=== PATIENT | male | born 1970 ===

== ENCOUNTER 2017-10-20 20:38 | Inpatient (IN) | payer OTHER ==
[2017-10-21] MEDS: ASPIRIN 81 MG PO SCH (06:37)
[2017-10-21] MEDS: METOPROLOL TARTRATE 12.5 MG TAB PO SCH (06:37)
[2017-10-21] MEDS: NITROGLYCERIN OINT 1 INCH/GM PACKET TOPICAL SCH ×2 (06:42→16:04)
[2017-10-21] MEDS ORDERED: IV FLUID CONTINUATION 900 ML IV ONE (08:13)
[2017-10-21] MEDS ORDERED: fentaNYL (PF) 50 MCG/ML 2 ML AMP ONE (08:23)
[2017-10-21] MEDS ORDERED: MIDAZOLAM 2 MG/2 ML VIAL ONE (08:23)
[2017-10-21] MEDS ORDERED: LIDOCAINE 2% INJ 20 MG/ML (20 ML MDV) ONE (08:23)
[2017-10-21] MEDS ORDERED: VERAPAMIL 2.5 MG/ML 2 ML AMP ONE (08:23)
[2017-10-21] MEDS ORDERED: fentaNYL (PF) 50 MCG/ML 2 ML AMP IV ONE (08:30)
[2017-10-21] MEDS: MIDAZOLAM 2 MG/2 ML VIAL IV ONE ×2 (08:30→08:42)
[2017-10-21] MEDS ORDERED: LIDOCAINE 2% INJ 20 MG/ML SQ ONE (08:37)
[2017-10-21] MEDS ORDERED: HEPARIN SODIUM 1,000 UN/ML (10ML VL) ONE (08:39)
[2017-10-21] MEDS ORDERED: VERAPAMIL SYRINGE (5 MG/10 ML) INTRAARTER ONE (08:39)
[2017-10-21] MEDS ORDERED: HEPARIN SODIUM 1,000 UN/ML (10ML VL) IV ONE (08:41)
[2017-10-21] MEDS ORDERED: ATORVASTATIN 20 MG TAB PO SCH (09:00)
[2017-10-21] MEDS ORDERED: RX INFO: IV CONTRAST WAS GIVEN 1 EACH MISC MISCELLANE PRN (09:10)
[2017-10-21] MEDS ORDERED: IOPAMIDOL-370 125ML BTL INJ ONE (09:10)
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
[2017-10-21] MEDS ORDERED: MD COMMUNICATION TO PHARMACY 1 EACH MISC PO ONE (09:27)
[2017-10-21 10:03] LABS: HCT 50.5 % (39.0-53.0); HGB 16.7 gm/dL (13.0-17.5); MCH 30.1 pg (25.0-35.0); MCHC 33.2 g/dL (31.0-37.0); MCV 90.6 fL (80.0-100.0); Mean Platelet Volume 7.6; Platelet Count 239 k/uL (150-450); RBC 5.57 m/uL (4.30-5.90); RDW 13.9 % (11.5-15.5); WBC 8.5 k/uL (3.8-10.6)
[2017-10-21 10:11] LABS: INR 1.2 (<1.2); Partial Thromboplastin Time 60.3 sec (22.0-30.0); Prothrombin Time 11.4 sec (9.0-12.0)
[2017-10-21 10:13] LABS: ALT 64 U/L (21-72); AST 28 U/L (17-59); Albumin 4.2 g/dL (3.5-5.0); Alkaline Phosphatase 59 U/L (38-126); Anion Gap 13 mmol/L; Blood Urea Nitrogen 13 mg/dL (9-20); Calcium 9.4 mg/dL (8.4-10.2); Carbon Dioxide 23 mmol/L (22-30); Chloride 106 mmol/L (98-107); Glucose 115 mg/dL (74-99); Potassium 4.7 mmol/L (3.5-5.1); Sodium 142 mmol/L (137-145); Total Bilirubin 0.6 mg/dL (0.2-1.3); Total Protein 7.3 g/dL (6.3-8.2)
[2017-10-21 10:39] LABS: Eosinophils # (M) 0.17 k/uL (0-0.7); Lymphocytes # (M) 3.23 k/uL (1.0-4.8); Monocytes # (M) 0.51 k/uL (0-1.0); Neutrophils # (M) 4.59 k/uL (1.3-7.7); Neutrophils % (M) 54 %; Nucleated Red Blood Cells 0 /100 WBC (0-0); Total Cells Counted 100
[2017-10-21] MEDS: SODIUM CHLORIDE 0.9% 1,000 ML IV SCH (11:17)
[2017-10-21] MEDS: HEPARIN SOD,PORK IN 0.45% NACL 25,000 UNIT in 0.45% NACL 1 500ML.BAG IV SCH (11:17)
[2017-10-21 11:28] LABS: Cholesterol 224 mg/dL (<200); HDL Cholesterol 40 mg/dL (40-60); LDL Cholesterol,Calculated 169 mg/dL (0-99); Triglycerides 73 mg/dL (<150)
[2017-10-21 11:43] LABS: Magnesium 2.1 mg/dL (1.6-2.3)
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
[2017-10-21] MEDS ORDERED: NITROGLYCERIN SL TABS 0.4 MG TAB SUBLINGUAL PRN (13:15)
[2017-10-21] MEDS ORDERED: MORPHINE SULF 5MG/10ML VL IV STA (13:25)
[2017-10-21] MEDS: MORPHINE SULFATE 4MG/4ML SYRG IVP PRN ×2 (13:28→15:58)
[2017-10-21 13:55] LABS: Appearance,Urine Clear (Clear); Bilirubin,Urine Negative (Negative); Blood,Urine Negative (Negative); Color,Urine Light Yellow; Glucose,Urine (UA) Negative (Negative); Ketones,Urine Negative (Negative); Leukocyte Esterase,Urine Negative (Negative); Nitrite,Urine Negative (Negative); PH, Urine 6.5 (5.0-8.0); Protein,Urine Negative (Negative); Specific Gravity,Urine 1.033 (1.001-1.035); Urobilinogen,Urine <2.0 mg/dL (<2.0)
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
--- NOTE | 2017-10-21 14:39 | P.CNPUL ---
History of Present Illness Consult date: 10/21/17 Reason for consult: chest pain Chief complaint: CAD, chest pain History of present illness: Consult dated 10/21/2017 47-year-old male from seen in consultation. He appeared apparently scheduled for bypass grafting tomorrow. He apparently underwent recent cardiac catheterization and was found have significant three-vessel disease. The catheterization revealed significant disease in the left main coronary artery, the mid LAD, and also the distal right coronary artery. The patient is a heavy smoker. Has been smoking for at least 30 years a pack or more a day. Sees Dr. Stone as his primary doctor. Only medication he takes at home with Suboxone. A chest x-ray will be ordered. Also, an EKG showed some mild elevation of the ST segments in the inferior leads. He did have elevated troponins as well. The patient will need a spirometry before the surgery tomorrow. We'll also instruct him on the proper use of the incentive spirometer in anticipation of bypass grafting and postoperative care. Review of Systems A 12 point review of system is positive for chest pain. The patient also had complaints of shortness of breath as well as diaphoresis and dizziness. Past Medical History Additional Past Medical History / Comment(s): Remote history of hyperlipidemia Last Myocardial Infarction Date:: October 2017 History of Any Multi-Drug Resistant Organisms: None Reported Past Surgical History: Orthopedic Surgery Additional Past Surgical History / Comment(s): cervical fusion, hand surgery- reattachment of his right thumb Past Anesthesia/Blood Transfusion Reactions: No Reported Reaction Past Psychological History: No Psychological Hx Reported Smoking Status: Current every day smoker (Smokes 1 pack per day.) Past Alcohol Use History: None Reported (History of EtOH abuse) Past Drug Use History: Marijuana Additional Drug Use History / Comment(s): History of prescription drug abuse, currently on Suboxone. - Past Family History Family Additional Family Medical History / Comment(s): Father diagnosed with CAD in his late 70s otherwise his family normally lived to older age and healthy overall. Denies any history of premature CAD Medications and Allergies Home Medications Medication Instructions Recorded Confirmed Type Buprenorphine HCl/Naloxone HCl 0.5 film SUBLINGUAL DAILY 10/20/17 10/21/17 History [Suboxone 8 mg-2 mg Sl Film] Allergies Allergy/AdvReac Type Severity Reaction Status Date / Time No Known Allergies Allergy Verified 04/15/18 11:41 Physical Exam Osteopathic Statement: *. No significant issues noted on an osteopathic structural exam other than those noted in the History and Physical/Consult. Vitals: Vital Signs Temp Pulse Pulse Pulse Resp BP Pulse Ox 10/21/17 12:00 55 L 48 L 10/21/17 11:55 55 L 149/92 10/21/17 10:55 48 L 14 142/80 10/21/17 10:25 55 L 12 147/88 10/21/17 09:55 48 L 12 142/80 10/21/17 09:40 55 L 12 132/84 10/21/17 09:25 55 L 14 135/92 10/21/17 09:10 55 L 14 127/74 99 10/21/17 08:10 78 14 10/21/17 08:09 96.9 F L 78 16 110/74 99 10/21/17 06:28 97.7 F 63 18 109/69 96 10/21/17 04:00 97.7 F 63 18 109/69 96 10/21/17 00:00 97.6 F 60 19 100/59 100 10/20/17 22:41 97.6 F 60 19 100/59 100 Intake and Output 10/20/17 10/21/17 10/21/17 22:59 06:59 14:59 Intake Total 300 778 Output Total 800 Balance 300 -22 Intake: IV 200 Intake, IV Titration 338 Amount Sodium Chloride 0.9% 1, 338 000 ml @ 75 mls/hr IV . [id number] [facility] Rx#:[id number] Oral 300 240 Output: Urine 800 Other: Voiding Method Toilet Toilet Urinal Urinal # Voids 0 Weight 93.8 kg 94 kg No acute distress, oriented 3. Nasal O2 in place. HEENT examination is grossly unremarkable. Mucous membranes are moist. No oral lesions. Neck supple. Full range of motion. No adenopathy thyromegaly or neck vein distention. Cardiovascular examination reveals regular rhythm rate. S1-S2 normal. No S3 or S4. No discernible murmur noted. Lungs reveal clear breath sounds. Her sounds are equal bilaterally. No adventitious lung sounds including wheezes rhonchi or crackles. Abdomen soft bowel sounds are heard. No masses or tenderness. Extremities are intact. No cyanosis clubbing or edema. Skin is without rash or lesion. Neurologic examination is brief but nonfocal. Results - Laboratory Findings CBC and BMP: 10/21/17 09:51 10/21/17 09:51 PT/INR, D-dimer PT 11.4 sec (9.0-12.0) 10/21/17 09:51 INR 1.2 (<1.2) H 10/21/17 09:51 Abnormal lab findings: Abnormal Labs 10/21/17 10/21/17 10/21/17 09:51 09:51 09:51 INR 1.2 H APTT 60.3 H Glucose 115 H Troponin I Cholesterol 224 H LDL Cholesterol, Calc 169 H 10/21/17 09:51 INR APTT Glucose Troponin I 1.060 H* Cholesterol LDL Cholesterol, Calc - Diagnostic Findings Chest x-ray: image reviewed (Meds and labs are reviewed.) Assessment and Plan Assessment: Assessment Severe three-vessel coronary artery disease, status post bypass grafting in the morning Previous history of heavy tobacco use History of prescription drug abuse, currently on Suboxone Vague history of hyperlipidemia Plan: Plan dated 10/21/2017 The patient will get a chest x-ray. We'll also make sure that we get bedside spirometry. We'll instruct him on the use of the incentive spirometer. Additional recommendations and suggestions are forthcoming. Surgery will take place tomorrow. My partner will see the patient postoperatively. Time with Patient: Greater than 30
--- NOTE | 2017-10-21 15:22 | XR ---
EXAMINATION TYPE: XR chest 1V portable DATE OF EXAM: 10/21/2017 Comparison: None Clinical History: 47-year-old male PreOp Cardiac Surgery Findings: The heart is normal size. Aorta and pulmonary vasculature within normal limits. Strandy atelectasis l ower lungs. No consolidation or pleural effusion. ACDF hardware. Impression: No acute cardiopulmonary process.
--- NOTE | 2017-10-21 15:32 | US ---
EXAMINATION TYPE: US carotid duplex BILAT DATE OF EXAM: 10/21/2017 COMPARISON: NONE CLINICAL HISTORY: 47-year-old male preoperative cardiac surgery. Pre op cardiac surgery, exam done po rtable in ICU TECHNIQUE: Carotid duplex ultrasound examination. Indirect Doppler criteria was utilized. FINDINGS: EXAM MEASUREMENTS: RIGHT: Peak Systolic Velocity (PSV) cm/sec ----- Right CCA: 75.6 ----- Right ICA: 66.0 ----- Right ECA: 101.3 ICA/CCA ratio: 0.9 RIGHT: End Diastole cm/sec ----- Right CCA: 22.3 ----- Right ICA: 26.2 ----- Right ECA: 22.1 LEFT: Peak Systolic Velocity (PSV) cm/sec ----- Left CCA: 72.2 ----- Left ICA: 77.8 ----- Left ECA: 97.3 ICA/CCA ratio: 1.1 LEFT: End Diastole cm/sec ----- Left CCA: 20.6 ----- Left ICA: 26.3 ----- Left ECA: 20.2 VERTEBRALS (direction of flow): Right Vertebral: Antegrade Left Vertebral: Antegrade Rhythm: Normal Railroad Operator notes: Bilateral intimal thickening, minimal plaque bilateral bulb, no elevated velocitie s, no significant stenosis. IMPRESSION: No hemodynamically significant stenosis appreciated in either internal carotid artery. Criteria for Assigning % of Stenosis / Diameter reduction (Estimation based on the indirect measurements of the internal carotid artery velocities (ICA PSV). 1. Normal (no stenosis)=ICA PSV < 125 cm/s: ratio < 2.0: ICA EDV<40 cm/s. 2. Less than 50% stenosis=ICA PSV < 125 cm/s: ratio < 2.0: ICA EDV<40 cm/s. 3. 50 to 69% stenosis=ICA PSV of 125 to 230 cm/s: ration 2.0 ? 4.0: ICA EDV 40-100 cm/s. 4. Greater than 70% stenosis to near occlusion= ICA PSV > 230 cm/s: ratio > 4.0: ICA EDV > 100 cm/s. 5. Near occlusion= ICA PSV velocities may be low or undetectable: variable ratio and ICA EDV. 6. Total occlusion=unable to detect flow.
[2017-10-21] MEDS: HEPARIN SODIUM,PORCINE 5,000 UNIT/ML 1 ML VIAL IV PRN (18:08)
[2017-10-21 18:24] LABS: Glucose,Whole Blood 99 mg/dL (75-99)
[2017-10-21] MEDS: MUPIROCIN 2% OINT 22 GM TUBE NASAL SCH (21:58)
--- NOTE | 2017-10-21 23:01 | P.CONS ---
History of Present Illness - Reason for Consult Consult date: 10/21/17 Medical management - Chief Complaint Chest pain - History of Present Illness Patient is a 47-year-old male with a known history of substance abuse currently on Suboxone, active cigarette smoking was initially presented to [facility] with complaints of chest pain and shortness of breath while driving and is about to pass out. Patient withdrew to the side and EMS was called. Chest pain is mainly left retrosternal, 10 x 10 severity squeezing- like pain radiating to the neck and associated with shortness of breath and sweating. Patient also has nausea. No episodes of vomiting. Patient was found have ST-T wave changes and was initially taken to [facility]. Initial troponin was negative at 0.017. Troponin was trending up to 0.1 and 0.5 and 1.060. Patient was given a dose of Lovenox at [facility]. After evaluation by cardiology and increasing troponin level and EKG changes with ST elevation patient was eventually transferred to [facility] for immediate cardiac catheterization. Patient was started on heparin drip. Patient has been having hot and cold flashes and sweating for the past 2 weeks and also exertional shortness of breath for the past 2 weeks. Patient is not any medications for hyperlipidemia at home. Patient's father had coronary artery disease/PA at age 70. Patient denied any recent illnesses or sick contacts. Cardiac catheterization showed Diffuse coronary artery disease with a 60-70% ostial stenosis of the left main, total occlusion of the mid LAD and critical lesion involving the distal RCA. There are collaterals from the right to the left anterior descending Due to severe coronary artery disease, and left main CAD, CT surgery was consulted to evaluate for bypass graft. Review of Systems Constitutional: Patient denies any fever or chills . No generalized weakness or weight loss. Abdomen: Patient denied nausea vomiting and diarrhea and abdominal pain. Cardiovascular: Patient denies any chest pain or short of breath no palpitations. Respiratory: patient denied any cough is from production. No shortness of breath Neurologic: Patient denied any numbness or tingling headache. Musculoskeletal: Patient denies any complaints of joint swelling or deformity. Skin: Negative Psychiatric: Negative Endocrine: No heat or cold intolerance. No recent weight gain. Genitourinary: No dysuria or hematuria. All other 14 point ROS negative except the above Past Medical History Additional Past Medical History / Comment(s): Remote history of hyperlipidemia Last Myocardial Infarction Date:: October 2017 History of Any Multi-Drug Resistant Organisms: None Reported Past Surgical History: Orthopedic Surgery Additional Past Surgical History / Comment(s): cervical fusion, hand surgery- reattachment of his right thumb Past Anesthesia/Blood Transfusion Reactions: No Reported Reaction Past Psychological History: No Psychological Hx Reported Smoking Status: Current every day smoker (Smokes 1 pack per day.) Past Alcohol Use History: None Reported (History of EtOH abuse) Past Drug Use History: Marijuana Additional Drug Use History / Comment(s): History of prescription drug abuse, currently on Suboxone. - Past Family History Family Additional Family Medical History / Comment(s): Father diagnosed with CAD in his late 70s otherwise his family normally lived to older age and healthy overall. Denies any history of premature CAD Medications and Allergies Home Medications Medication Instructions Recorded Confirmed Type Buprenorphine HCl/Naloxone HCl 0.5 film SUBLINGUAL DAILY 10/20/17 10/21/17 History [Suboxone 8 mg-2 mg Sl Film] Allergies Allergy/AdvReac Type Severity Reaction Status Date / Time No Known Allergies Allergy Verified 10/21/17 11:41 Physical Exam Vitals: Vital Signs Temp Pulse Pulse Pulse Pulse Pulse Pulse 10/21/17 21:00 54 L 10/21/17 20:00 98.0 F 61 10/21/17 19:00 55 L 10/21/17 18:00 53 L 10/21/17 17:00 51 L 10/21/17 16:00 98.1 F 53 L 49 L 49 L 49 L 49 L 10/21/17 15:00 55 L 10/21/17 14:00 60 52 L 52 L 52 L 10/21/17 13:57 97.6 F 10/21/17 12:55 55 L 10/21/17 12:00 55 L 48 L 10/21/17 11:55 55 L 10/21/17 10:55 48 L 10/21/17 10:25 55 L 10/21/17 09:55 48 L 10/21/17 09:40 55 L 10/21/17 09:25 55 L 10/21/17 09:10 55 L 10/21/17 08:10 78 10/21/17 08:09 96.9 F L 78 10/21/17 06:28 97.7 F 63 10/21/17 04:00 97.7 F 63 10/21/17 00:00 97.6 F 60 10/20/17 22:41 97.6 F 60 Resp BP BP Pulse Ox 10/21/17 21:00 21 125/81 97 10/21/17 20:00 16 125/87 98 10/21/17 19:00 12 120/78 96 10/21/17 18:00 13 123/90 96 10/21/17 17:00 14 122/86 97 10/21/17 16:00 16 117/79 97 10/21/17 15:00 11 L 122/81 96 10/21/17 14:00 16 129/83 96 10/21/17 13:57 18 96 10/21/17 12:55 12 149/95 10/21/17 12:00 10/21/17 11:55 149/92 10/21/17 10:55 14 142/80 10/21/17 10:25 12 147/88 10/21/17 09:55 12 142/80 10/21/17 09:40 12 132/84 10/21/17 09:25 14 135/92 10/21/17 09:10 14 127/74 99 10/21/17 08:10 14 10/21/17 08:09 16 110/74 99 10/21/17 06:28 18 109/69 96 10/21/17 04:00 18 109/69 96 10/21/17 00:00 19 100/59 100 10/20/17 22:41 19 100/59 100 Intake and Output 10/21/17 10/21/17 10/21/17 06:59 14:59 22:59 Intake Total 853 1359.667 Output Total 800 1100 Balance 53 259.667 Intake: IV 200 150 Sodium Chloride 0.9% 1, 150 000 ml @ 75 mls/hr IV . [id number] [facility] Rx#:[id number] Intake, IV Titration 413 509.667 Amount Heparin Sod,Pork in 0.45% 134.667 NaCl 25,000 unit In 0.45 % NaCl 1 500ml.bag @ 10. 64 UNITS/KG/HR 20 mls/hr IV .Q24H [facility] Rx#: [id number] Sodium Chloride 0.9% 1, 413 375 000 ml @ 75 mls/hr IV . [id number] [facility] Rx#:[id number] Oral 240 700 Output: Urine 800 1100 Other: Voiding Method Toilet Toilet Toilet Urinal Urinal Urinal # Voids 0 0 Weight 94 kg 96.3 kg PHYSICAL EXAMINATION: Patient is lying in the bed comfortably, no acute distress, awake alert and oriented.. HEENT: Normocephalic. Neck is supple. Pupils reactive. Nostrils clear. Oral cavity is moist. Ears reveal no drainage. Neck reveals no JVD, carotid bruits, or thyromegaly. CHEST EXAMINATION: Trachea is central. Symmetrical expansion. Lung ruiz clear to auscultation and percussion. CARDIAC: Normal S1, S2 with no gallops. No murmurs ABDOMEN: Soft. Bowel sounds normal. No organomegaly. No abdominal bruits. Extremities: reveal no edema. No clubbing or cyanosis Neurologically awake, alert, oriented x3 with well-coordinated movements. No focal deficits noted Skin: No rash or skin lesions. Psychiatric: Coperative. Nonsuicidal Musculoskeletal: No joint swelling or deformity. Normal range of motion. Results CBC & Chem 7: 10/21/17 09:51 10/21/17 09:51 Labs: Abnormal Lab Results - Last 24 Hours (Table) 10/21/17 10/21/17 10/21/17 Range/Units 09:51 09:51 09:51 INR 1.2 H (<1.2) APTT 60.3 H (22.0-30.0) sec Glucose 115 H (74-99) mg/dL Troponin I (0.000-0.034) ng/mL Cholesterol 224 H (<200) mg/dL LDL Cholesterol, Calc 169 H (0-99) mg/dL 10/21/17 10/21/17 Range/Units 09:51 16:25 INR (<1.2) APTT 32.2 H (22.0-30.0) sec Glucose (74-99) mg/dL Troponin I 1.060 H* (0.000-0.034) ng/mL Cholesterol (<200) mg/dL LDL Cholesterol, Calc (0-99) mg/dL Assessment and Plan Assessment: Acute ST elevated PA status post cardiac catheterization showing multivessel disease including left main. Being evaluated by CT surgery for CABG Asymptomatic bradycardia with heart rate in 50s. Likely due to metoprolol Hyperlipidemia with LDL 169 Exertional shortness of breath for the past 2 weeks Nicotine addiction Substance abuse currently on Suboxone DVT prophylaxis. Patient is already on heparin drip for acute PA Plan: Patient will be continued on aspirin, statins, metoprolol at low-dose and lisinopril. Continued on heparin drip. Pain management with morphine. Will hold Suboxone for now. Continue with IV fluids. TSH within normal limits. Cardiology, pulmonary and CT surgery is following. Continue with the current management and further recommendations based on the clinical course. Time with Patient: Greater than 30
[2017-10-21 23:17] LABS: Hemoglobin A1C 5.5 % (4.0-6.0)
[2017-10-21 23:44] LABS: Hepatitis B Core IgM Non-Reactive (Non-Reactive)
[2017-10-22 00:14] LABS: Hepatitis A Antibody IgM Non-Reactive (Non-Reactive)
[2017-10-22] MEDS: NITROGLYCERIN OINT 1 INCH/GM PACKET TOPICAL SCH ×3 (00:45→16:06)
[2017-10-22] MEDS: SODIUM CHLORIDE 0.9% 1,000 ML IV SCH ×2 (00:48→14:53)
[2017-10-22 06:27] LABS: HCT 46.6 % (39.0-53.0); HGB 15.4 gm/dL (13.0-17.5); MCH 29.9 pg (25.0-35.0); MCHC 33.1 g/dL (31.0-37.0); MCV 90.5 fL (80.0-100.0); Mean Platelet Volume 7.5; Platelet Count 218 k/uL (150-450); RBC 5.15 m/uL (4.30-5.90); RDW 13.7 % (11.5-15.5); WBC 8.4 k/uL (3.8-10.6)
[2017-10-22] MEDS: HEPARIN SOD,PORK IN 0.45% NACL 25,000 UNIT in 0.45% NACL 1 500ML.BAG IV SCH (06:34)
[2017-10-22] MEDS: MORPHINE SULFATE 4MG/4ML SYRG IVP PRN (06:38)
[2017-10-22 06:56] LABS: Anion Gap 10 mmol/L; Blood Urea Nitrogen 11 mg/dL (9-20); Carbon Dioxide 22 mmol/L (22-30); Chloride 109 mmol/L (98-107); Glucose 107 mg/dL (74-99); Potassium 4.4 mmol/L (3.5-5.1); Sodium 141 mmol/L (137-145)
[2017-10-22] MEDS: HEPARIN SODIUM,PORCINE 5,000 UNIT/ML 1 ML VIAL IV PRN (07:14)
[2017-10-22 07:41] LABS: Eosinophils # (M) 0.08 k/uL (0-0.7); Lymphocytes # (M) 1.68 k/uL (1.0-4.8); Monocytes # (M) 0.17 k/uL (0-1.0); Neutrophils # (M) 6.47 k/uL (1.3-7.7); Neutrophils % (M) 77 %; Nucleated Red Blood Cells 0 /100 WBC (0-0); Total Cells Counted 100
[2017-10-22 07:46] LABS: Anisocytosis (M) Present
--- NOTE | 2017-10-22 08:16 | PN ---
PROGRESS NOTE Mr. Page is a 47-year-old male who presented with evidence of myocardial infarction, underwent cardiac catheterization, was found to have a totally occluded LAD with severe stenosis in the right coronary with collaterals from right to left as well as moderate significant disease in the left main. He has been evaluated to undergo coronary artery bypass grafting. He is complaining of some chest discomfort and dyspnea on and off during the night and early this morning. Hemodynamically stable. He has no evidence of tachycardia or bradycardia. He was seen by the surgical team and awaiting decision regarding timing of surgery. The patient continues on IV heparin; in addition to aspirin, Lipitor 80 mg daily, Zestril 5 mg daily, metoprolol 12 .5 mg daily, and nitro paste 1 inch q.8 hours. PHYSICAL EXAMINATION: Blood pressure 119/72 with the heart rate in the 50s. LUNG: Clear. HEART: Regular rate and rhythm. S1, S2. No S3. No rub. ABDOMEN: Soft, nontender. EXTREMITIES: No edema. Right radial pulse intact. LAB DATA: Lab data revealed a potassium 4.4. BUN and creatinine 11 and 0.72. Hemoglobin of 15.4. His cholesterol on admission was 224 with an LDL of 169. IMPRESSION: 1. Severe triple-vessel coronary artery disease. 2. Status post myocardial infarction. 3. Chronic tobacco use. 4. Hyperlipidemia. RECOMMENDATION: Patient will be continued on IV heparin. An echocardiogram with Doppler will be obtained. We will await the surgical input regarding the time of surgery. Patient would require surgical intervention soon because of the ongoing discomfort. Those findings and recommendations were discussed with the patient. FREDDIE / ERICH: [id number] /
[2017-10-22] MEDS: METOPROLOL TARTRATE 12.5 MG TAB PO SCH ×2 (08:45→08:51)
[2017-10-22] MEDS: MUPIROCIN 2% OINT 22 GM TUBE NASAL SCH ×2 (08:45→21:48)
[2017-10-22] MEDS: ATORVASTATIN 80 MG TAB PO SCH (08:45)
[2017-10-22] MEDS: ASPIRIN 81 MG PO SCH (08:56)
[2017-10-22] MEDS ORDERED: LISINOPRIL 5 MG TAB PO SCH (09:00)
[2017-10-22] MEDS: MORPHINE ORAL SOLN 10 MG/5 ML CUP PO PRN ×3 (10:07→23:02)
--- NOTE | 2017-10-22 10:12 | ECHOF ---
Referral Reason:preoperative CABG MEASUREMENTS -------- HEIGHT: 170.2 cm WEIGHT: 95.3 kg BP: 111/74 RVIDd: 3.1 cm (< 3.3) IVSd: 1.2 cm (0.6 - 1.1) LVIDd: 4.3 cm (3.9 - 5.3) LVPWd: 1.0 cm (0.6 - 1.1) IVSs: 1.6 cm LVIDs: 3.2 cm LVPWs: 1.6 cm LA Diam: 3.6 cm (2.7 - 3.8) LAESV Index (A-L): 19.96 ml/m Ao Diam: 3.0 cm (2.0 - 3.7) AV Cusp: 1.9 cm (1.5 - 2.6) MV EXCURSION: 14.230 mm (> 18.000) MV EF SLOPE: 106 mm/s (70 - 150) EPSS: 0.3 cm MV E Apollo: 0.71 m/s MV DecT: 208 ms MV A Apollo: 0.60 m/s MV E/A Ratio: 1.18 RAP: 5.00 mmHg RVSP: 19.65 mmHg FINDINGS -------- Sinus rhythm. This was a technically good study. The left ventricular size is normal. There is borderline concentric left ventricular hypertrophy. Overall left ventricular systolic function is normal with, an EF between 55 - 60 %. The right ventricle is normal in size. Normal LA size by volume 22+/-6 ml/m2. The right atrium is normal in size. The aortic valve is trileaflet and appears structurally normal. The mitral valve is normal. Mild tricuspid regurgitation present. Right ventricular systolic pressure is normal at < 35 mmHg. There is no pulmonic regurgitation present. The aortic root size is normal. Normal inferior vena cava with normal inspiratory collapse consistent with estimated right atrial pre ssure of 5 mmHg. There is no pericardial effusion. CONCLUSIONS -------- 1. Sinus rhythm. 2. This was a technically good study. 3. The left ventricular size is normal. 4. There is borderline concentric left ventricular hypertrophy. 5. Overall left ventricular systolic function is normal with, an EF between 55 - 60 %. 6. The right ventricle is normal in size. 7. Normal LA size by volume 22+/-6 ml/m2. 8. The right atrium is normal in size. 9. The aortic valve is trileaflet and appears structurally normal. 10. The mitral valve is normal. 11. Mild tricuspid regurgitation present. 12. Right ventricular systolic pressure is normal at < 35 mmHg. 13. There is no pulmonic regurgitation present. 14. The aortic root size is normal. 15. Normal inferior vena cava with normal inspiratory collapse consistent with estimated right atrial pressure of 5 mmHg. 16. There is no pericardial effusion. LOGISTICS TEAM LEAD: Trinity Beasley RDCS
--- NOTE | 2017-10-22 11:36 | P.PN ---
Subjective Progress Note Date: 10/22/17 Principal diagnosis: Severe multivessel coronary artery disease, non-ST elevated [place] 47-year-old male from seen in consultation. He appeared apparently scheduled for bypass grafting tomorrow. He apparently underwent recent cardiac catheterization and was found have significant three-vessel disease. The catheterization revealed significant disease in the left main coronary artery, the mid LAD, and also the distal right coronary artery. The patient is a heavy smoker. Has been smoking for at least 30 years a pack or more a day. Sees Dr. Stone as his primary doctor. Only medication he takes at home with Suboxone. A chest x-ray will be ordered. Also, an EKG showed some mild elevation of the ST segments in the inferior leads. He did have elevated troponins as well. The patient will need a spirometry before the surgery tomorrow. We'll also instruct him on the proper use of the incentive spirometer in anticipation of bypass grafting and postoperative care. On 10/12/2017 patient seen in follow-up in intensive care unit. He is resting in bed, complaining of burning sternal chest discomfort, that does not change with deep inspiration or position change. [place] acute respiratory complaints, currently on 2 L per nasal cannula with O2 sat at 96%. Hemodynamically stable, afebrile, sinus bradycardia on the monitor with a rate of 49-53 bpm with T-wave inversion in inferior leads. Maintenance IV fluids 0.9 normal seen in the 75 ML per hour, heparin drip is infusing at a rate of 15 u/kg/hr. Patient has Nitropaste on his right upper chest. He was given IV morphine for his persistent sternal chest discomfort. Patient had undergone heart catheterization yesterday and was found to have 60-70% left main disease, a totally occluded LAD with severe stenosis in the right coronary artery with collaterals. Patient remains nothing by mouth. No nausea, no vomiting no diaphoresis. We'll repeat a twelve-lead EKG. Currently awaiting evaluation for coronary artery bypass grafting possibly in next 24 hours. It is lab work shows W BC of 8.4, hemoglobin of 18.4, sodium is 141, potassium is 4.4, chloride is 109, BUN is 11 and creatinine 0.72, troponins was elevated at 1.060. 2-D echocardiogram was completed which revealed left ventricular systolic function within normal limits with EF between 55-60%. There was mild tricuspid regurgitation present, no pulmonary hypertension noted right ventricular systolic pressure was normal at less than 35 mmHg. Pericardial effusion was noted. Objective - Vital Signs Vital signs: Vital Signs Temp 98.3 F 10/22/17 04:00 Pulse 53 L 10/22/17 11:00 Resp 14 10/22/17 11:00 BP 105/73 10/22/17 11:00 Pulse Ox 96 10/22/17 11:00 Intake & Output 10/21/17 10/22/17 10/22/17 18:59 06:59 18:59 Intake Total 7377.442 8485.782 632.521 Output Total 9006 685 2555 Balance 637.667 671.782 -567.479 Weight 96.3 kg 95.7 kg Intake: IV 200 825 375 Sodium Chloride 0.9% 1, 825 375 000 ml @ 75 mls/hr IV . [id number] [facility] Rx#:[id number] Intake, IV Titration 847.667 396.782 17.521 Amount Heparin Sod,Pork in 0.45% 134.667 321.782 17.521 NaCl 25,000 unit In 0.45 % NaCl 1 500ml.bag @ 10. 64 UNITS/KG/HR 20 mls/hr IV .Q24H [facility] Rx#: [id number] Sodium Chloride 0.9% 1, 713 75 000 ml @ 75 mls/hr IV . [id number] [facility] Rx#:[id number] Oral 940 240 Output: Urine 9277 487 6207 Other: Voiding Method Toilet Toilet Urinal Urinal Urinal # Voids 0 0 - Exam GENERAL EXAM: Alert, pleasant 47-year-old white male, complaining of a moderate headache and some burning midsternal chest discomfort, but denies any shortness of breath, appears to be fairly comfortable at rest, no nausea, no vomiting no diaphoresis. HEAD: Normocephalic/atraumatic. EYES: Normal reaction of pupils, equal size. Conjunctiva pink, sclera white. NOSE: Clear with pink turbinates. THROAT: No erythema or exudates. NECK: No masses, no JVD, no thyroid enlargement, no adenopathy. CHEST: No chest wall deformity. Symmetrical expansion. LUNGS: Equal air entry with no crackles, wheeze, rhonchi or dullness. CVS: Regular rate and rhythm, normal S1 and S2, no gallops, no murmurs, no rubs ABDOMEN: Soft, nontender. No hepatosplenomegaly, normal bowel sounds, no guarding or rigidity. EXTREMITIES: No clubbing, no edema, no cyanosis, 2+ pulses and upper and lower extremities. MUSCULOSKELETAL: Muscle strength and tone normal. SPINE: No scoliosis or deformity SKIN: No rashes CENTRAL NERVOUS SYSTEM: Alert and oriented -3. No focal deficits, tone is normal in all 4 extremities. PSYCHIATRIC: Alert and oriented -3. Appropriate affect. Intact judgment and insight. - Labs CBC & Chem 7: 10/22/17 06:18 10/22/17 06:18 Labs: Abnormal Lab Results - Last 24 Hours (Table) 10/21/17 10/21/17 10/21/17 Range/Units 09:51 09:51 16:25 APTT 32.2 H (22.0-30.0) sec Chloride (98-107) mmol/L Glucose (74-99) mg/dL Troponin I 1.060 H* (0.000-0.034) ng/mL Cholesterol 224 H (<200) mg/dL LDL Cholesterol, Calc 169 H (0-99) mg/dL 10/21/17 10/22/17 10/22/17 Range/Units 23:14 06:18 06:18 APTT 55.6 H 43.2 H (22.0-30.0) sec Chloride 109 H (98-107) mmol/L Glucose 107 H (74-99) mg/dL Troponin I (0.000-0.034) ng/mL Cholesterol (<200) mg/dL LDL Cholesterol, Calc (0-99) mg/dL Microbiology - Last 24 Hours (Table) 10/21/17 11:02 Nasal Screen MRSA/MSSA ([facility]) - Preliminary Nasal Swab 10/21/17 13:40 Urine Culture - Preliminary Urine,Clean Catch Assessment and Plan Plan: Assessment: #1. Severe three-vessel coronary artery disease, currently being evaluated for coronary artery bypass grafting #2. Non-ST elevated [place] #3. Previous history of heavy tobacco use #4. History of prescription drug abuse, currently on Suboxone #5. History of hyperlipidemia Plan: We'll obtain a repeat 12-lead EKG this morning, patient is having ongoing burning midsternal chest discomfort, but denies any dyspnea, denies any nausea vomiting or diaphoresis. He has an inch of Nitropaste on his chest, is receiving morphine IV push, is complaining of moderate headache. Hemodynamically stable, sinus rhythm sinus bradycardia on the monitor with T- wave inversion in the inferior leads. Echocardiogram results were reviewed. Patient will be kept nothing by mouth. Continue with heparin drip. Patient is currently being evaluated for coronary artery bypass grafting possibly in the next 24 hours. I performed a history & physical examination of the patient and discussed their management with my nurse practitioner, Lakshmi Flowers. I reviewed the nurse practitioner's note and agree with the documented findings and plan of care. Lung sounds are clear, diminished at the bases. The findings and the impression was discussed with the patient. I attest to the documentation by the nurse practitioner. Time with Patient: Greater than 30
--- NOTE | 2017-10-22 11:51 | P.PN ---
Subjective Progress Note Date: 10/22/17 Principal diagnosis: Diffuse coronary artery disease with 60-70% ostial stenosis of the left main, total occlusion of the mid LAD and critical lesion involving the distal RCA. STEMI. Current tobacco dependence with preoperative FEV1 96% of predicted. History of prescription drug abuse currently on Suboxone. History of remote alcohol abuse. History of hyperlipidemia. History of marijuana use. Family history of coronary artery disease. Patient's currently laying in bed in the intensive care unit in no acute distress watching TV. Upon assessment this morning patient was sleeping, however once woken up states that overnight he was having 3 out of 10 chest pain which radiates to his jaw and both arms, associated with some nausea and shortness of breath. States he did not notify his nurse and did fall back asleep. Objective - Vital Signs Vital signs: Vital Signs Temp 98.3 F 10/22/17 04:00 Pulse 49 L 10/22/17 10:00 Resp 16 10/22/17 10:00 BP 132/87 10/22/17 10:00 Pulse Ox 96 10/22/17 10:00 Intake & Output 10/21/17 10/22/17 10/22/17 18:59 06:59 18:59 Intake Total 7042.858 9438.782 557.521 Output Total 5027 778 7465 Balance 637.667 671.782 -642.479 Weight 96.3 kg 95.7 kg Intake: IV 200 825 300 Sodium Chloride 0.9% 1, 825 300 000 ml @ 75 mls/hr IV . [id number] [facility] Rx#:[id number] Intake, IV Titration 847.667 396.782 17.521 Amount Heparin Sod,Pork in 0.45% 134.667 321.782 17.521 NaCl 25,000 unit In 0.45 % NaCl 1 500ml.bag @ 10. 64 UNITS/KG/HR 20 mls/hr IV .Q24H [facility] Rx#: [id number] Sodium Chloride 0.9% 1, 713 75 000 ml @ 75 mls/hr IV . [id number] [facility] Rx#:[id number] Oral 940 240 Output: Urine 0595 052 5473 Other: Voiding Method Toilet Toilet Urinal Urinal Urinal # Voids 0 0 - Constitutional General appearance: Present: cooperative, no acute distress - Respiratory Details: Lungs sounds diminished bilaterally. Respirations even, nonlabored. Currently on room air with oxygen saturation 94%. - Cardiovascular Details: S1, S2 present. Regular rate and rhythm, sinus rhythm on telemetry. Palpable peripheral pulses bilaterally. No edema present. No calf pain or tenderness noted. Currently on IV heparin and nitro paste. - Gastrointestinal Gastrointestinal Comment(s): Abdomen soft, nontender, nondistended. Active bowel sounds 4 quadrants. Tolerated breakfast this morning, currently nothing by mouth. - Genitourinary Genitourinary Comment(s): Continues to void clear, yellow urine. - Integumentary Integumentary Comment(s): Skin is warm and dry with evidence of good perfusion. - Neurologic Neurologic: Present: CNII-XII intact - Musculoskeletal Musculoskeletal: Present: strength equal bilaterally - Psychiatric Psychiatric: Present: A&O x's 3, appropriate affect, intact judgment & insight - Allied health notes Allied health notes reviewed: nursing - Labs CBC & Chem 7: 10/22/17 06:18 10/22/17 06:18 Labs: Abnormal Lab Results - Last 24 Hours (Table) 10/21/17 10/21/17 10/21/17 Range/Units 09:51 09:51 16:25 APTT 32.2 H (22.0-30.0) sec Chloride (98-107) mmol/L Glucose (74-99) mg/dL Troponin I 1.060 H* (0.000-0.034) ng/mL Cholesterol 224 H (<200) mg/dL LDL Cholesterol, Calc 169 H (0-99) mg/dL 10/21/17 10/22/17 10/22/17 Range/Units 23:14 06:18 06:18 APTT 55.6 H 43.2 H (22.0-30.0) sec Chloride 109 H (98-107) mmol/L Glucose 107 H (74-99) mg/dL Troponin I (0.000-0.034) ng/mL Cholesterol (<200) mg/dL LDL Cholesterol, Calc (0-99) mg/dL Microbiology - Last 24 Hours (Table) 10/21/17 11:02 Nasal Screen MRSA/MSSA ([facility]) - Preliminary Nasal Swab 10/21/17 13:40 Urine Culture - Preliminary Urine,Clean Catch - Imaging and Cardiology Chest x-ray: report reviewed, image reviewed Results of carotid Dopplers, vein mapping, echocardiogram reviewed Assessment and Plan (1) Hyperlipidemia Current Visit: Yes Status: Chronic Code(s): E78.5 - HYPERLIPIDEMIA, UNSPECIFIED SNOMED Code(s): 59746732 (2) History of ETOH abuse Current Visit: No Status: Resolved Code(s): Z87.898 - PERSONAL HISTORY OF OTHER SPECIFIED CONDITIONS SNOMED Code(s): 855928500 (3) Marijuana use, episodic Current Visit: Yes Status: Chronic Code(s): F12.90 - CANNABIS USE, UNSPECIFIED, UNCOMPLICATED SNOMED Code(s): 007579422 (4) History of prescription drug abuse Current Visit: No Status: Resolved Code(s): F19.21 - OTHER PSYCHOACTIVE SUBSTANCE DEPENDENCE, IN REMISSION SNOMED Code(s): 567273954 (5) Nicotine dependence Current Visit: Yes Status: Chronic Code(s): F17.200 - NICOTINE DEPENDENCE, UNSPECIFIED, UNCOMPLICATED SNOMED Code(s): 36007107 (6) ST elevation myocardial infarction (STEMI) Current Visit: Yes Status: Acute Code(s): I21.3 - ST ELEVATION (STEMI) MYOCARDIAL INFARCTION OF [facility] SITE SNOMED Code(s): 907182383 (7) Sinus bradycardia Current Visit: Yes Status: Chronic Code(s): R00.1 - BRADYCARDIA, UNSPECIFIED SNOMED Code(s): 18005979 Plan: 1. Continue aspirin, statin, beta yaakov, IV heparin, nitro. Maximize medical management. 2. Will plan for surgical revascularization soon. If patient continues to complain of chest pain, may need intra-aortic balloon pump preoperatively. 3. Will repeat troponin as only one was drawn to determine if decreasing. 4. Preoperative teaching reinforced. Supportive care given. 5. ICU management per spiral binder. 6. Smoking cessation strongly encouraged. 7. More recommendations to follow. Time with Patient: Greater than 30
[2017-10-22] MEDS: ACETAMINOPHEN IV (For NPO) 1,000 MG in EMPTY BAG 1 BAG IVPB SCH ×2 (16:46→21:48)
[2017-10-23] MEDS: NITROGLYCERIN OINT 1 INCH/GM PACKET TOPICAL SCH ×2 (00:09→09:14)
[2017-10-23] MEDS: HEPARIN SOD,PORK IN 0.45% NACL 25,000 UNIT in 0.45% NACL 1 500ML.BAG IV SCH ×2 (01:30→18:27)
[2017-10-23] MEDS: ACETAMINOPHEN IV (For NPO) 1,000 MG in EMPTY BAG 1 BAG IVPB SCH ×3 (04:38→18:30)
[2017-10-23] MEDS: SODIUM CHLORIDE 0.9% 1,000 ML IV SCH ×2 (04:38→18:29)
[2017-10-23 04:44] LABS: HCT 44.9 % (39.0-53.0); HGB 15.5 gm/dL (13.0-17.5); MCH 30.8 pg (25.0-35.0); MCHC 34.6 g/dL (31.0-37.0); Mean Platelet Volume 7.4; Platelet Count 210 k/uL (150-450); RBC 5.05 m/uL (4.30-5.90); RDW 13.7 % (11.5-15.5); WBC 7.5 k/uL (3.8-10.6)
[2017-10-23 05:12] LABS: Monocytes # (M) 0.38 k/uL (0-1.0); Neutrophils # (M) 2.93 k/uL (1.3-7.7); Neutrophils % (M) 39 %; Nucleated Red Blood Cells 0 /100 WBC (0-0); Total Cells Counted 100
[2017-10-23 05:26] LABS: ALT 35 U/L (21-72); AST 20 U/L (17-59); Albumin 3.7 g/dL (3.5-5.0); Alkaline Phosphatase 51 U/L (38-126); Anion Gap 10 mmol/L; Blood Urea Nitrogen 11 mg/dL (9-20); Calcium 9.4 mg/dL (8.4-10.2); Carbon Dioxide 22 mmol/L (22-30); Chloride 108 mmol/L (98-107); Glucose 101 mg/dL (74-99); Potassium 4.2 mmol/L (3.5-5.1); Sodium 140 mmol/L (137-145); Total Bilirubin 0.6 mg/dL (0.2-1.3); Total Protein 6.3 g/dL (6.3-8.2)
--- NOTE | 2017-10-23 09:14 | PN ---
PROGRESS NOTE DATE OF SERVICE: 10/13/2017. HISTORY: Mr. Page is a 47-year-old male with no prior documented coronary artery disease, who presented with non ST-segment elevation myocardial infarction. Underwent cardiac catheterization and was found to have a totally occluded LAD, left main disease, as well as significant disease in the distal right coronary artery. He had evidence of myocardial infarction. He has been evaluated by the surgical team and scheduled to undergo coronary artery bypass grafting tomorrow. During the night he had some discomfort on and off, but he is pain-free at this time. His breathing is stable. He continues to be, at this time, on aspirin once a day, IV heparin, Lipitor 80 mg daily, metoprolol tartrate 12.5 mg daily, nitroglycerin paste 1 inch every 8 hours. PHYSICAL EXAMINATION: Blood pressure 130/90 with a heart in the 50s. LUNGS: Clear. HEART: Regular rate and rhythm. S1, S2. No S3. No rub. ABDOMEN: Soft, nontender. EXTREMITIES: No edema. LAB DATA: Lab data revealed hemoglobin 15.5, BUN and creatinine 11 and 0.8. His troponin peak is down to 0.146. His echocardiogram that was performed yesterday revealed a preserved left ventricular systolic function. IMPRESSION: 1. Severe triple-vessel coronary disease with evidence of myocardial infarction. 2. History of chronic tobacco use. 3. Prior history of chronic pain. RECOMMENDATIONS: Patient will proceed with coronary artery bypass grafting tomorrow. In the meantime, we will continue on the present medical regimen. MMCLIVE / AGUSTÍNN: [id number] /
[2017-10-23] MEDS: ASPIRIN 81 MG PO SCH (09:15)
[2017-10-23] MEDS: ATORVASTATIN 80 MG TAB PO SCH (09:15)
[2017-10-23] MEDS: METOPROLOL TARTRATE 12.5 MG TAB PO SCH (09:16)
[2017-10-23] MEDS: MUPIROCIN 2% OINT 22 GM TUBE NASAL SCH ×2 (09:25→22:24)
--- NOTE | 2017-10-23 11:47 | P.PN ---
Subjective Progress Note Date: 10/23/17 Principal diagnosis: Diffuse coronary artery disease with 60-70% ostial stenosis of the left main, total occlusion of the mid LAD and critical lesion involving the distal RCA. Non-STEMI. Current tobacco dependence with preoperative FEV1 96% of predicted. History of prescription drug abuse currently on Suboxone. History of syncope History of remote alcohol abuse. History of hyperlipidemia. History of marijuana use. Family history of coronary artery disease. Patient's currently laying in bed in the intensive care unit in no acute distress watching TV. States his chest pain is continuous and mild, unrelieved with morphine. States his headache is much worse than his chest pain. Objective - Vital Signs Vital signs: Vital Signs Temp 98.7 F 10/23/17 08:00 Pulse 52 L 10/23/17 10:00 Resp 15 10/23/17 10:00 BP 121/79 10/23/17 10:00 Pulse Ox 94 L 10/23/17 10:00 Intake & Output 10/22/17 10/23/17 10/23/17 18:59 06:59 18:59 Intake Total 8983.221 7599.479 325 Output Total 3300 1050 Balance -1562.479 407.479 325 Weight 95.8 kg Intake: IV 900 975 325 ACETAMINOPHEN IV (For NPO 100 ) 1,000 mg In Empty Bag 1 bag @ 400 mls/hr IVPB Q6H [facility] Rx#:[id number] Sodium Chloride 0.9% 1, 900 975 225 000 ml @ 75 mls/hr IV . [id number] [facility] Rx#:[id number] Intake, IV Titration 117.521 482.479 Amount ACETAMINOPHEN IV (For NPO 100 ) 1,000 mg In Empty Bag 1 bag @ 400 mls/hr IVPB Q6H [facility] Rx#:[id number] Heparin Sod,Pork in 0.45% 17.521 482.479 NaCl 25,000 unit In 0.45 % NaCl 1 500ml.bag @ 10. 64 UNITS/KG/HR 20 mls/hr IV .Q24H [facility] Rx#: [id number] Oral 720 Output: Urine 3300 1050 Other: Voiding Method Urinal Urinal Toilet Urinal # Voids 0 1 # Bowel Movements 1 - Constitutional General appearance: Present: cooperative, no acute distress - Respiratory Details: Lungs sounds diminished bilaterally. Respirations even, nonlabored. Currently on room air with oxygen saturation 96%. Able to achieve 4000 mL on his incentive spirometry. - Cardiovascular Details: S1, S2 present. Regular rate and rhythm, sinus rhythm on telemetry. Palpable peripheral pulses bilaterally. No edema present. No calf pain or tenderness noted. Currently on IV heparin and nitro paste. - Gastrointestinal Gastrointestinal Comment(s): Abdomen soft, nontender, nondistended. Active bowel sounds 4 quadrants. Tolerating diet. - Genitourinary Genitourinary Comment(s): Continues to void clear, yellow urine. - Integumentary Integumentary Comment(s): Skin is warm and dry with evidence of good perfusion. - Neurologic Neurologic: Present: CNII-XII intact - Musculoskeletal Musculoskeletal: Present: strength equal bilaterally - Psychiatric Psychiatric: Present: A&O x's 3, appropriate affect, intact judgment & insight - Allied health notes Allied health notes reviewed: nursing - Labs CBC & Chem 7: 10/23/17 04:30 10/23/17 04:30 Labs: Abnormal Lab Results - Last 24 Hours (Table) 10/22/17 10/22/17 10/23/17 Range/Units 12:29 12:29 04:30 APTT 49.2 H (22.0-30.0) sec Chloride (98-107) mmol/L Glucose (74-99) mg/dL Troponin I 0.146 H* (0.000-0.034) ng/mL Crossmatch See Detail 10/23/17 10/23/17 Range/Units 04:30 04:30 APTT 55.8 H (22.0-30.0) sec Chloride 108 H (98-107) mmol/L Glucose 101 H (74-99) mg/dL Troponin I (0.000-0.034) ng/mL Crossmatch Microbiology - Last 24 Hours (Table) 10/21/17 11:02 Nasal Screen MRSA/MSSA ([facility]) - Final Nasal Swab 10/21/17 13:40 Urine Culture - Final Urine,Clean Catch Assessment and Plan (1) Hyperlipidemia Current Visit: Yes Status: Chronic Code(s): E78.5 - HYPERLIPIDEMIA, UNSPECIFIED SNOMED Code(s): 10958926 (2) History of ETOH abuse Current Visit: No Status: Resolved Code(s): Z87.898 - PERSONAL HISTORY OF OTHER SPECIFIED CONDITIONS SNOMED Code(s): 081098497 (3) Marijuana use, episodic Current Visit: Yes Status: Chronic Code(s): F12.90 - CANNABIS USE, UNSPECIFIED, UNCOMPLICATED SNOMED Code(s): 080071245 (4) History of prescription drug abuse Current Visit: No Status: Resolved Code(s): F19.21 - OTHER PSYCHOACTIVE SUBSTANCE DEPENDENCE, IN REMISSION SNOMED Code(s): 543746563 (5) Nicotine dependence Current Visit: Yes Status: Chronic Code(s): F17.200 - NICOTINE DEPENDENCE, UNSPECIFIED, UNCOMPLICATED SNOMED Code(s): 74368928 (6) ST elevation myocardial infarction (STEMI) Current Visit: Yes Status: Acute Code(s): I21.3 - ST ELEVATION (STEMI) MYOCARDIAL INFARCTION OF [facility] SITE SNOMED Code(s): 577013716 (7) Sinus bradycardia Current Visit: Yes Status: Chronic Code(s): R00.1 - BRADYCARDIA, UNSPECIFIED SNOMED Code(s): 31084209 Plan: 1. Continue aspirin, statin, beta yaakov, IV heparin. Will discontinue nitro paste, add IV nitro. Maximize medical management. 2. Will plan for surgical revascularization tomorrow. Nothing to eat or drink after midnight. 3. Repeat troponin drawn yesterday is decreasing. 4. Preoperative teaching reinforced. Supportive care given. 5. ICU management per cupola patcher. 6. Smoking cessation strongly encouraged. Encourage incentive spirometry use 10 times every hour. 7. More recommendations to follow. Time with Patient: Greater than 30
[2017-10-23] MEDS: MORPHINE ORAL SOLN 10 MG/5 ML CUP PO PRN (12:42)
--- NOTE | 2017-10-23 12:51 | P.PN ---
Subjective Progress Note Date: 10/23/17 47-year-old male patient is being seen in follow-up in the intensive care unit. The patient is having on and off chest pain and the patient is still currently on IV heparin. The patient met the cardiac surgeon and the patient is scheduled to undergo is quite bypass surgery tomorrow. Hemodynamically stable. No nausea or vomiting. No diaphoresis. No other complaints. No hemodynamic instability. Echocardiac Lionel showed a preserved LV function without any significant valvular abnormalities. He is a smoker and he has an FEV1 of 96% of predicted. He has remote history of alcohol abuse currently not showing any signs of delirium tremens. He has a positive family history of coronary artery disease. His father of, it is of coronary artery disease. Objective - Vital Signs Vital signs: Vital Signs Temp 98.7 F 10/23/17 08:00 Pulse 60 10/23/17 12:34 Resp 12 10/23/17 12:00 BP 131/87 10/23/17 12:00 Pulse Ox 94 L 10/23/17 12:00 Intake & Output 10/22/17 10/23/17 10/23/17 18:59 06:59 18:59 Intake Total 3028.266 3662.479 475 Output Total 3300 1050 600 Balance -1562.479 407.479 -125 Weight 95.8 kg Intake: IV 900 975 475 ACETAMINOPHEN IV (For NPO 100 ) 1,000 mg In Empty Bag 1 bag @ 400 mls/hr IVPB Q6H [facility] Rx#:[id number] Sodium Chloride 0.9% 1, 900 975 375 000 ml @ 75 mls/hr IV . [id number] [facility] Rx#:[id number] Intake, IV Titration 117.521 482.479 Amount ACETAMINOPHEN IV (For NPO 100 ) 1,000 mg In Empty Bag 1 bag @ 400 mls/hr IVPB Q6H [facility] Rx#:[id number] Heparin Sod,Pork in 0.45% 17.521 482.479 NaCl 25,000 unit In 0.45 % NaCl 1 500ml.bag @ 10. 64 UNITS/KG/HR 20 mls/hr IV .Q24H [facility] Rx#: [id number] Oral 720 Output: Urine 3300 1050 600 Other: Voiding Method Urinal Urinal Toilet Urinal # Voids 0 1 # Bowel Movements 1 - Exam - Constitutional General appearance: Present: cooperative, no acute distress - Respiratory Details: Lungs sounds diminished bilaterally. Respirations even, nonlabored. Currently on room air with oxygen saturation 96%. Able to achieve 4000 mL on his incentive spirometry. - Cardiovascular Details: S1, S2 present. Regular rate and rhythm, sinus rhythm on telemetry. Palpable peripheral pulses bilaterally. No edema present. No calf pain or tenderness noted. Currently on IV heparin and nitro paste. - Gastrointestinal Gastrointestinal Comment(s): Abdomen soft, nontender, nondistended. Active bowel sounds 4 quadrants. Tolerating diet. - Genitourinary Genitourinary Comment(s): Continues to void clear, yellow urine. - Integumentary Integumentary Comment(s): Skin is warm and dry with evidence of good perfusion. - Neurologic Neurologic: Present: CNII-XII intact - Musculoskeletal Musculoskeletal: Present: strength equal bilaterally - Psychiatric Psychiatric: Present: A&O x's 3, appropriate affect, intact judgment & insight - Labs CBC & Chem 7: 10/23/17 04:30 10/23/17 04:30 Labs: Abnormal Lab Results - Last 24 Hours (Table) 10/22/17 10/22/17 10/23/17 Range/Units 12:29 12:29 04:30 APTT 49.2 H (22.0-30.0) sec Chloride (98-107) mmol/L Glucose (74-99) mg/dL Troponin I 0.146 H* (0.000-0.034) ng/mL Crossmatch See Detail 10/23/17 10/23/17 Range/Units 04:30 04:30 APTT 55.8 H (22.0-30.0) sec Chloride 108 H (98-107) mmol/L Glucose 101 H (74-99) mg/dL Troponin I (0.000-0.034) ng/mL Crossmatch Microbiology - Last 24 Hours (Table) 10/21/17 11:02 Nasal Screen MRSA/MSSA ([facility]) - Final Nasal Swab 10/21/17 13:40 Urine Culture - Final Urine,Clean Catch Assessment and Plan Plan: Assessment: #1. Severe three-vessel coronary artery disease, and this patient is scheduled to undergo coronary bypass surgery in a.m. The patient currently on IV heparin. Hemodynamically stable. #2. Non-ST elevated [place] #3. Previous history of heavy tobacco use, based on FEV1 is noted of 96% of predicted. The patient is doing well on his incentive spirometer #4. History of prescription drug abuse, currently on Suboxone #5. History of hyperlipidemia Plan Continue aspirin and beta blockers and statins. Keep the patient IV heparin until tomorrow. Monitor for any chest pain. The tentative plan is to proceed with coronary bypass surgery with three-vessel bypass in a.m. unless his condition changes. Keep nothing by mouth after midnight. Necessary adjustments and arranges will be done for bypass surgery. The patient has been offered incentive spirometer. We'll continue to follow
--- NOTE | 2017-10-23 17:37 | P.PN ---
Subjective Progress Note Date: 10/22/17 Progress note being dictated for Dr. Wilson Interval history:Patient is a 47-year-old male with a known history of substance abuse currently on Suboxone, active cigarette smoking was initially presented to [facility] with complaints of chest pain and shortness of breath while driving and is about to pass out. Patient withdrew to the side and EMS was called. Chest pain is mainly left retrosternal, 10 x 10 severity squeezing-like pain radiating to the neck and associated with shortness of breath and sweating. Patient also has nausea. No episodes of vomiting. Patient was found have ST-T wave changes and was initially taken to [facility]. Initial troponin was negative at 0.017. Troponin was trending up to 0.1 and 0.5 and 1.060. Patient was given a dose of Lovenox at [facility]. After evaluation by cardiology and increasing troponin level and EKG changes with ST elevation patient was eventually transferred to [facility] for immediate cardiac catheterization. Patient was started on heparin drip. Patient has been having hot and cold flashes and sweating for the past 2 weeks and also exertional shortness of breath for the past 2 weeks. Patient is not any medications for hyperlipidemia at home. Patient's father had coronary artery disease/[place] at age 70. Patient denied any recent illnesses or sick contacts. Cardiac catheterization showed Diffuse coronary artery disease with a 60-70% ostial stenosis of the left main, total occlusion of the mid LAD and critical lesion involving the distal RCA. There are collaterals from the right to the left anterior descending Due to severe coronary artery disease, and left main CAD, CT surgery was consulted to evaluate for bypass graft. 10/22/2017 having intermittent episodes of midsternal nonradiating chest pain, currently chest pain-free. Telemetry sinus bradycardia. Anticoagulated on heparin drip. Evaluated by cardiothoracic surgery with CABG recommended, pending schedule. Echo reporting normal LV function, EF 55-60%.. Objective - Vital Signs Vital signs: Vital Signs Temp 97.8 F 10/22/17 16:00 Pulse 56 L 10/22/17 18:00 Resp 16 10/22/17 18:00 BP 115/77 10/22/17 18:00 Pulse Ox 94 L 10/22/17 18:00 Intake & Output 10/21/17 10/22/17 10/22/17 18:59 06:59 18:59 Intake Total 2148.609 9230.782 1737.521 Output Total 1292 683 7323 Balance 637.667 671.782 -1012.479 Weight 96.3 kg 95.7 kg Intake: IV 200 825 900 Sodium Chloride 0.9% 1, 825 900 000 ml @ 75 mls/hr IV . [id number] [facility] Rx#:[id number] Intake, IV Titration 847.667 396.782 117.521 Amount ACETAMINOPHEN IV (For NPO 100 ) 1,000 mg In Empty Bag 1 bag @ 400 mls/hr IVPB Q6H MARICRUZ Rx#:[id number] Heparin Sod,Pork in 0.45% 134.667 321.782 17.521 NaCl 25,000 unit In 0.45 % NaCl 1 500ml.bag @ 10. 64 UNITS/KG/HR 20 mls/hr IV .Q24H MARICRUZ Rx#: [id number] Sodium Chloride 0.9% 1, 713 75 000 ml @ 75 mls/hr IV . [id number] [facility] Rx#:[id number] Oral 940 720 Output: Urine 3759 457 9481 Other: Voiding Method Toilet Toilet Urinal Urinal Urinal # Voids 0 0 - Exam Patient is lying in the bed comfortably, no acute distress, awake alert and oriented.. HEENT: Normocephalic. Neck is supple. Pupils reactive. Nostrils clear. Oral mucosa moist Neck reveals no JVD, carotid bruits, or thyromegaly. CHEST EXAMINATION: Trachea is central. Symmetrical expansion. Lungs clear to auscultation CARDIAC: Normal S1, S2 with no gallops. No murmurs ABDOMEN: Soft. Bowel sounds normal. No organomegaly. Extremities: reveal no edema. No clubbing or cyanosis Neurologically awake, alert, oriented x3 with well-coordinated movements. No focal deficits noted Skin: No rash or skin lesions. Psychiatric: Cooperative. Home, mildly anxious. Musculoskeletal: No joint swelling or deformity. Normal range of motion. - Labs CBC & Chem 7: 10/23/17 04:30 10/23/17 04:30 Labs: Abnormal Lab Results - Last 24 Hours (Table) 10/21/17 10/22/17 10/22/17 Range/Units 23:14 06:18 06:18 APTT 55.6 H 43.2 H (22.0-30.0) sec Chloride 109 H (98-107) mmol/L Glucose 107 H (74-99) mg/dL Troponin I (0.000-0.034) ng/mL 10/22/17 10/22/17 Range/Units 12:29 12:29 APTT 49.2 H (22.0-30.0) sec Chloride (98-107) mmol/L Glucose (74-99) mg/dL Troponin I 0.146 H* (0.000-0.034) ng/mL Microbiology - Last 24 Hours (Table) 10/21/17 11:02 Nasal Screen MRSA/MSSA (ALYX) - Preliminary Nasal Swab 10/21/17 13:40 Urine Culture - Preliminary Urine,Clean Catch Assessment and Plan Assessment: Acute ST elevated VA status post cardiac catheterization showing multivessel disease including left main. Being evaluated by CT surgery for CABG Asymptomatic bradycardia with heart rate in 50s. Likely due to metoprolol Hyperlipidemia with LDL 169 Exertional shortness of breath for the past 2 weeks Nicotine addiction Substance abuse currently on Suboxone DVT prophylaxis. Patient is already on heparin drip for acute VA Plan: Continue on current medication regime ,monitoring and symptomatic treatment. Maintain heparin drip, aspirin, beta yaakov, statin, LINDA inhibitor , nitrates. Evaluated by cardiothoracic surgery with CABG recommended. CABG date pending. Smoking cessation readdressed. Aggressive pulmonary toileting with incentive spirometer reinforced. The impression and plan of care has been dictated as directed. : I performed a history and examination of this patient, discussed the same with the dictator. I agree with the dictator's note ,documented as a scribe. Any additional findings or plans will be noted.
--- NOTE | 2017-10-23 17:43 | P.PN ---
Subjective Progress Note Date: 10/23/17 Progress note being dictated for Dr. Wilson Interval history:Patient is a 47-year-old male with a known history of substance abuse currently on Suboxone, active cigarette smoking was initially presented to [facility] with complaints of chest pain and shortness of breath while driving and is about to pass out. Patient withdrew to the side and EMS was called. Chest pain is mainly left retrosternal, 10 x 10 severity squeezing-like pain radiating to the neck and associated with shortness of breath and sweating. Patient also has nausea. No episodes of vomiting. Patient was found have ST-T wave changes and was initially taken to [facility]. Initial troponin was negative at 0.017. Troponin was trending up to 0.1 and 0.5 and 1.060. Patient was given a dose of Lovenox at [facility]. After evaluation by cardiology and increasing troponin level and EKG changes with ST elevation patient was eventually transferred to [facility] for immediate cardiac catheterization. Patient was started on heparin drip. Patient has been having hot and cold flashes and sweating for the past 2 weeks and also exertional shortness of breath for the past 2 weeks. Patient is not any medications for hyperlipidemia at home. Patient's father had coronary artery disease/[place] at age 70. Patient denied any recent illnesses or sick contacts. Cardiac catheterization showed Diffuse coronary artery disease with a 60-70% ostial stenosis of the left main, total occlusion of the mid LAD and critical lesion involving the distal RCA. There are collaterals from the right to the left anterior descending Due to severe coronary artery disease, and left main CAD, CT surgery was consulted to evaluate for bypass graft. 10/22/2017 having intermittent episodes of midsternal nonradiating chest pain, currently chest pain-free. Telemetry sinus bradycardia. Anticoagulated on heparin drip. Evaluated by cardiothoracic surgery with CABG recommended, pending schedule. Echo reporting normal LV function, EF 55-60%.. 10/23/2017 continues to have recurrent chest pain states throughout the night and this morning. Reports nonradiating, midsternal. Denies nausea, vomiting. Scheduled for CABG tomorrow. Objective - Vital Signs Vital signs: Vital Signs Temp 98.7 F 10/23/17 12:00 Pulse 57 L 10/23/17 16:00 Resp 13 10/23/17 16:00 BP 105/76 10/23/17 16:00 Pulse Ox 95 10/23/17 16:00 Intake & Output 10/22/17 10/23/17 10/23/17 18:59 06:59 18:59 Intake Total 8045.063 6637.479 975 Output Total 3300 1050 1600 Balance -1562.479 407.479 -625 Weight 95.8 kg Intake: IV 900 975 775 ACETAMINOPHEN IV (For NPO 175 ) 1,000 mg In Empty Bag 1 bag @ 400 mls/hr IVPB Q6H [facility] Rx#:[id number] Sodium Chloride 0.9% 1, 900 975 600 000 ml @ 75 mls/hr IV . [id number] [facility] Rx#:[id number] Intake, IV Titration 117.521 482.479 Amount ACETAMINOPHEN IV (For NPO 100 ) 1,000 mg In Empty Bag 1 bag @ 400 mls/hr IVPB Q6H [facility] Rx#:[id number] Heparin Sod,Pork in 0.45% 17.521 482.479 NaCl 25,000 unit In 0.45 % NaCl 1 500ml.bag @ 10. 64 UNITS/KG/HR 20 mls/hr IV .Q24H [facility]ICRUZ Rx#: [id number] Oral 720 200 Output: Urine 3300 1050 1600 Other: Voiding Method Urinal Urinal Toilet Urinal # Voids 0 1 # Bowel Movements 1 - Exam Patient is lying in the bed comfortably, no acute distress, awake alert and oriented.. HEENT: Normocephalic. Neck is supple. Pupils reactive. Nostrils clear. Oral mucosa moist Neck reveals no JVD, carotid bruits, or thyromegaly. CHEST EXAMINATION: Trachea is central. Symmetrical expansion. Lungs clear to auscultation CARDIAC: Normal S1, S2 with no gallops. No murmurs ABDOMEN: Soft. Bowel sounds normal. No organomegaly. Extremities: reveal no edema. No clubbing or cyanosis Neurologically awake, alert, oriented x3 with well-coordinated movements. No focal deficits noted Skin: No rash or skin lesions. Musculoskeletal: No joint swelling or deformity. Normal range of motion. - Labs CBC & Chem 7: 10/23/17 04:30 10/23/17 04:30 Labs: Abnormal Lab Results - Last 24 Hours (Table) 10/23/17 10/23/17 10/23/17 Range/Units 04:30 04:30 04:30 APTT 55.8 H (22.0-30.0) sec Chloride 108 H (98-107) mmol/L Glucose 101 H (74-99) mg/dL Crossmatch See Detail Microbiology - Last 24 Hours (Table) 10/21/17 11:02 Nasal Screen MRSA/MSSA (ALYX) - Final Nasal Swab 10/21/17 13:40 Urine Culture - Final Urine,Clean Catch Assessment and Plan Assessment: Acute Non-ST elevated NE status post cardiac catheterization showing multivessel disease including left main. CABG pending Asymptomatic bradycardia with heart rate in 50s. Hyperlipidemia with LDL 169 Exertional shortness of breath for the past 2 weeks Nicotine addiction Substance abuse currently on Suboxone Plan: Continue on current medication regime ,monitoring and symptomatic treatment. CABG scheduled for tomorrow. Aggressive pulmonary toileting with incentive spirometer reinforced. The impression and plan of care has been dictated as directed. : I performed a history and examination of this patient, discussed the same with the dictator. I agree with the dictator's note ,documented as a scribe. Any additional findings or plans will be noted.
[2017-10-24 03:44] LABS: INR 1.1 (<1.2); Partial Thromboplastin Time 44.5 sec (22.0-30.0); Prothrombin Time 10.8 sec (9.0-12.0)
[2017-10-24 03:47] LABS: ALT 43 U/L (21-72); AST 28 U/L (17-59); Albumin 3.8 g/dL (3.5-5.0); Alkaline Phosphatase 51 U/L (38-126); Anion Gap 11 mmol/L; Blood Urea Nitrogen 12 mg/dL (9-20); Calcium 9.7 mg/dL (8.4-10.2); Carbon Dioxide 24 mmol/L (22-30); Chloride 108 mmol/L (98-107); Glucose 101 mg/dL (74-99); Potassium 3.9 mmol/L (3.5-5.1); Sodium 143 mmol/L (137-145); Total Bilirubin 0.4 mg/dL (0.2-1.3); Total Protein 6.6 g/dL (6.3-8.2)
[2017-10-24 03:54] LABS: HCT 46.3 % (39.0-53.0); HGB 16.1 gm/dL (13.0-17.5); MCH 30.9 pg (25.0-35.0); MCHC 34.7 g/dL (31.0-37.0); MCV 88.9 fL (80.0-100.0); Mean Platelet Volume 7.6; Platelet Count 215 k/uL (150-450); RBC 5.21 m/uL (4.30-5.90); RDW 13.5 % (11.5-15.5); WBC 8.5 k/uL (3.8-10.6)
[2017-10-24] MEDS ORDERED: ALBUMIN HUMAN 5% 500 ML in EMPTY BAG 1 BAG IVPB PRN ×6 (05:00)
[2017-10-24] MEDS ORDERED: NITROGLYCERIN-D5W PMX 50 MG in DEXTROSE/WATER 1 250ML.BAG IV PRN (05:00)
[2017-10-24] MEDS ORDERED: DEXTROSE 5% IN WATER 1,000 ML with POTASSIUM CHLORIDE 110 MEQ, MAGNESIUM SULFATE 16 MEQ... IV PRN ×5 (05:00)
[2017-10-24] MEDS ORDERED: PHENYLEPHRINE-0.9% NACL SYG 1 MG/10 ML SYRINGE IV PRN ×4 (05:00)
[2017-10-24] MEDS ORDERED: DEXTROSE 5% IN WATER 1,000 ML with POTASSIUM CHLORIDE 25 MEQ, SODIUM CHLORIDE 2.5MEQ/ML... IV PRN ×6 (05:00)
[2017-10-24] MEDS ORDERED: ASPIRIN 81 MG ONE (05:00)
[2017-10-24] MEDS ORDERED: CLEVIDIPINE BUTYRATE 25 MG in EMPTY BAG 1 BAG IV PRN (05:00)
[2017-10-24] MEDS ORDERED: PHENYLEPHRINE 40 MG in SODIUM CHLORIDE 0.9% 250 ML IV PRN (05:00)
[2017-10-24] MEDS ORDERED: AMINOCAPROIC ACID 5,000 MG in DEXTROSE 5% IN WATER 50 ML IV PRN ×4 (05:00)
[2017-10-24] MEDS ORDERED: ceFAZolin 1,000 MG in SODIUM CHLORIDE 0.9% IRRIGATIO 1,000 ML IRRIGATION PRN (05:00)
[2017-10-24] MEDS ORDERED: PROTAMINE SULFATE 10 MG/ML 25 ML VIAL IV PRN (05:00)
[2017-10-24] MEDS ORDERED: NOREPINEPHRIN 4 MG-0.9% NS PMX 4 MG/250 ML ML IV PRN (05:00)
[2017-10-24] MEDS ORDERED: HEPARIN SODIUM 1,000 UN/ML (10ML VL) IV PRN (05:00)
[2017-10-24] MEDS ORDERED: ceFAZolin 2 GM in SODIUM CHLORIDE 0.9% 30 ML IVPB PRN ×4 (05:00)
[2017-10-24] MEDS ORDERED: NITROGLYCERIN-D5W PMX 25 MG/250 ML BTL IV PRN (05:00)
[2017-10-24] MEDS ORDERED: PAPAVERINE 360 MG in SODIUM CHLORIDE 0.9% 90 ML IV PRN (05:00)
[2017-10-24] MEDS ORDERED: HEPARIN SODIUM,PORCINE 5,000 UNIT in SODIUM CHLORIDE 0.9% 500 ML IV PRN (05:00)
[2017-10-24] MEDS ORDERED: ATORVASTATIN 10 MG TAB ONE (05:00)
[2017-10-24] MEDS ORDERED: METOPROLOL TARTRATE 12.5 MG TAB PO ONE (05:00)
[2017-10-24] MEDS ORDERED: MANNITOL 25% 12.5 GM/50 ML VIAL IV PRN ×2 (05:00)
[2017-10-24] MEDS ORDERED: PROTAMINE SULFATE 250 MG in EMPTY BAG 1 BAG IV PRN (05:00)
[2017-10-24] MEDS ORDERED: POTASSIUM CHLORIDE ER 20 MEQ TAB.ER PO ONE (05:00)
[2017-10-24] MEDS ORDERED: TRANEXAMIC ACID 2,000 MG in SODIUM CHLORIDE 0.9% 180 ML IV PRN (05:00)
[2017-10-24] MEDS ORDERED: MAGNESIUM SULFATE SYG 4.06 MEQ/ML SYRINGE IV PRN (05:00)
[2017-10-24] MEDS ORDERED: SODIUM BICARB 8.4% 50 ML SYR (1 MEQ/ML) IV PRN (05:00)
[2017-10-24] MEDS ORDERED: ALBUMIN HUMAN 25% 50 ML in EMPTY BAG 1 BAG IVPB PRN (05:00)
[2017-10-24] MEDS ORDERED: CALCIUM CHLORIDE 100 MG/ML 10 ML SYRINGE IVP PRN (05:00)
[2017-10-24] MEDS ORDERED: AMINOCAPROIC ACID 250 MG/ML 20 ML VIAL IV PRN (05:00)
[2017-10-24] MEDS ORDERED: INSULIN REGULAR 100 UNIT in SODIUM CHLORIDE 0.9% 100 ML IV PRN (05:00)
[2017-10-24] MEDS ORDERED: ATORVASTATIN 10 MG TAB PO ONE (05:00)
[2017-10-24] MEDS ORDERED: CHLORHEXIDINE GLUCONATE 15 ML CUP MUCOUS MEM PRN (05:00)
[2017-10-24] MEDS ORDERED: ASPIRIN 81 MG PO ONE (05:00)
[2017-10-24] MEDS: ACETAMINOPHEN IV (For NPO) 1,000 MG in EMPTY BAG 1 BAG IVPB SCH ×4 (05:16→22:50)
[2017-10-24 05:36] LABS: Eosinophils # (M) 0.09 k/uL (0-0.7); Lymphocytes # (M) 3.23 k/uL (1.0-4.8); Monocytes # (M) 0.68 k/uL (0-1.0); Neutrophils # (M) 4.51 k/uL (1.3-7.7); Neutrophils % (M) 53 %; Nucleated Red Blood Cells 0 /100 WBC (0-0); Total Cells Counted 100
[2017-10-24 05:59] LABS: Magnesium 1.9 mg/dL (1.6-2.3)
--- NOTE | 2017-10-24 08:45 | PN ---
PROGRESS NOTE Mr. Page is a 47-year-old male who presented with a myocardial infarction and was found to have severe triple-vessel coronary artery disease. He is scheduled to undergo coronary artery bypass grafting today. He is doing well. He has vague discomfort that is mild. No dizziness. No palpitation. He denies any change in his breathing. Hemodynamically, he has been stable. He continues to be in sinus mechanism without difficulty. He is off his heparin this morning. Otherwise, he continued be on aspirin, Lipitor 80 mg daily, metoprolol tartrate 25 mg twice a day, and nitrate. PHYSICAL EXAMINATION: Blood pressure 107/60 with the heart rate in the 60s. LUNGS: Clear HEART: Regular rate and rhythm. S1, S2. No S3. No rub. ABDOMEN: Soft, nontender. EXTREMITIES: No edema. IMPRESSION: 1. Severe triple-vessel coronary artery disease. 2. Status post myocardial infarction. 3. Hypertension. 4. History of smoking. RECOMMENDATION: Patient will proceed with coronary artery bypass graft today and depending on his progress further recommendations with be made. MMODL / IJN: [id number] /
[2017-10-24] MEDS ORDERED: MIDAZOLAM 2 MG/2 ML VIAL ONE (09:05)
[2017-10-24] MEDS ORDERED: fentaNYL (PF) 50 MCG/ML 50 ML VIAL ONE (09:05)
[2017-10-24] MEDS ORDERED: SODIUM CHLORIDE 0.9% 250 ML BAG ONE (09:05)
[2017-10-24] MEDS ORDERED: fentaNYL (PF) 50 MCG/ML 2 ML AMP ONE (09:05)
[2017-10-24] MEDS ORDERED: LABETALOL 5 MG/ML VIAL MDV ONE (09:05)
[2017-10-24] MEDS ORDERED: CALCIUM CHLORIDE 100 MG/ML 10 ML SYRINGE ONE (09:05)
[2017-10-24] MEDS ORDERED: TRANEXAMIC ACID 1,000 MG/10 ML VIAL ONE (09:05)
[2017-10-24] MEDS ORDERED: LIDOCAINE 2% SYG (PF) 100 MG/5 ML ONE (09:05)
[2017-10-24] MEDS ORDERED: SODIUM CHLORIDE 0.9% IRRIG 1,000 ML BTL IRRIGATION ONE (09:05)
[2017-10-24] MEDS ORDERED: ELECTROLYTE-R (PH 7.4) 1,000 ML IV.SOLN IV ONE (09:05)
[2017-10-24] MEDS ORDERED: METOPROLOL TARTRATE 5 MG/5 ML VIAL IVP ONE (09:05)
[2017-10-24] MEDS ORDERED: PROTAMINE SULFATE 10 MG/ML 25 ML VIAL IV ONE (09:05)
[2017-10-24] MEDS ORDERED: SUFentanil 50 MCG/ML 2ML AMP ONE (09:05)
[2017-10-24] MEDS ORDERED: ALBUMIN HUMAN 5% 500 ML VIAL IVPB ONE (09:05)
[2017-10-24] MEDS ORDERED: SODIUM CHLORIDE 0.9% 100 ML BAG ONE (09:05)
[2017-10-24] MEDS ORDERED: MAGNESIUM SULFATE 4 MEQ/ML 2 ML VIAL ONE (09:05)
[2017-10-24] MEDS ORDERED: PROPOFOL 10 MG/ML 20 ML VIAL IV ONE (09:05)
[2017-10-24] MEDS ORDERED: ceFAZolin 1,000 MG VIAL ONE (09:05)
[2017-10-24] MEDS ORDERED: SODIUM CHLORIDE 0.9% (PF) 10 ML VIAL ONE (09:05)
[2017-10-24] MEDS ORDERED: KETOROLAC 30 MG/ML 1 ML VIAL ONE (09:05)
[2017-10-24] MEDS ORDERED: VECURONIUM 10 MG VIAL IV ONE (09:05)
--- NOTE | 2017-10-24 09:15 | P.ARTDOP ---
Arterial Doppler LOWER EXTREMITY ARTERIAL DOPPLER: DATE OF SERVICE: 10/21/2017 Reason for study: Pre-CABG Doppler waveforms: Multiphasic bilaterally throughout. Pulse volume recording: []. Pressure gradients: None. Ankle-brachial indices: Greater than 1 bilaterally. Toe pressures: [] on the right, [] on the left Impression: Normal study.
--- NOTE | 2017-10-24 09:16 | P.VSCSTY ---
Greater Saphenous Vein Mapping This is bilateral lower extremity greater saphenous vein mapping. Date of service 10/21/2017 Vein quality and ultrasound appearance no wall changes or intraluminal thrombus. Vein size groin right 7.6 x 5.9 groin left 6.1 x 7.2 High thigh right 7.9 x 6.6 high thigh left 5.4 x 5.3 Mid thigh right 5.3 x 4.9 mid thigh left 5.0 x 4.2 Above-knee right 4.6 x 4.6 above- knee left 4.1 x 3.7 Below knee right 4.7 x 4.1 below-knee left 3.7 x 3.4 Mid calf right 4.4 x 3.9 mid calf left 3.9 x 3.4 Ankle right 3.7 x 3.5 ankle left [] Impression usable bilateral greater saphenous vein..
[2017-10-24 09:39] LABS: ABG Base Excess -1.5 mmol/L; ABG HCO3 22 mmol/L (21-25); ABG Oxygen Saturation 99.7 % (94-97); ABG PCO2 35 mmHg (35-45); ABG PH 7.42 (7.35-7.45); ABG PO2 216 mmHg (83-108); ABG Potassium Whole Blood 3.9 mmol/L (3.4-4.5); ABG Sodium Whole Blood 141 mmol/L (135-146); ABG TCO2 24 mmol/L (19-24)
[2017-10-24] MEDS ORDERED: SODIUM CHLORIDE 0.9% 500 ML with HEPARIN SODIUM,PORCINE 5,000 UNIT IV ONE ×2 (09:56)
[2017-10-24] MEDS ORDERED: PAPAVERINE 360 MG in SODIUM CHLORIDE 0.9% 90 ML IV ONE (09:57)
[2017-10-24 10:44] LABS: ABG Base Excess -2.8 mmol/L; ABG HCO3 23 mmol/L (21-25); ABG Oxygen Saturation 99.5 % (94-97); ABG PCO2 42 mmHg (35-45); ABG PH 7.34 (7.35-7.45); ABG PO2 182 mmHg (83-108); ABG Potassium Whole Blood 4.1 mmol/L (3.4-4.5); ABG Sodium Whole Blood 141 mmol/L (135-146); ABG TCO2 24 mmol/L (19-24)
[2017-10-24 11:16] LABS: ABG Base Excess -2.6 mmol/L; ABG HCO3 22 mmol/L (21-25); ABG PCO2 35 mmHg (35-45); ABG PO2 349 mmHg (83-108); ABG Potassium Whole Blood 5.6 mmol/L (3.4-4.5); ABG Sodium Whole Blood 134 mmol/L (135-146); ABG TCO2 23 mmol/L (19-24)
[2017-10-24 11:48] LABS: ABG Base Excess -2.7 mmol/L; ABG HCO3 23 mmol/L (21-25); ABG Oxygen Saturation 99.2 % (94-97); ABG PCO2 44 mmHg (35-45); ABG PH 7.33 (7.35-7.45); ABG PO2 146 mmHg (83-108); ABG Potassium Whole Blood 5.3 mmol/L (3.4-4.5); ABG Sodium Whole Blood 135 mmol/L (135-146); ABG TCO2 25 mmol/L (19-24)
[2017-10-24 12:16] LABS: ABG Base Excess -3.5 mmol/L; ABG HCO3 23 mmol/L (21-25); ABG Oxygen Saturation 99.9 % (94-97); ABG PCO2 45 mmHg (35-45); ABG PH 7.31 (7.35-7.45); ABG PO2 292 mmHg (83-108); ABG Potassium Whole Blood 5.1 mmol/L (3.4-4.5); ABG Sodium Whole Blood 137 mmol/L (135-146); ABG TCO2 24 mmol/L (19-24)
[2017-10-24 12:59] LABS: ABG Base Excess -1.6 mmol/L; ABG HCO3 25 mmol/L (21-25); ABG Oxygen Saturation 97.1 % (94-97); ABG PCO2 50 mmHg (35-45); ABG PH 7.31 (7.35-7.45); ABG PO2 93 mmHg (83-108); ABG Potassium Whole Blood 4.1 mmol/L (3.4-4.5); ABG Sodium Whole Blood 141 mmol/L (135-146); ABG TCO2 27 mmol/L (19-24)
[2017-10-24] MEDS: LACTATED RINGERS 1,000 ML IV SCH (14:00)
[2017-10-24] MEDS: CLEVIDIPINE BUTYRATE 25 MG in EMPTY BAG 1 BAG IV SCH (14:00)
[2017-10-24 14:02] LABS: Glucose,Whole Blood 116 mg/dL (75-99)
[2017-10-24] MEDS ORDERED: PROPOFOL 1,000 MG in EMPTY BAG 1 BAG IV SCH (14:09)
[2017-10-24] MEDS ORDERED: METOCLOPRAMIDE 5 MG/ML 2 ML VIAL IVP PRN (14:09)
[2017-10-24] MEDS ORDERED: Magnesium Replacement Protocol 1 EACH MISC MISCELLANE PRN (14:09)
[2017-10-24] MEDS ORDERED: CALCIUM GLUCONATE 2,000 MG in SODIUM CHLORIDE 0.9% 100 ML IVPB PRN (14:09)
[2017-10-24] MEDS ORDERED: Phosphorus Replacement Protoco 1 EACH MISC MISCELLANE PRN (14:09)
[2017-10-24] MEDS ORDERED: ALBUMIN HUMAN 5% 250 ML in EMPTY BAG 1 BAG IVPB PRN (14:09)
[2017-10-24] MEDS ORDERED: Potassium Replacement Protocol 1 EACH MISC MISCELLANE PRN (14:09)
[2017-10-24] MEDS ORDERED: ONDANSETRON 4 MG/2 ML VIAL IVP PRN (14:09)
[2017-10-24] MEDS ORDERED: BENZOCAINE/MENTHOL LOZENG 1 EACH LOZENGE MUCOUS MEM PRN (14:09)
[2017-10-24] MEDS ORDERED: NITROGLYCERIN-D5W PMX 50 MG in DEXTROSE/WATER 1 250ML.BAG IV SCH (14:09)
--- NOTE | 2017-10-24 14:12 | OP ---
OPERATIVE REPORT DATE OF THE OPERATION: 10/24/2017 ATTENDING SURGEON: Dr. Mart Bedoya ASSIST: 1. ANGE Tran. 2. ANGE Harris. 3. ANGE Shirley. PROCEDURES: Coronary artery bypass grafting x3 with left internal mammary to left anterior descending artery, reverse saphenous vein graft off the aorta to the posterior descending artery and to the circumflex artery and left internal mammary artery to left anterior descending artery with endoscopic vein harvesting and intraoperative LUKE. ANESTHESIA: General. BLOOD LOSS: 500 mL. SUMMARY: Patient was taken the operating suite and placed in supine position. Administration of a general endotracheal anesthetic. Placement of a A[place]on-Santos catheter, arterial line, adequate IV access and a Gooden catheter, patient was carefully prepped and draped in normal sterile fashion using Betadine paint and sterile towels. Saphenous vein was harvested from the lower extremity with endovascular vein harvesting technique. All branches were doubly tied and divided and the incisions closed in 2 layers. A midline incision in chest made, sternum divided. Pericardium was opened. Heart size was normal caliber, ureter was soft. Left pleural space and upper left internal mammary artery harvested as a pedicle from the xiphoid to the left subclavian vein. It was of 2 mm, quality was excellent flow. Patient heparinized . The inferior vena cava were cannulated. Antegrade cardioplegic catheters was positioned in the ascending aorta and the coronary sinus. The patient was placed on bypass, cross-clamp placed. The heart arrested with 1 L of antegrade followed by 500 mL of retrograde cardioplegia. Retrograde cardioplegia was delivered 3 to 500 mL at the end of each 20 minute interval. Distal anastomoses were constructed. Reverse saphenous vein graft and anastomosis to the posterior descending artery constructed using a 7-0 Prolene running suture, caliber of this vessel was 1.75 to 2.0 mm. Next, saphenous vein anastomosis to the circumflex artery was constructed in a similar fashion. This was a 1.75 mm vessel. Next, in opening the proximal mid left anterior descending artery was diffusely diseased and there was no lumen. Therefore, it was then over sewed. It was then re- attempted to open the LAD in the proximal portion of the distal third and opening the LAD here, a 1.5 probe was passed at best. Left internal mammary artery was then beveled, distal anastomosis to the left anterior to the mid portion of the distal part of the LAD using 8-0 Prolene running suture. Caliber of this vessel is 1.5 mm at best and diffusely diseased. Under single cross-clamp, two proximal anastomoses were constructed on the ascending aorta using 6-0 Prolene running suture. Patient was placed head down. The aortic root was vented, warm blood retrograde cardioplegia was run. Cross-clamp was removed. Once beating normal sinus rhythm, patient was brought off bypass. The bypass passed uneventfully with good hemodynamics. Protamine delivered, patient decannulated. Atrial ventricular pacing wires were placed. Mediastinal left pleural chest tubes were placed. At this point, the sternum was closed with seven #6 sternal wires. Skin, subcutaneous tissue, fascia closed in 3 layers. No complications. Patient tolerated the procedure well, was taken to the cardiovascular intensive care unit in stable condition. MMODL / IJN: [id number] /
[2017-10-24] MEDS ORDERED: INSULIN REGULAR 100 UNIT in SODIUM CHLORIDE 0.9% 100 ML IV SCH (14:15)
[2017-10-24 14:16] LABS: ABG Base Excess 0.5 mmol/L; ABG HCO3 26 mmol/L (21-25); ABG Oxygen Saturation 96.7 % (94-97); ABG PCO2 50 mmHg (35-45); ABG PH 7.33 (7.35-7.45); ABG PO2 87 mmHg (83-108); ABG TCO2 28 mmol/L (19-24)
[2017-10-24 14:19] LABS: HCT 38.5 % (39.0-53.0); HGB 13.3 gm/dL (13.0-17.5); MCH 30.6 pg (25.0-35.0); MCHC 34.5 g/dL (31.0-37.0); MCV 88.5 fL (80.0-100.0); Mean Platelet Volume 7.5; Platelet Count 177 k/uL (150-450); RBC 4.34 m/uL (4.30-5.90); RDW 13.7 % (11.5-15.5); WBC 12.3 k/uL (3.8-10.6)
[2017-10-24 14:28] LABS: Ionized Calcium 4.8 mg/dL (4.5-5.3)
[2017-10-24 14:32] LABS: INR 1.3 (<1.2); Partial Thromboplastin Time 26.9 sec (22.0-30.0); Prothrombin Time 12.3 sec (9.0-12.0)
--- NOTE | 2017-10-24 14:32 | XR ---
"EXAMINATION TYPE: XR chest 1V portable DATE OF EXAM: 10/24/2017 COMPARISON: Prior chest x-ray 10/21/2017 HISTORY: Postop cardiac surgery TECHNIQUE: Single frontal view of the chest is obtained. FINDINGS: Patient is post median sternotomy. Endotracheal tube and NG tube are present, distal tip o f the NG tube is at the level of the gastroesophageal junction. Median sternal drain overlying the mi dline. Right jugular central venous and coaxial [place]-Santos catheter, left chest tube are present. Ther e is no sizable pneumothorax or pleural effusion. Cardiac mediastinal silhouette, pulmonary vasculari ty and melvin not significantly changed accounting for differences in technique. Patient is rotated. Mackenzie ng volumes are low. Patchy central density within the lungs likely is indicative of atelectasis. Post op changes noted to the cervical spine. Pacing leads are present. IMPRESSION: NG tube tip present at the level of the gastroesophageal junction. Expiratory rotated exa m. Atelectasis. Follow-up recommended. A Yellow level critical message alert has been initiated for Phil Wilson MD via the [employer] | Critical Results System on 10/24/2017 2:29 PM. This message alert has been sent to Phil Wilson MD via the preferences provided by the clinician for the receipt of Radiology Critical Findi ngs. Message ID [id number]."
[2017-10-24 14:35] LABS: ALT 42 U/L (21-72); AST 42 U/L (17-59); Albumin 3.9 g/dL (3.5-5.0); Alkaline Phosphatase 32 U/L (38-126); Anion Gap 13 mmol/L; Blood Urea Nitrogen 7 mg/dL (9-20); Calcium 8.3 mg/dL (8.4-10.2); Carbon Dioxide 26 mmol/L (22-30); Chloride 106 mmol/L (98-107); Glucose 120 mg/dL (74-99); Magnesium 2.3 mg/dL (1.6-2.3); Sodium 145 mmol/L (137-145); Total Bilirubin 0.6 mg/dL (0.2-1.3); Total Protein 5.9 g/dL (6.3-8.2)
[2017-10-24] MEDS ORDERED: hydrALAZINE HCL 20 MG/ML 1 ML VIAL ONE (14:37)
[2017-10-24 14:43] LABS: Lymphocytes # (M) 2.09 k/uL (1.0-4.8); Monocytes # (M) 0.49 k/uL (0-1.0); Neutrophils # (M) 9.72 k/uL (1.3-7.7); Neutrophils % (M) 79 %; Nucleated Red Blood Cells 0 /100 WBC (0-0); Total Cells Counted 100
[2017-10-24] MEDS: SODIUM CHLORIDE 0.9% 1,000 ML IV SCH (14:56)
[2017-10-24] MEDS: IPRATROPIUM-ALBUTEROL 3 ML NEB INHALATION SCH ×3 (15:05→23:05)
[2017-10-24 15:06] LABS: Glucose,Whole Blood 127 mg/dL (75-99)
[2017-10-24] MEDS: MORPHINE SULFATE 4MG/4ML SYRG IVP PRN (15:39)
[2017-10-24] MEDS: ceFAZolin IN SWFI 2 GM/20 ML SYRINGE IVP SCH (16:12)
[2017-10-24 16:13] LABS: Glucose,Whole Blood 122 mg/dL (75-99)
[2017-10-24] MEDS: DEXMEDETOMIDINE 400 MCG in SODIUM CHLORIDE 0.9% 100 ML IV SCH ×2 (16:20→19:41)
[2017-10-24] MEDS ORDERED: PROPOFOL 1,000 MG in EMPTY BAG 1 BAG IV PRN (17:05)
[2017-10-24 17:16] LABS: Glucose,Whole Blood 117 mg/dL (75-99)
[2017-10-24 17:30] LABS: HCT 40.7 % (39.0-53.0); HGB 14.2 gm/dL (13.0-17.5); MCHC 34.9 g/dL (31.0-37.0); MCV 88.9 fL (80.0-100.0); Mean Platelet Volume 7.8; Platelet Count 187 k/uL (150-450); RBC 4.58 m/uL (4.30-5.90); RDW 13.8 % (11.5-15.5); WBC 13.7 k/uL (3.8-10.6)
--- NOTE | 2017-10-24 17:39 | P.PN ---
Subjective Progress Note Date: 10/24/17 Principal diagnosis: Coronary artery disease. This is a 47-year-old gentleman who was found to have significant coronary artery disease including 6070% next tensive stenosis of the left main involving the ostium, totally occluded midportion of the LAD with collateral circulation from the RCA 1, 7080% stenosis of the distal RCA before the bifurcation. Preserved left ventricular systolic function with ejection fraction 50-55%. He had undergone coronary artery bypass grafting today is utilizing a NUÑEZ to the LAD, reverse saphenous vein grafts to the posterior descending artery and to the circumflex artery. He is seen postoperatively in the intensive care unit. He remains intubated and on the mechanical ventilator with initial settings of SIMV of 12, tidal volume 500, FiO2 100% and a PEEP of 10. Blood gases revealed a pO2 of 87, pCO2 50, pH 7.33. Chest x-ray reveals atelectasis and low lung volumes. Chest tubes remain in place. Nasogastric tube in place. Endotracheal tube position is noted. He is currently sedated on propofol 75 mcg /kg/m. Clevidipine at 8 mg per hour. Lactated Ringer's at 50 MLS per hour. Current blood pressure 106/57. Pulmonary artery pressure 25/12 with a CVP of 8. Cardiac index 3.1. Lab results reveal a WBC of 12.3. Hemoglobin 13.3. Platelet count 177. INR 1.3. Creatinine 0.65. Objective - Vital Signs Vital signs: Vital Signs Temp 97.9 F 10/24/17 04:00 Pulse 74 10/24/17 17:00 Resp 12 10/24/17 17:00 BP 107/65 10/24/17 06:00 Pulse Ox 100 10/24/17 17:00 Intake & Output 10/23/17 10/24/17 10/24/17 18:59 06:59 18:59 Intake Total 1623.33 1825.07 327.161 Output Total 2250 950 4670 Balance -626.67 875.07 -4342.839 Intake: IV 925 1000 325 ACETAMINOPHEN IV (For NPO 175 100 ) 1,000 mg In Empty Bag 1 bag @ 400 mls/hr IVPB Q6H [facility] Rx#:[id number] Cardiac Output (0.9 40 Sodium Chloride) Lactated Ringers 1,000 ml 150 @ 50 mls/hr IV .Q20H [facility] Rx#:[id number] Pressure Bag (0.9 Sodium 27 Chloride) Sodium Chloride 0.9% 1, 750 900 75 000 ml @ 75 mls/hr IV . [id number] [facility] Rx#:[id number] Intake, IV Titration 498.33 315.07 2.161 Amount Clevidipine Butyrate 25 1.134 mg In Empty Bag 1 bag @ 1 MG/HR 2 mls/hr IV .Q24H [facility] Rx#:[id number] Heparin Sod,Pork in 0.45% 498.33 315.07 NaCl 25,000 unit In 0.45 % NaCl 1 500ml.bag @ 10. 64 UNITS/KG/HR 20 mls/hr IV .Q24H [facility] Rx#: [id number] Insulin Regular 100 unit 1.027 In Sodium Chloride 0.9% 100 ml @ Per Protocol IV .Q0M [facility] Rx#:[id number] Oral 200 510 Output: Chest Tube Drainage 460 Chest Tube Left Pleural/ 460 Mediastinal Urine 2250 950 3210 Estimated Blood Loss 1000 Other: Voiding Method Toilet Toilet Urinal Urinal # Voids 1 # Bowel Movements 1 ABP, PAP, CO, CI - Last Documented Arterial Blood Pressure 115/63 Pulmonary Artery Pressure 23/10 Cardiac Output 7.8 Cardiac Index 2.6 - Exam GENERAL EXAM: Intubated, sedated, in no apparent distress. HEAD: Normocephalic. EYES: Normal reaction of pupils, equal size. NOSE: Clear with pink turbinates. THROAT: Oral endotracheal tubing gastric tube secured in place. No erythema or exudates. NECK: No masses, no JVD. CHEST: No chest wall deformity. Sternal dressing dry and intact. Chest tubes in place. LUNGS: Equal air entry with scattered rhonchi.. CVS: S1 and S2 normal with no audible murmur, regular rhythm. ABDOMEN: No hepatosplenomegaly, no guarding or rigidity. SPINE: No scoliosis or deformity SKIN: No rashes CENTRAL NERVOUS SYSTEM: Sedated. EXTREMITIES: There is trace peripheral edema. No clubbing, no cyanosis. Peripheral pulses are intact. - Labs CBC & Chem 7: 10/24/17 13:55 10/24/17 13:55 Labs: Abnormal Lab Results - Last 24 Hours (Table) 10/23/17 10/24/17 10/24/17 Range/Units 04:30 03:00 03:00 WBC (3.8-10.6) k/uL Hct (39.0-53.0) % Neutrophils # (Manual) (1.3-7.7) k/uL PT (9.0-12.0) sec INR (<1.2) APTT 44.5 H (22.0-30.0) sec ABG pH (7.35-7.45) ABG pCO2 (35-45) mmHg ABG pO2 (83-108) mmHg ABG HCO3 (21-25) mmol/L ABG Total CO2 (19-24) mmol/L ABG O2 Saturation (94-97) % ABG Hematocrit (34.0-46.0) % ABG Sodium (135-146) mmol/L ABG Potassium (3.4-4.5) mmol/L ABG Ionized Calcium (4.5-5.3) mg/dL ABG Glucose (75-99) mg/dL Hemoglobin (13.0-17.5) gm/dL Chloride 108 H (98-107) mmol/L BUN (9-20) mg/dL Creatinine (0.66-1.25) mg/dL Glucose 101 H (74-99) mg/dL POC Glucose (mg/dL) (75-99) mg/dL Calcium (8.4-10.2) mg/dL Alkaline Phosphatase (38-126) U/L Total Protein (6.3-8.2) g/dL Arterial Blood Potassium (3.4-4.5) mmol/L Arterial Blood Glucose (75-99) mg/dL Crossmatch See Detail 10/24/17 10/24/17 10/24/17 Range/Units 09:39 10:44 11:16 WBC (3.8-10.6) k/uL Hct (39.0-53.0) % Neutrophils # (Manual) (1.3-7.7) k/uL PT (9.0-12.0) sec INR (<1.2) APTT (22.0-30.0) sec ABG pH 7.34 L (7.35-7.45) ABG pCO2 (35-45) mmHg ABG pO2 216 H 182 H 349 H (83-108) mmHg ABG HCO3 (21-25) mmol/L ABG Total CO2 (19-24) mmol/L ABG O2 Saturation 99.7 H 99.5 H 100.0 H (94-97) % ABG Hematocrit 48 H 33 L (34.0-46.0) % ABG Sodium 134 L (135-146) mmol/L ABG Potassium 5.6 H (3.4-4.5) mmol/L ABG Ionized Calcium 4.0 L (4.5-5.3) mg/dL ABG Glucose 102 H 118 H 213 H (75-99) mg/dL Hemoglobin 10.8 L (13.0-17.5) gm/dL Chloride (98-107) mmol/L BUN (9-20) mg/dL Creatinine (0.66-1.25) mg/dL Glucose (74-99) mg/dL POC Glucose (mg/dL) (75-99) mg/dL Calcium (8.4-10.2) mg/dL Alkaline Phosphatase (38-126) U/L Total Protein (6.3-8.2) g/dL Arterial Blood Potassium 5.6 H (3.4-4.5) mmol/L Arterial Blood Glucose 102 H 118 H 213 H (75-99) mg/dL Crossmatch 10/24/17 10/24/17 10/24/17 Range/Units 11:47 12:16 12:59 WBC (3.8-10.6) k/uL Hct (39.0-53.0) % Neutrophils # (Manual) (1.3-7.7) k/uL PT (9.0-12.0) sec INR (<1.2) APTT (22.0-30.0) sec ABG pH 7.33 L 7.31 L 7.31 L (7.35-7.45) ABG pCO2 50 H (35-45) mmHg ABG pO2 146 H 292 H (83-108) mmHg ABG HCO3 (21-25) mmol/L ABG Total CO2 25 H 27 H (19-24) mmol/L ABG O2 Saturation 99.2 H 99.9 H 97.1 H (94-97) % ABG Hematocrit (34.0-46.0) % ABG Sodium (135-146) mmol/L ABG Potassium 5.3 H 5.1 H (3.4-4.5) mmol/L ABG Ionized Calcium 4.3 L 4.3 L 4.1 L (4.5-5.3) mg/dL ABG Glucose 203 H 193 H 156 H (75-99) mg/dL Hemoglobin 11.1 L 11.0 L 11.6 L (13.0-17.5) gm/dL Chloride (98-107) mmol/L BUN (9-20) mg/dL Creatinine (0.66-1.25) mg/dL Glucose (74-99) mg/dL POC Glucose (mg/dL) (75-99) mg/dL Calcium (8.4-10.2) mg/dL Alkaline Phosphatase (38-126) U/L Total Protein (6.3-8.2) g/dL Arterial Blood Potassium 5.3 H 5.1 H (3.4-4.5) mmol/L Arterial Blood Glucose 203 H 193 H 156 H (75-99) mg/dL Crossmatch 10/24/17 10/24/17 10/24/17 Range/Units 13:55 13:55 13:55 WBC 12.3 H (3.8-10.6) k/uL Hct 38.5 L (39.0-53.0) % Neutrophils # (Manual) 9.72 H (1.3-7.7) k/uL PT 12.3 H (9.0-12.0) sec INR 1.3 H (<1.2) APTT (22.0-30.0) sec ABG pH (7.35-7.45) ABG pCO2 (35-45) mmHg ABG pO2 (83-108) mmHg ABG HCO3 (21-25) mmol/L ABG Total CO2 (19-24) mmol/L ABG O2 Saturation (94-97) % ABG Hematocrit (34.0-46.0) % ABG Sodium (135-146) mmol/L ABG Potassium (3.4-4.5) mmol/L ABG Ionized Calcium (4.5-5.3) mg/dL ABG Glucose (75-99) mg/dL Hemoglobin (13.0-17.5) gm/dL Chloride (98-107) mmol/L BUN 7 L (9-20) mg/dL Creatinine 0.65 L (0.66-1.25) mg/dL Glucose 120 H (74-99) mg/dL POC Glucose (mg/dL) (75-99) mg/dL Calcium 8.3 L (8.4-10.2) mg/dL Alkaline Phosphatase 32 L (38-126) U/L Total Protein 5.9 L (6.3-8.2) g/dL Arterial Blood Potassium (3.4-4.5) mmol/L Arterial Blood Glucose (75-99) mg/dL Crossmatch 10/24/17 10/24/17 10/24/17 Range/Units 14:00 14:03 15:02 WBC (3.8-10.6) k/uL Hct (39.0-53.0) % Neutrophils # (Manual) (1.3-7.7) k/uL PT (9.0-12.0) sec INR (<1.2) APTT (22.0-30.0) sec ABG pH 7.33 L (7.35-7.45) ABG pCO2 50 H (35-45) mmHg ABG pO2 (83-108) mmHg ABG HCO3 26 H (21-25) mmol/L ABG Total CO2 28 H (19-24) mmol/L ABG O2 Saturation (94-97) % ABG Hematocrit (34.0-46.0) % ABG Sodium (135-146) mmol/L ABG Potassium (3.4-4.5) mmol/L ABG Ionized Calcium (4.5-5.3) mg/dL ABG Glucose (75-99) mg/dL Hemoglobin (13.0-17.5) gm/dL Chloride (98-107) mmol/L BUN (9-20) mg/dL Creatinine (0.66-1.25) mg/dL Glucose (74-99) mg/dL POC Glucose (mg/dL) 116 H 127 H (75-99) mg/dL Calcium (8.4-10.2) mg/dL Alkaline Phosphatase (38-126) U/L Total Protein (6.3-8.2) g/dL Arterial Blood Potassium (3.4-4.5) mmol/L Arterial Blood Glucose (75-99) mg/dL Crossmatch 10/24/17 Range/Units 16:11 WBC (3.8-10.6) k/uL Hct (39.0-53.0) % Neutrophils # (Manual) (1.3-7.7) k/uL PT (9.0-12.0) sec INR (<1.2) APTT (22.0-30.0) sec ABG pH (7.35-7.45) ABG pCO2 (35-45) mmHg ABG pO2 (83-108) mmHg ABG HCO3 (21-25) mmol/L ABG Total CO2 (19-24) mmol/L ABG O2 Saturation (94-97) % ABG Hematocrit (34.0-46.0) % ABG Sodium (135-146) mmol/L ABG Potassium (3.4-4.5) mmol/L ABG Ionized Calcium (4.5-5.3) mg/dL ABG Glucose (75-99) mg/dL Hemoglobin (13.0-17.5) gm/dL Chloride (98-107) mmol/L BUN (9-20) mg/dL Creatinine (0.66-1.25) mg/dL Glucose (74-99) mg/dL POC Glucose (mg/dL) 122 H (75-99) mg/dL Calcium (8.4-10.2) mg/dL Alkaline Phosphatase (38-126) U/L Total Protein (6.3-8.2) g/dL Arterial Blood Potassium (3.4-4.5) mmol/L Arterial Blood Glucose (75-99) mg/dL Crossmatch Assessment and Plan Assessment: Impression: #1 Severe triple-vessel coronary artery disease, status post coronary artery bypass grafting utilizing a NUÑEZ to the LAD, reverse saphenous vein grafts to the PDA and circumflex postoperative day #0. #2 Non-ST segment elevation myocardial infarction. #3 Previous history of heavy tobacco dependence, baseline FEV1 96% of predicted. #4 History of prescription drug abuse, currently on Suboxone. #5 Hyperlipidemia. Plan: The patient was seen and evaluated by Dr. Hanna. His chest x-ray and labs are reviewed. He did adjust the ventilator to assist control mode with a rate of 12, increase tidal volume to 600, FiO2 of 100% and plans to titrate down by 10%. Continue PEEP of 10. Continue to follow early extubation protocol. The patient will be given Precedex drip currently at 0.47 mcg/kg/h and weaned off the propofol. He did get 4 mg of morphine. Continue bronchodilators. Continue cefazolin. We'll continue to follow and make further recommendations based on his clinical status. I, the cosigning physician, performed a history & physical examination of the patient. Lungs sounds with few scattered rhonchi. Maintaining good O2 saturations in the 90s on 100% FiO2 on mechanical ventilator. I discussed the assessment and plan of care with my nurse practitioner, Kala Valero. I attest to the above note as dictated by her. Time with Patient: Greater than 30
[2017-10-24 18:03] LABS: Glucose,Whole Blood 125 mg/dL (75-99)
[2017-10-24] MEDS: KETOROLAC 30 MG/ML 1 ML VIAL IVP SCH ×2 (18:12→22:51)
[2017-10-24 18:48] LABS: Band Neutrophils % 8 %; Lymphocytes # (M) 1.51 k/uL (1.0-4.8); Monocytes # (M) 0.27 k/uL (0-1.0); Myelocytes # (M) 0.27 k/uL (0); Myelocytes % 2 %; Neutrophils % (M) 77 %; Nucleated Red Blood Cells 0 /100 WBC (0-0); Total Cells Counted 100; Toxic Granulation Present
[2017-10-24 19:11] LABS: Glucose,Whole Blood 119 mg/dL (75-99)
[2017-10-24 20:14] LABS: Glucose,Whole Blood 125 mg/dL (75-99)
[2017-10-24 20:29] LABS: HCT 41.4 % (39.0-53.0); HGB 13.9 gm/dL (13.0-17.5); MCH 29.8 pg (25.0-35.0); MCHC 33.6 g/dL (31.0-37.0); MCV 88.8 fL (80.0-100.0); Platelet Count 178 k/uL (150-450); RBC 4.67 m/uL (4.30-5.90); RDW 13.9 % (11.5-15.5); WBC 14.1 k/uL (3.8-10.6)
[2017-10-24 20:55] LABS: Band Neutrophils % 9 %; Lymphocytes # (M) 1.41 k/uL (1.0-4.8); Monocytes # (M) 0.71 k/uL (0-1.0); Neutrophils % (M) 76 %; Nucleated Red Blood Cells 0 /100 WBC (0-0); Total Cells Counted 100
[2017-10-24 21:04] LABS: Glucose,Whole Blood 119 mg/dL (75-99)
[2017-10-24 22:14] LABS: Glucose,Whole Blood 127 mg/dL (75-99)
[2017-10-24] MEDS: HEPARIN SODIUM,PORCINE 5,000 UNIT/ML 1 ML VIAL SQ SCH (22:53)
--- NOTE | 2017-10-24 22:53 | PN ---
PROGRESS NOTE DATE OF SERVICE: 10/24/2017 INTERIM HISTORY: This 47-year-old gentleman who was admitted with coronary artery disease, underwent CAD, CABG. The patient is currently intubated and mechanically ventilated in ICU. The patient is on insulin drip. EXAM: Pulse is 80, blood pressure is 110/70, respiration 20, temperature normal, pulse ox 97% on mechanical ventilation with 10 of PEEP. HEENT: Conjunctivae normal. Oral mucosa moist. CARDIOVASCULAR: S1, S2 normal. RESPIRATORY: Clear to auscultation. ABDOMEN: Soft. LABS: WBC 14.1. ASSESSMENT: 1. Acute non ST-segment elevation myocardial infarct, status post multivessel coronary disease status post coronary artery disease, coronary artery bypass graft. 2. Symptomatic bradycardia. 3. Hyperlipidemia. 4. Excess shortness of breath. 5. History of nicotine dependence. 6. History of substance abuse on Suboxone. RECOMMENDATION AND DISCUSSION: Recommend to continue current medial management and symptomatic treatment. Otherwise, at this time, will monitor the patient closely. Continue with insulin drip. Mechanical ventilation per Pulmonary. Will closely follow with Cardiovascular Surgery. Further recommendations to follow. MMODL / IJN: [id number] /
[2017-10-24 23:20] LABS: Glucose,Whole Blood 116 mg/dL (75-99)
[2017-10-25 00:07] LABS: Glucose,Whole Blood 119 mg/dL (75-99)
[2017-10-25] MEDS: ceFAZolin IN SWFI 2 GM/20 ML SYRINGE IVP SCH ×2 (00:07→07:29)
[2017-10-25 01:05] LABS: Glucose,Whole Blood 116 mg/dL (75-99)
[2017-10-25 02:03] LABS: Glucose,Whole Blood 108 mg/dL (75-99)
[2017-10-25 02:55] LABS: ABG Base Excess -0.6 mmol/L; ABG HCO3 24 mmol/L (21-25); ABG Oxygen Saturation 97.9 % (94-97); ABG PCO2 35 mmHg (35-45); ABG PH 7.44 (7.35-7.45); ABG PO2 89 mmHg (83-108); ABG TCO2 25 mmol/L (19-24)
[2017-10-25] MEDS: IPRATROPIUM-ALBUTEROL 3 ML NEB INHALATION SCH ×5 (03:06→20:01)
[2017-10-25] MEDS: CLEVIDIPINE BUTYRATE 25 MG in EMPTY BAG 1 BAG IV SCH (03:10)
[2017-10-25 03:19] LABS: Glucose,Whole Blood 114 mg/dL (75-99)
[2017-10-25 04:15] LABS: Glucose,Whole Blood 117 mg/dL (75-99)
[2017-10-25] MEDS: MORPHINE SULFATE 4MG/4ML SYRG IVP PRN (04:29)
[2017-10-25 04:33] LABS: HGB 13.7 gm/dL (13.0-17.5); INR 1.2 (<1.2); MCH 30.4 pg (25.0-35.0); MCHC 34.2 g/dL (31.0-37.0); MCV 88.9 fL (80.0-100.0); Partial Thromboplastin Time 24.2 sec (22.0-30.0); Platelet Count 170 k/uL (150-450); Prothrombin Time 11.3 sec (9.0-12.0); RBC 4.49 m/uL (4.30-5.90); WBC 11.1 k/uL (3.8-10.6)
[2017-10-25 04:39] LABS: ALT 40 U/L (21-72); AST 68 U/L (17-59); Albumin 4.1 g/dL (3.5-5.0); Alkaline Phosphatase 40 U/L (38-126); Anion Gap 13 mmol/L; Blood Urea Nitrogen 9 mg/dL (9-20); Calcium 9.3 mg/dL (8.4-10.2); Carbon Dioxide 23 mmol/L (22-30); Chloride 106 mmol/L (98-107); Glucose 117 mg/dL (74-99); Potassium 3.9 mmol/L (3.5-5.1); Sodium 142 mmol/L (137-145); Total Bilirubin 0.7 mg/dL (0.2-1.3)
[2017-10-25] MEDS: KETOROLAC 30 MG/ML 1 ML VIAL IVP SCH ×4 (05:21→23:26)
[2017-10-25] MEDS: ACETAMINOPHEN IV (For NPO) 1,000 MG in EMPTY BAG 1 BAG IVPB SCH ×3 (05:22→17:38)
[2017-10-25 05:24] LABS: Lymphocytes # (M) 2.22 k/uL (1.0-4.8); Monocytes # (M) 0.11 k/uL (0-1.0); Neutrophils # (M) 8.77 k/uL (1.3-7.7); Neutrophils % (M) 79 %; Nucleated Red Blood Cells 0 /100 WBC (0-0); Total Cells Counted 100
[2017-10-25] MEDS ORDERED: POTASSIUM BICARBONATE/CIT AC 20 MEQ TABLET.EFF NG-TUBE SCH (06:00)
[2017-10-25 06:09] LABS: Glucose,Whole Blood 105 mg/dL (75-99)
[2017-10-25] MEDS: POTASSIUM CHLORIDE 10 MEQ in WATER FOR INJECTION 1 100ML.BAG IVPB SCH ×2 (07:05→07:29)
[2017-10-25] MEDS: HEPARIN SODIUM,PORCINE 5,000 UNIT/ML 1 ML VIAL SQ SCH ×3 (07:29→23:26)
[2017-10-25] MEDS: METOPROLOL TARTRATE 12.5 MG TAB PO SCH ×2 (08:04→20:57)
[2017-10-25] MEDS: ASPIRIN 325 MG TAB PO SCH (08:04)
[2017-10-25] MEDS: ATORVASTATIN 40 MG TAB PO SCH (08:04)
[2017-10-25] MEDS: CLOPIDOGREL 75 MG TAB PO SCH (08:04)
[2017-10-25 08:05] LABS: Glucose,Whole Blood 108 mg/dL (75-99)
--- NOTE | 2017-10-25 08:16 | P.PN ---
Subjective Progress Note Date: 10/25/17 This is a 47-year-old gentleman who was found to have significant coronary artery disease including 6070% next tensive stenosis of the left main involving the ostium, totally occluded midportion of the LAD with collateral circulation from the RCA 1, 7080% stenosis of the distal RCA before the bifurcation. Preserved left ventricular systolic function with ejection fraction 50-55%. He had undergone coronary artery bypass grafting today is utilizing a NUÑEZ to the LAD, reverse saphenous vein grafts to the posterior descending artery and to the circumflex artery. He is seen postoperatively in the intensive care unit. He remains intubated and on the mechanical ventilator with initial settings of SIMV of 12, tidal volume 500, FiO2 100% and a PEEP of 10. Blood gases revealed a pO2 of 87, pCO2 50, pH 7.33. Chest x-ray reveals atelectasis and low lung volumes. Chest tubes remain in place. Nasogastric tube in place. Endotracheal tube position is noted. He is currently sedated on propofol 75 mcg /kg/m. Clevidipine at 8 mg per hour. Lactated Ringer's at 50 MLS per hour. Current blood pressure 106/57. Pulmonary artery pressure 25/12 with a CVP of 8. Cardiac index 3.1. Lab results reveal a WBC of 12.3. Hemoglobin 13.3. Platelet count 177. INR 1.3. Creatinine 0.65. On 10/25/2017 the patient is postop day #1 following on a artery bypass surgery. The patient underwent three-vessel bypass and today he is postop day # 1. Overnight he was extubated at around 3 AM this morning. He initially had some difficulties with his oxygenation. His oxidation gradually improved as the patient was weaned off the FiO2 and he was a PEEP of 10 and throughout the night were able to wean him down and subsequently was extubated. He required 100% nonrebreather postextubation and currently is on a Ventimask. Chest x-ray from this morning is showing some limited atelectatic changes in the right upper lobe. Chest tube is in a good location. The patient has a mediastinal pleural chest tube and total amount of output has been 160 mL over the past 8 hours and there is no evidence of any air leak. Chest x-ray showed no evidence of any pneumothorax. The patient has a cardiac output of 5.9 with an index of 2.9. His pulmonary artery pressures are 26/15. The patient was on Diprivan initially and subsequently got switched to Precedex which is running a low dose and this will be ultimately discontinued. He is having some pain issues for which is on a combination of Toradol and oxycodone. He is trying to use incentive spirometer. Is still somewhat drowsy yet is awake and is following commands and answering questions appropriately. Postop hemoglobin is at 13.7. Correlation profile is within normal. LFTs are slightly elevated. No other significant issues otherwise. He is on no pressors. Hemodynamically stable and producing adequate amount of urine output. Objective - Vital Signs Vital signs: Vital Signs Temp 99.5 F 10/25/17 04:00 Pulse 69 10/25/17 07:11 Resp 10 L 10/25/17 07:00 BP 107/65 10/24/17 06:00 Pulse Ox 94 L 10/25/17 07:00 Intake & Output 10/24/17 10/25/17 10/25/17 18:59 06:59 18:59 Intake Total 531.628 954.720 59 Output Total 5235 1245 55 Balance -4703.372 -290.280 4 Weight 95.2 kg Intake: IV 483 828 59 Cardiac Output (0.9 80 120 Sodium Chloride) Lactated Ringers 1,000 ml 250 600 50 @ 50 mls/hr IV .Q20H [facility] Rx#:[id number] Pressure Bag (0.9 Sodium 45 108 9 Chloride) Sodium Chloride 0.9% 1, 75 000 ml @ 75 mls/hr IV . [id number] [facility] Rx#:[id number] Intake, IV Titration 48.628 126.720 Amount Clevidipine Butyrate 25 46.734 6.149 mg In Empty Bag 1 bag @ 1 MG/HR 2 mls/hr IV .Q24H [facility] Rx#:[id number] Dexmedetomidine 400 mcg 114.922 In Sodium Chloride 0.9% 100 ml @ Titrate IV .Q0M [facility] Rx#:[id number] Insulin Regular 100 unit 1.894 5.649 In Sodium Chloride 0.9% 100 ml @ Per Protocol IV .Q0M [facility] Rx#:[id number] Output: Chest Tube Drainage 570 270 10 Chest Tube Left Pleural/ 570 270 10 Mediastinal Urine 3665 975 45 Estimated Blood Loss 1000 Other: Voiding Method Indwelling Catheter Indwelling Catheter ABP, PAP, CO, CI - Last Documented Arterial Blood Pressure 92/50 Pulmonary Artery Pressure 25/14 Cardiac Output 5.9 Cardiac Index 2.9 - Exam Gen. appearance the patient is calm comfortable. He has a mild distress mainly from the sternal chest wound pain. The patient is awake and alert and is following commands and answering questions appropriately.Neck was supple and without jugular venous distension, thyromegaly, or carotid bruits. Carotids were easily palpable bilaterally. There was no adenopathy. He has a right IJ Dundas-Santos catheter in place.Head exam was generally normal. There was no scleral icterus or corneal arcus. Mucous membranes were moist. Lungs sounds are diminished bilaterally otherwise they're clear. Sternum stable clean and intact. The patient is a mediastinal and the left pleural chest tube.Cardiac exam revealed the PMI to be normally situated and sized. The rhythm was regular and no extrasystoles were noted during several minutes of auscultation. The first and second heart sounds were normal and physiologic splitting of the second heart sound was noted. There were no murmurs, rubs, clicks, or gallops.Abdominal exam revealed normal bowel sounds. The abdomen was soft, non- tender, and without masses, organomegaly, or appreciable enlargement of the abdominal aorta.Examination of the extremities revealed easily palpable radial, femoral and pedal pulses. There was no cyanosis, clubbing or edema. Surgical wound site over the skin is all clean. The patient's neurologic exam is nonfocal and he is awake and alert. - Labs CBC & Chem 7: 10/25/17 04:15 10/25/17 04:15 Labs: Abnormal Lab Results - Last 24 Hours (Table) 10/23/17 10/24/17 10/24/17 Range/Units 04:30 09:39 10:44 WBC (3.8-10.6) k/uL Hct (39.0-53.0) % Neutrophils # (Manual) (1.3-7.7) k/uL Myelocytes # (Manual) (0) k/uL PT (9.0-12.0) sec INR (<1.2) ABG pH 7.34 L (7.35-7.45) ABG pCO2 (35-45) mmHg ABG pO2 216 H 182 H (83-108) mmHg ABG HCO3 (21-25) mmol/L ABG Total CO2 (19-24) mmol/L ABG O2 Saturation 99.7 H 99.5 H (94-97) % ABG Hematocrit 48 H (34.0-46.0) % ABG Sodium (135-146) mmol/L ABG Potassium (3.4-4.5) mmol/L ABG Ionized Calcium (4.5-5.3) mg/dL ABG Glucose 102 H 118 H (75-99) mg/dL Hemoglobin (13.0-17.5) gm/dL BUN (9-20) mg/dL Creatinine (0.66-1.25) mg/dL Glucose (74-99) mg/dL POC Glucose (mg/dL) (75-99) mg/dL Calcium (8.4-10.2) mg/dL AST (17-59) U/L Alkaline Phosphatase (38-126) U/L Total Protein (6.3-8.2) g/dL Arterial Blood Potassium (3.4-4.5) mmol/L Arterial Blood Glucose 102 H 118 H (75-99) mg/dL Crossmatch See Detail 10/24/17 10/24/17 10/24/17 Range/Units 11:16 11:47 12:16 WBC (3.8-10.6) k/uL Hct (39.0-53.0) % Neutrophils # (Manual) (1.3-7.7) k/uL Myelocytes # (Manual) (0) k/uL PT (9.0-12.0) sec INR (<1.2) ABG pH 7.33 L 7.31 L (7.35-7.45) ABG pCO2 (35-45) mmHg ABG pO2 349 H 146 H 292 H (83-108) mmHg ABG HCO3 (21-25) mmol/L ABG Total CO2 25 H (19-24) mmol/L ABG O2 Saturation 100.0 H 99.2 H 99.9 H (94-97) % ABG Hematocrit 33 L (34.0-46.0) % ABG Sodium 134 L (135-146) mmol/L ABG Potassium 5.6 H 5.3 H 5.1 H (3.4-4.5) mmol/L ABG Ionized Calcium 4.0 L 4.3 L 4.3 L (4.5-5.3) mg/dL ABG Glucose 213 H 203 H 193 H (75-99) mg/dL Hemoglobin 10.8 L 11.1 L 11.0 L (13.0-17.5) gm/dL BUN (9-20) mg/dL Creatinine (0.66-1.25) mg/dL Glucose (74-99) mg/dL POC Glucose (mg/dL) (75-99) mg/dL Calcium (8.4-10.2) mg/dL AST (17-59) U/L Alkaline Phosphatase (38-126) U/L Total Protein (6.3-8.2) g/dL Arterial Blood Potassium 5.6 H 5.3 H 5.1 H (3.4-4.5) mmol/L Arterial Blood Glucose 213 H 203 H 193 H (75-99) mg/dL Crossmatch 10/24/17 10/24/17 10/24/17 Range/Units 12:59 13:55 13:55 WBC 12.3 H (3.8-10.6) k/uL Hct 38.5 L (39.0-53.0) % Neutrophils # (Manual) 9.72 H (1.3-7.7) k/uL Myelocytes # (Manual) (0) k/uL PT (9.0-12.0) sec INR (<1.2) ABG pH 7.31 L (7.35-7.45) ABG pCO2 50 H (35-45) mmHg ABG pO2 (83-108) mmHg ABG HCO3 (21-25) mmol/L ABG Total CO2 27 H (19-24) mmol/L ABG O2 Saturation 97.1 H (94-97) % ABG Hematocrit (34.0-46.0) % ABG Sodium (135-146) mmol/L ABG Potassium (3.4-4.5) mmol/L ABG Ionized Calcium 4.1 L (4.5-5.3) mg/dL ABG Glucose 156 H (75-99) mg/dL Hemoglobin 11.6 L (13.0-17.5) gm/dL BUN 7 L (9-20) mg/dL Creatinine 0.65 L (0.66-1.25) mg/dL Glucose 120 H (74-99) mg/dL POC Glucose (mg/dL) (75-99) mg/dL Calcium 8.3 L (8.4-10.2) mg/dL AST (17-59) U/L Alkaline Phosphatase 32 L (38-126) U/L Total Protein 5.9 L (6.3-8.2) g/dL Arterial Blood Potassium (3.4-4.5) mmol/L Arterial Blood Glucose 156 H (75-99) mg/dL Crossmatch 10/24/17 10/24/17 10/24/17 Range/Units 13:55 14:00 14:03 WBC (3.8-10.6) k/uL Hct (39.0-53.0) % Neutrophils # (Manual) (1.3-7.7) k/uL Myelocytes # (Manual) (0) k/uL PT 12.3 H (9.0-12.0) sec INR 1.3 H (<1.2) ABG pH 7.33 L (7.35-7.45) ABG pCO2 50 H (35-45) mmHg ABG pO2 (83-108) mmHg ABG HCO3 26 H (21-25) mmol/L ABG Total CO2 28 H (19-24) mmol/L ABG O2 Saturation (94-97) % ABG Hematocrit (34.0-46.0) % ABG Sodium (135-146) mmol/L ABG Potassium (3.4-4.5) mmol/L ABG Ionized Calcium (4.5-5.3) mg/dL ABG Glucose (75-99) mg/dL Hemoglobin (13.0-17.5) gm/dL BUN (9-20) mg/dL Creatinine (0.66-1.25) mg/dL Glucose (74-99) mg/dL POC Glucose (mg/dL) 116 H (75-99) mg/dL Calcium (8.4-10.2) mg/dL AST (17-59) U/L Alkaline Phosphatase (38-126) U/L Total Protein (6.3-8.2) g/dL Arterial Blood Potassium (3.4-4.5) mmol/L Arterial Blood Glucose (75-99) mg/dL Crossmatch 10/24/17 10/24/17 10/24/17 Range/Units 15:02 16:11 17:14 WBC (3.8-10.6) k/uL Hct (39.0-53.0) % Neutrophils # (Manual) (1.3-7.7) k/uL Myelocytes # (Manual) (0) k/uL PT (9.0-12.0) sec INR (<1.2) ABG pH (7.35-7.45) ABG pCO2 (35-45) mmHg ABG pO2 (83-108) mmHg ABG HCO3 (21-25) mmol/L ABG Total CO2 (19-24) mmol/L ABG O2 Saturation (94-97) % ABG Hematocrit (34.0-46.0) % ABG Sodium (135-146) mmol/L ABG Potassium (3.4-4.5) mmol/L ABG Ionized Calcium (4.5-5.3) mg/dL ABG Glucose (75-99) mg/dL Hemoglobin (13.0-17.5) gm/dL BUN (9-20) mg/dL Creatinine (0.66-1.25) mg/dL Glucose (74-99) mg/dL POC Glucose (mg/dL) 127 H 122 H 117 H (75-99) mg/dL Calcium (8.4-10.2) mg/dL AST (17-59) U/L Alkaline Phosphatase (38-126) U/L Total Protein (6.3-8.2) g/dL Arterial Blood Potassium (3.4-4.5) mmol/L Arterial Blood Glucose (75-99) mg/dL Crossmatch 10/24/17 10/24/17 10/24/17 Range/Units 17:15 18:01 19:10 WBC 13.7 H (3.8-10.6) k/uL Hct (39.0-53.0) % Neutrophils # (Manual) 11.60 H (1.3-7.7) k/uL Myelocytes # (Manual) 0.27 H (0) k/uL PT (9.0-12.0) sec INR (<1.2) ABG pH (7.35-7.45) ABG pCO2 (35-45) mmHg ABG pO2 (83-108) mmHg ABG HCO3 (21-25) mmol/L ABG Total CO2 (19-24) mmol/L ABG O2 Saturation (94-97) % ABG Hematocrit (34.0-46.0) % ABG Sodium (135-146) mmol/L ABG Potassium (3.4-4.5) mmol/L ABG Ionized Calcium (4.5-5.3) mg/dL ABG Glucose (75-99) mg/dL Hemoglobin (13.0-17.5) gm/dL BUN (9-20) mg/dL Creatinine (0.66-1.25) mg/dL Glucose (74-99) mg/dL POC Glucose (mg/dL) 125 H 119 H (75-99) mg/dL Calcium (8.4-10.2) mg/dL AST (17-59) U/L Alkaline Phosphatase (38-126) U/L Total Protein (6.3-8.2) g/dL Arterial Blood Potassium (3.4-4.5) mmol/L Arterial Blood Glucose (75-99) mg/dL Crossmatch 10/24/17 10/24/17 10/24/17 Range/Units 20:11 20:13 21:02 WBC 14.1 H (3.8-10.6) k/uL Hct (39.0-53.0) % Neutrophils # (Manual) 11.90 H (1.3-7.7) k/uL Myelocytes # (Manual) (0) k/uL PT (9.0-12.0) sec INR (<1.2) ABG pH (7.35-7.45) ABG pCO2 (35-45) mmHg ABG pO2 (83-108) mmHg ABG HCO3 (21-25) mmol/L ABG Total CO2 (19-24) mmol/L ABG O2 Saturation (94-97) % ABG Hematocrit (34.0-46.0) % ABG Sodium (135-146) mmol/L ABG Potassium (3.4-4.5) mmol/L ABG Ionized Calcium (4.5-5.3) mg/dL ABG Glucose (75-99) mg/dL Hemoglobin (13.0-17.5) gm/dL BUN (9-20) mg/dL Creatinine (0.66-1.25) mg/dL Glucose (74-99) mg/dL POC Glucose (mg/dL) 125 H 119 H (75-99) mg/dL Calcium (8.4-10.2) mg/dL AST (17-59) U/L Alkaline Phosphatase (38-126) U/L Total Protein (6.3-8.2) g/dL Arterial Blood Potassium (3.4-4.5) mmol/L Arterial Blood Glucose (75-99) mg/dL Crossmatch 10/24/17 10/24/17 10/25/17 Range/Units 22:12 23:18 00:05 WBC (3.8-10.6) k/uL Hct (39.0-53.0) % Neutrophils # (Manual) (1.3-7.7) k/uL Myelocytes # (Manual) (0) k/uL PT (9.0-12.0) sec INR (<1.2) ABG pH (7.35-7.45) ABG pCO2 (35-45) mmHg ABG pO2 (83-108) mmHg ABG HCO3 (21-25) mmol/L ABG Total CO2 (19-24) mmol/L ABG O2 Saturation (94-97) % ABG Hematocrit (34.0-46.0) % ABG Sodium (135-146) mmol/L ABG Potassium (3.4-4.5) mmol/L ABG Ionized Calcium (4.5-5.3) mg/dL ABG Glucose (75-99) mg/dL Hemoglobin (13.0-17.5) gm/dL BUN (9-20) mg/dL Creatinine (0.66-1.25) mg/dL Glucose (74-99) mg/dL POC Glucose (mg/dL) 127 H 116 H 119 H (75-99) mg/dL Calcium (8.4-10.2) mg/dL AST (17-59) U/L Alkaline Phosphatase (38-126) U/L Total Protein (6.3-8.2) g/dL Arterial Blood Potassium (3.4-4.5) mmol/L Arterial Blood Glucose (75-99) mg/dL Crossmatch 04/10/25/17 10/25/17 Range/Units 01:03 02:01 02:50 WBC (3.8-10.6) k/uL Hct (39.0-53.0) % Neutrophils # (Manual) (1.3-7.7) k/uL Myelocytes # (Manual) (0) k/uL PT (9.0-12.0) sec INR (<1.2) ABG pH (7.35-7.45) ABG pCO2 (35-45) mmHg ABG pO2 (83-108) mmHg ABG HCO3 (21-25) mmol/L ABG Total CO2 25 H (19-24) mmol/L ABG O2 Saturation 97.9 H (94-97) % ABG Hematocrit (34.0-46.0) % ABG Sodium (135-146) mmol/L ABG Potassium (3.4-4.5) mmol/L ABG Ionized Calcium (4.5-5.3) mg/dL ABG Glucose (75-99) mg/dL Hemoglobin (13.0-17.5) gm/dL BUN (9-20) mg/dL Creatinine (0.66-1.25) mg/dL Glucose (74-99) mg/dL POC Glucose (mg/dL) 116 H 108 H (75-99) mg/dL Calcium (8.4-10.2) mg/dL AST (17-59) U/L Alkaline Phosphatase (38-126) U/L Total Protein (6.3-8.2) g/dL Arterial Blood Potassium (3.4-4.5) mmol/L Arterial Blood Glucose (75-99) mg/dL Crossmatch 10/25/17 10/25/17 10/25/17 Range/Units 03:17 04:13 04:15 WBC 11.1 H (3.8-10.6) k/uL Hct (39.0-53.0) % Neutrophils # (Manual) 8.77 H (1.3-7.7) k/uL Myelocytes # (Manual) (0) k/uL PT (9.0-12.0) sec INR (<1.2) ABG pH (7.35-7.45) ABG pCO2 (35-45) mmHg ABG pO2 (83-108) mmHg ABG HCO3 (21-25) mmol/L ABG Total CO2 (19-24) mmol/L ABG O2 Saturation (94-97) % ABG Hematocrit (34.0-46.0) % ABG Sodium (135-146) mmol/L ABG Potassium (3.4-4.5) mmol/L ABG Ionized Calcium (4.5-5.3) mg/dL ABG Glucose (75-99) mg/dL Hemoglobin (13.0-17.5) gm/dL BUN (9-20) mg/dL Creatinine (0.66-1.25) mg/dL Glucose (74-99) mg/dL POC Glucose (mg/dL) 114 H 117 H (75-99) mg/dL Calcium (8.4-10.2) mg/dL AST (17-59) U/L Alkaline Phosphatase (38-126) U/L Total Protein (6.3-8.2) g/dL Arterial Blood Potassium (3.4-4.5) mmol/L Arterial Blood Glucose (75-99) mg/dL Crossmatch 10/25/17 10/25/17 10/25/17 Range/Units 04:15 04:15 06:07 WBC (3.8-10.6) k/uL Hct (39.0-53.0) % Neutrophils # (Manual) (1.3-7.7) k/uL Myelocytes # (Manual) (0) k/uL PT (9.0-12.0) sec INR 1.2 H (<1.2) ABG pH (7.35-7.45) ABG pCO2 (35-45) mmHg ABG pO2 (83-108) mmHg ABG HCO3 (21-25) mmol/L ABG Total CO2 (19-24) mmol/L ABG O2 Saturation (94-97) % ABG Hematocrit (34.0-46.0) % ABG Sodium (135-146) mmol/L ABG Potassium (3.4-4.5) mmol/L ABG Ionized Calcium (4.5-5.3) mg/dL ABG Glucose (75-99) mg/dL Hemoglobin (13.0-17.5) gm/dL BUN (9-20) mg/dL Creatinine 0.60 L (0.66-1.25) mg/dL Glucose 117 H (74-99) mg/dL POC Glucose (mg/dL) 105 H (75-99) mg/dL Calcium (8.4-10.2) mg/dL AST 68 H (17-59) U/L Alkaline Phosphatase (38-126) U/L Total Protein 6.0 L (6.3-8.2) g/dL Arterial Blood Potassium (3.4-4.5) mmol/L Arterial Blood Glucose (75-99) mg/dL Crossmatch 10/25/17 Range/Units 08:03 WBC (3.8-10.6) k/uL Hct (39.0-53.0) % Neutrophils # (Manual) (1.3-7.7) k/uL Myelocytes # (Manual) (0) k/uL PT (9.0-12.0) sec INR (<1.2) ABG pH (7.35-7.45) ABG pCO2 (35-45) mmHg ABG pO2 (83-108) mmHg ABG HCO3 (21-25) mmol/L ABG Total CO2 (19-24) mmol/L ABG O2 Saturation (94-97) % ABG Hematocrit (34.0-46.0) % ABG Sodium (135-146) mmol/L ABG Potassium (3.4-4.5) mmol/L ABG Ionized Calcium (4.5-5.3) mg/dL ABG Glucose (75-99) mg/dL Hemoglobin (13.0-17.5) gm/dL BUN (9-20) mg/dL Creatinine (0.66-1.25) mg/dL Glucose (74-99) mg/dL POC Glucose (mg/dL) 108 H (75-99) mg/dL Calcium (8.4-10.2) mg/dL AST (17-59) U/L Alkaline Phosphatase (38-126) U/L Total Protein (6.3-8.2) g/dL Arterial Blood Potassium (3.4-4.5) mmol/L Arterial Blood Glucose (75-99) mg/dL Crossmatch Assessment and Plan Plan: Assessment: #1. Severe three-vessel coronary artery disease, and the patient is post three- vessel bypass surgery. Patient is postop day #1. Hemodynamically stable. He is being weaned off the Precedex. He is on a 50% Ventimask post extubation. His chest x-ray from this morning shows a limited right upper lobe atelectasis probably related to a mucous plug. He is on no pressors. Hemodynamically stable. Adequate cardiac output. Chest tubes are still in place and output has been noted. #2. Non-ST elevated AL #3. Previous history of heavy tobacco use, based on FEV1 is noted of 96% of predicted. The patient is doing well on his incentive spirometer #4. History of prescription drug abuse, currently on Suboxone #5. History of hyperlipidemia Plan Continue aspirin and Plavix and beta blockers and statins. Continue monitoring the output from the chest tube. Monitor the oxygenation. Incentive spirometer. Chest PT. Pain control with Toradol and oxycodone. Wean off Precedex and discontinue. We'll continue to follow. No be staying in ICU for another 24 hours.
[2017-10-25] MEDS ORDERED: PANTOPRAZOLE 40 MG/10 ML VIAL IVP SCH (09:00)
--- NOTE | 2017-10-25 09:03 | P.PN ---
Subjective Progress Note Date: 10/25/17 Principal diagnosis: Severe triple vessel coronary artery disease, non-ST elevated myocardial infarction this admission, history of prescription drug abuse, currently on Suboxone, preoperative bradycardia, hyperlipidemia, current nicotine dependence , and preoperative FEV1 was 96% of predicted. POD #1 urgent coronary artery bypass grafting 3 vessels with placement of his left internal mammary artery to his left anterior descending coronary artery, a reverse greater saphenous vein graft off the aorta to the posterior descending coronary artery and to the circumflex coronary artery and the left internal mammary artery to the left anterior descending coronary artery with endoscopic vein harvesting and intraoperative LUKE. Patient is lying in bed with his head elevated. He is in no acute distress. He is complaining of pain to his chest tube insertion sites 9 out of 10 on the pain scale. Precedex continues at 0.3 mcg/kg/m. Oxygen saturation are 94% on 50% Ventimask, he is achieving 500 mL on his incentive spirometry with encouragement. Objective - Vital Signs Vital signs: Vital Signs Temp 99.5 F 10/25/17 04:00 Pulse 72 10/25/17 08:00 Resp 15 10/25/17 08:00 BP 107/65 10/24/17 06:00 Pulse Ox 94 L 10/25/17 08:00 Intake & Output 10/24/17 10/25/17 10/25/17 18:59 06:59 18:59 Intake Total 531.628 954.720 138 Output Total 5235 1245 145 Balance -4703.372 -290.280 -7 Weight 95.2 kg Intake: IV 483 828 138 Cardiac Output (0.9 80 120 20 Sodium Chloride) Lactated Ringers 1,000 ml 250 600 100 @ 50 mls/hr IV .Q20H [facility] Rx#:[id number] Pressure Bag (0.9 Sodium 45 108 18 Chloride) Sodium Chloride 0.9% 1, 75 000 ml @ 75 mls/hr IV . [id number] [facility] Rx#:[id number] Intake, IV Titration 48.628 126.720 Amount Clevidipine Butyrate 25 46.734 6.149 mg In Empty Bag 1 bag @ 1 MG/HR 2 mls/hr IV .Q24H [facility] Rx#:[id number] Dexmedetomidine 400 mcg 114.922 In Sodium Chloride 0.9% 100 ml @ Titrate IV .Q0M [facility] Rx#:[id number] Insulin Regular 100 unit 1.894 5.649 In Sodium Chloride 0.9% 100 ml @ Per Protocol IV .Q0M [facility] Rx#:[id number] Output: Chest Tube Drainage 570 270 70 Chest Tube Left Pleural/ 570 270 70 Mediastinal Urine 3665 975 75 Estimated Blood Loss 1000 Other: Voiding Method Indwelling Catheter Indwelling Catheter Indwelling Catheter ABP, PAP, CO, CI - Last Documented Arterial Blood Pressure 93/49 Pulmonary Artery Pressure 25/14 Cardiac Output 5.7 Cardiac Index 2.8 - Constitutional General appearance: Present: cooperative, no acute distress, obese - EENT ENT: Present: hearing grossly normal - Neck Details: Neck is supple, no JVD, no lymphadenopathy. Right IJ Cordis with Miami-Santos catheter in place and functioning. - Respiratory Details: Lung sounds diminished throughout. Respirations are symmetrical and nonlabored. Oxygen saturation are 94% on 50% Ventimask. He is achieving 500 mL on his incentive spirometry with much encouragement. Left pleural and mediastinal chest tubes remain to low continuous wall suction -20 cm H2O. No air leak present. Draining thin serosanguineous drainage. 160 mL output in the last 8 hours, 600 mL output since surgery. - Cardiovascular Details: Regular rhythm and rate. S1 and S2 present, negative for S3, gallop or murmur. Bedside telemetry showing normal sinus rhythm heart rate 71. Sternum is stable. Heart hugger is in place and he is demonstrating appropriate use. Ventricular epicardial pacemaker wires in place and to back up generator. Knee- high ROCAEL hose and sequential compression devices in place to his bilateral lower extremities. - Gastrointestinal Gastrointestinal Comment(s): Abdomen is soft, nontender and nondistended. Hypoactive bowel sounds all 4 abdominal quadrants. Tolerating oral intake. - Genitourinary Genitourinary Comment(s): Gooden catheter for accurate I&O. Draining clear yellow urine. Adequate urine output, 310 mL output in the last 8 hours. - Integumentary Integumentary Comment(s): Skin is warm and dry. No clubbing or cyanosis present. Midline sternal incision clean dry and approximated. No drainage or redness present. Dermabond dressing clean and dry. Right leg EVH harvest site clean dry and approximated. No drainage or redness present. - Neurologic Neurologic: Present: CNII-XII intact - Musculoskeletal Musculoskeletal: Present: gait normal, strength equal bilaterally - Psychiatric Psychiatric: Present: A&O x's 3, appropriate affect, intact judgment & insight - Allied health notes Allied health notes reviewed: nursing - Labs CBC & Chem 7: 10/25/17 04:15 10/25/17 04:15 Labs: Abnormal Lab Results - Last 24 Hours (Table) 10/23/17 10/24/17 10/24/17 Range/Units 04:30 09:39 10:44 WBC (3.8-10.6) k/uL Hct (39.0-53.0) % Neutrophils # (Manual) (1.3-7.7) k/uL Myelocytes # (Manual) (0) k/uL PT (9.0-12.0) sec INR (<1.2) ABG pH 7.34 L (7.35-7.45) ABG pCO2 (35-45) mmHg ABG pO2 216 H 182 H (83-108) mmHg ABG HCO3 (21-25) mmol/L ABG Total CO2 (19-24) mmol/L ABG O2 Saturation 99.7 H 99.5 H (94-97) % ABG Hematocrit 48 H (34.0-46.0) % ABG Sodium (135-146) mmol/L ABG Potassium (3.4-4.5) mmol/L ABG Ionized Calcium (4.5-5.3) mg/dL ABG Glucose 102 H 118 H (75-99) mg/dL Hemoglobin (13.0-17.5) gm/dL BUN (9-20) mg/dL Creatinine (0.66-1.25) mg/dL Glucose (74-99) mg/dL POC Glucose (mg/dL) (75-99) mg/dL Calcium (8.4-10.2) mg/dL AST (17-59) U/L Alkaline Phosphatase (38-126) U/L Total Protein (6.3-8.2) g/dL Arterial Blood Potassium (3.4-4.5) mmol/L Arterial Blood Glucose 102 H 118 H (75-99) mg/dL Crossmatch See Detail 10/24/17 10/24/17 10/24/17 Range/Units 11:16 11:47 12:16 WBC (3.8-10.6) k/uL Hct (39.0-53.0) % Neutrophils # (Manual) (1.3-7.7) k/uL Myelocytes # (Manual) (0) k/uL PT (9.0-12.0) sec INR (<1.2) ABG pH 7.33 L 7.31 L (7.35-7.45) ABG pCO2 (35-45) mmHg ABG pO2 349 H 146 H 292 H (83-108) mmHg ABG HCO3 (21-25) mmol/L ABG Total CO2 25 H (19-24) mmol/L ABG O2 Saturation 100.0 H 99.2 H 99.9 H (94-97) % ABG Hematocrit 33 L (34.0-46.0) % ABG Sodium 134 L (135-146) mmol/L ABG Potassium 5.6 H 5.3 H 5.1 H (3.4-4.5) mmol/L ABG Ionized Calcium 4.0 L 4.3 L 4.3 L (4.5-5.3) mg/dL ABG Glucose 213 H 203 H 193 H (75-99) mg/dL Hemoglobin 10.8 L 11.1 L 11.0 L (13.0-17.5) gm/dL BUN (9-20) mg/dL Creatinine (0.66-1.25) mg/dL Glucose (74-99) mg/dL POC Glucose (mg/dL) (75-99) mg/dL Calcium (8.4-10.2) mg/dL AST (17-59) U/L Alkaline Phosphatase (38-126) U/L Total Protein (6.3-8.2) g/dL Arterial Blood Potassium 5.6 H 5.3 H 5.1 H (3.4-4.5) mmol/L Arterial Blood Glucose 213 H 203 H 193 H (75-99) mg/dL Crossmatch 10/24/17 10/24/17 10/24/17 Range/Units 12:59 13:55 13:55 WBC 12.3 H (3.8-10.6) k/uL Hct 38.5 L (39.0-53.0) % Neutrophils # (Manual) 9.72 H (1.3-7.7) k/uL Myelocytes # (Manual) (0) k/uL PT (9.0-12.0) sec INR (<1.2) ABG pH 7.31 L (7.35-7.45) ABG pCO2 50 H (35-45) mmHg ABG pO2 (83-108) mmHg ABG HCO3 (21-25) mmol/L ABG Total CO2 27 H (19-24) mmol/L ABG O2 Saturation 97.1 H (94-97) % ABG Hematocrit (34.0-46.0) % ABG Sodium (135-146) mmol/L ABG Potassium (3.4-4.5) mmol/L ABG Ionized Calcium 4.1 L (4.5-5.3) mg/dL ABG Glucose 156 H (75-99) mg/dL Hemoglobin 11.6 L (13.0-17.5) gm/dL BUN 7 L (9-20) mg/dL Creatinine 0.65 L (0.66-1.25) mg/dL Glucose 120 H (74-99) mg/dL POC Glucose (mg/dL) (75-99) mg/dL Calcium 8.3 L (8.4-10.2) mg/dL AST (17-59) U/L Alkaline Phosphatase 32 L (38-126) U/L Total Protein 5.9 L (6.3-8.2) g/dL Arterial Blood Potassium (3.4-4.5) mmol/L Arterial Blood Glucose 156 H (75-99) mg/dL Crossmatch 10/24/17 10/24/17 10/24/17 Range/Units 13:55 14:00 14:03 WBC (3.8-10.6) k/uL Hct (39.0-53.0) % Neutrophils # (Manual) (1.3-7.7) k/uL Myelocytes # (Manual) (0) k/uL PT 12.3 H (9.0-12.0) sec INR 1.3 H (<1.2) ABG pH 7.33 L (7.35-7.45) ABG pCO2 50 H (35-45) mmHg ABG pO2 (83-108) mmHg ABG HCO3 26 H (21-25) mmol/L ABG Total CO2 28 H (19-24) mmol/L ABG O2 Saturation (94-97) % ABG Hematocrit (34.0-46.0) % ABG Sodium (135-146) mmol/L ABG Potassium (3.4-4.5) mmol/L ABG Ionized Calcium (4.5-5.3) mg/dL ABG Glucose (75-99) mg/dL Hemoglobin (13.0-17.5) gm/dL BUN (9-20) mg/dL Creatinine (0.66-1.25) mg/dL Glucose (74-99) mg/dL POC Glucose (mg/dL) 116 H (75-99) mg/dL Calcium (8.4-10.2) mg/dL AST (17-59) U/L Alkaline Phosphatase (38-126) U/L Total Protein (6.3-8.2) g/dL Arterial Blood Potassium (3.4-4.5) mmol/L Arterial Blood Glucose (75-99) mg/dL Crossmatch 10/24/17 10/24/17 10/24/17 Range/Units 15:02 16:11 17:14 WBC (3.8-10.6) k/uL Hct (39.0-53.0) % Neutrophils # (Manual) (1.3-7.7) k/uL Myelocytes # (Manual) (0) k/uL PT (9.0-12.0) sec INR (<1.2) ABG pH (7.35-7.45) ABG pCO2 (35-45) mmHg ABG pO2 (83-108) mmHg ABG HCO3 (21-25) mmol/L ABG Total CO2 (19-24) mmol/L ABG O2 Saturation (94-97) % ABG Hematocrit (34.0-46.0) % ABG Sodium (135-146) mmol/L ABG Potassium (3.4-4.5) mmol/L ABG Ionized Calcium (4.5-5.3) mg/dL ABG Glucose (75-99) mg/dL Hemoglobin (13.0-17.5) gm/dL BUN (9-20) mg/dL Creatinine (0.66-1.25) mg/dL Glucose (74-99) mg/dL POC Glucose (mg/dL) 127 H 122 H 117 H (75-99) mg/dL Calcium (8.4-10.2) mg/dL AST (17-59) U/L Alkaline Phosphatase (38-126) U/L Total Protein (6.3-8.2) g/dL Arterial Blood Potassium (3.4-4.5) mmol/L Arterial Blood Glucose (75-99) mg/dL Crossmatch 10/24/17 10/24/17 10/24/17 Range/Units 17:15 18:01 19:10 WBC 13.7 H (3.8-10.6) k/uL Hct (39.0-53.0) % Neutrophils # (Manual) 11.60 H (1.3-7.7) k/uL Myelocytes # (Manual) 0.27 H (0) k/uL PT (9.0-12.0) sec INR (<1.2) ABG pH (7.35-7.45) ABG pCO2 (35-45) mmHg ABG pO2 (83-108) mmHg ABG HCO3 (21-25) mmol/L ABG Total CO2 (19-24) mmol/L ABG O2 Saturation (94-97) % ABG Hematocrit (34.0-46.0) % ABG Sodium (135-146) mmol/L ABG Potassium (3.4-4.5) mmol/L ABG Ionized Calcium (4.5-5.3) mg/dL ABG Glucose (75-99) mg/dL Hemoglobin (13.0-17.5) gm/dL BUN (9-20) mg/dL Creatinine (0.66-1.25) mg/dL Glucose (74-99) mg/dL POC Glucose (mg/dL) 125 H 119 H (75-99) mg/dL Calcium (8.4-10.2) mg/dL AST (17-59) U/L Alkaline Phosphatase (38-126) U/L Total Protein (6.3-8.2) g/dL Arterial Blood Potassium (3.4-4.5) mmol/L Arterial Blood Glucose (75-99) mg/dL Crossmatch 10/24/17 10/24/17 10/24/17 Range/Units 20:11 20:13 21:02 WBC 14.1 H (3.8-10.6) k/uL Hct (39.0-53.0) % Neutrophils # (Manual) 11.90 H (1.3-7.7) k/uL Myelocytes # (Manual) (0) k/uL PT (9.0-12.0) sec INR (<1.2) ABG pH (7.35-7.45) ABG pCO2 (35-45) mmHg ABG pO2 (83-108) mmHg ABG HCO3 (21-25) mmol/L ABG Total CO2 (19-24) mmol/L ABG O2 Saturation (94-97) % ABG Hematocrit (34.0-46.0) % ABG Sodium (135-146) mmol/L ABG Potassium (3.4-4.5) mmol/L ABG Ionized Calcium (4.5-5.3) mg/dL ABG Glucose (75-99) mg/dL Hemoglobin (13.0-17.5) gm/dL BUN (9-20) mg/dL Creatinine (0.66-1.25) mg/dL Glucose (74-99) mg/dL POC Glucose (mg/dL) 125 H 119 H (75-99) mg/dL Calcium (8.4-10.2) mg/dL AST (17-59) U/L Alkaline Phosphatase (38-126) U/L Total Protein (6.3-8.2) g/dL Arterial Blood Potassium (3.4-4.5) mmol/L Arterial Blood Glucose (75-99) mg/dL Crossmatch 10/24/17 10/24/17 10/25/17 Range/Units 22:12 23:18 00:05 WBC (3.8-10.6) k/uL Hct (39.0-53.0) % Neutrophils # (Manual) (1.3-7.7) k/uL Myelocytes # (Manual) (0) k/uL PT (9.0-12.0) sec INR (<1.2) ABG pH (7.35-7.45) ABG pCO2 (35-45) mmHg ABG pO2 (83-108) mmHg ABG HCO3 (21-25) mmol/L ABG Total CO2 (19-24) mmol/L ABG O2 Saturation (94-97) % ABG Hematocrit (34.0-46.0) % ABG Sodium (135-146) mmol/L ABG Potassium (3.4-4.5) mmol/L ABG Ionized Calcium (4.5-5.3) mg/dL ABG Glucose (75-99) mg/dL Hemoglobin (13.0-17.5) gm/dL BUN (9-20) mg/dL Creatinine (0.66-1.25) mg/dL Glucose (74-99) mg/dL POC Glucose (mg/dL) 127 H 116 H 119 H (75-99) mg/dL Calcium (8.4-10.2) mg/dL AST (17-59) U/L Alkaline Phosphatase (38-126) U/L Total Protein (6.3-8.2) g/dL Arterial Blood Potassium (3.4-4.5) mmol/L Arterial Blood Glucose (75-99) mg/dL Crossmatch 10/25/17 10/25/17 10/25/17 Range/Units 01:03 02:01 02:50 WBC (3.8-10.6) k/uL Hct (39.0-53.0) % Neutrophils # (Manual) (1.3-7.7) k/uL Myelocytes # (Manual) (0) k/uL PT (9.0-12.0) sec INR (<1.2) ABG pH (7.35-7.45) ABG pCO2 (35-45) mmHg ABG pO2 (83-108) mmHg ABG HCO3 (21-25) mmol/L ABG Total CO2 25 H (19-24) mmol/L ABG O2 Saturation 97.9 H (94-97) % ABG Hematocrit (34.0-46.0) % ABG Sodium (135-146) mmol/L ABG Potassium (3.4-4.5) mmol/L ABG Ionized Calcium (4.5-5.3) mg/dL ABG Glucose (75-99) mg/dL Hemoglobin (13.0-17.5) gm/dL BUN (9-20) mg/dL Creatinine (0.66-1.25) mg/dL Glucose (74-99) mg/dL POC Glucose (mg/dL) 116 H 108 H (75-99) mg/dL Calcium (8.4-10.2) mg/dL AST (17-59) U/L Alkaline Phosphatase (38-126) U/L Total Protein (6.3-8.2) g/dL Arterial Blood Potassium (3.4-4.5) mmol/L Arterial Blood Glucose (75-99) mg/dL Crossmatch 10/25/17 10/25/17 10/25/17 Range/Units 03:17 04:13 04:15 WBC 11.1 H (3.8-10.6) k/uL Hct (39.0-53.0) % Neutrophils # (Manual) 8.77 H (1.3-7.7) k/uL Myelocytes # (Manual) (0) k/uL PT (9.0-12.0) sec INR (<1.2) ABG pH (7.35-7.45) ABG pCO2 (35-45) mmHg ABG pO2 (83-108) mmHg ABG HCO3 (21-25) mmol/L ABG Total CO2 (19-24) mmol/L ABG O2 Saturation (94-97) % ABG Hematocrit (34.0-46.0) % ABG Sodium (135-146) mmol/L ABG Potassium (3.4-4.5) mmol/L ABG Ionized Calcium (4.5-5.3) mg/dL ABG Glucose (75-99) mg/dL Hemoglobin (13.0-17.5) gm/dL BUN (9-20) mg/dL Creatinine (0.66-1.25) mg/dL Glucose (74-99) mg/dL POC Glucose (mg/dL) 114 H 117 H (75-99) mg/dL Calcium (8.4-10.2) mg/dL AST (17-59) U/L Alkaline Phosphatase (38-126) U/L Total Protein (6.3-8.2) g/dL Arterial Blood Potassium (3.4-4.5) mmol/L Arterial Blood Glucose (75-99) mg/dL Crossmatch 10/25/17 10/25/17 10/25/17 Range/Units 04:15 04:15 06:07 WBC (3.8-10.6) k/uL Hct (39.0-53.0) % Neutrophils # (Manual) (1.3-7.7) k/uL Myelocytes # (Manual) (0) k/uL PT (9.0-12.0) sec INR 1.2 H (<1.2) ABG pH (7.35-7.45) ABG pCO2 (35-45) mmHg ABG pO2 (83-108) mmHg ABG HCO3 (21-25) mmol/L ABG Total CO2 (19-24) mmol/L ABG O2 Saturation (94-97) % ABG Hematocrit (34.0-46.0) % ABG Sodium (135-146) mmol/L ABG Potassium (3.4-4.5) mmol/L ABG Ionized Calcium (4.5-5.3) mg/dL ABG Glucose (75-99) mg/dL Hemoglobin (13.0-17.5) gm/dL BUN (9-20) mg/dL Creatinine 0.60 L (0.66-1.25) mg/dL Glucose 117 H (74-99) mg/dL POC Glucose (mg/dL) 105 H (75-99) mg/dL Calcium (8.4-10.2) mg/dL AST 68 H (17-59) U/L Alkaline Phosphatase (38-126) U/L Total Protein 6.0 L (6.3-8.2) g/dL Arterial Blood Potassium (3.4-4.5) mmol/L Arterial Blood Glucose (75-99) mg/dL Crossmatch 10/25/17 Range/Units 08:03 WBC (3.8-10.6) k/uL Hct (39.0-53.0) % Neutrophils # (Manual) (1.3-7.7) k/uL Myelocytes # (Manual) (0) k/uL PT (9.0-12.0) sec INR (<1.2) ABG pH (7.35-7.45) ABG pCO2 (35-45) mmHg ABG pO2 (83-108) mmHg ABG HCO3 (21-25) mmol/L ABG Total CO2 (19-24) mmol/L ABG O2 Saturation (94-97) % ABG Hematocrit (34.0-46.0) % ABG Sodium (135-146) mmol/L ABG Potassium (3.4-4.5) mmol/L ABG Ionized Calcium (4.5-5.3) mg/dL ABG Glucose (75-99) mg/dL Hemoglobin (13.0-17.5) gm/dL BUN (9-20) mg/dL Creatinine (0.66-1.25) mg/dL Glucose (74-99) mg/dL POC Glucose (mg/dL) 108 H (75-99) mg/dL Calcium (8.4-10.2) mg/dL AST (17-59) U/L Alkaline Phosphatase (38-126) U/L Total Protein (6.3-8.2) g/dL Arterial Blood Potassium (3.4-4.5) mmol/L Arterial Blood Glucose (75-99) mg/dL Crossmatch - Imaging and Cardiology Chest x-ray: report reviewed, image reviewed Assessment and Plan (1) Sinus bradycardia Current Visit: Yes Status: Chronic Code(s): R00.1 - BRADYCARDIA, UNSPECIFIED SNOMED Code(s): 92115151 (2) ST elevation myocardial infarction (STEMI) Current Visit: Yes Status: Acute Code(s): I21.3 - ST ELEVATION (STEMI) MYOCARDIAL INFARCTION OF [facility] SITE SNOMED Code(s): 785817993 (3) Nicotine dependence Current Visit: Yes Status: Chronic Code(s): F17.200 - NICOTINE DEPENDENCE, UNSPECIFIED, UNCOMPLICATED SNOMED Code(s): 77356491 (4) History of prescription drug abuse Current Visit: No Status: Resolved Code(s): F19.21 - OTHER PSYCHOACTIVE SUBSTANCE DEPENDENCE, IN REMISSION SNOMED Code(s): 476479109 Plan: 1. Continue aspirin, statin, Plavix, and beta yaakov. We will maximize beta yaakov as tolerated. Discontinue IV NTG. 2. Continue Toradol to assist with pain management. Wean Precedex 3. Discontinue Miami-Santos catheter. Please connect Cordis to continuous CVP monitoring. 4. We will monitor his daily labs and chest x-rays. 5. Increase activity as tolerated. Occupational, physical, and cardiac rehab consulted. 6. DVT and GI prophylaxis. 7. Encourage use of her incentive spirometry every hour while awake. 8. Pulmonary management recommendations per Dr. Hanna. 9. Reinforced the importance of smoking cessation. 10. More recommendations to follow based on the patient's clinical course. Time with Patient: Greater than 30
[2017-10-25] MEDS: NITROGLYCERIN-D5W PMX 50 MG in DEXTROSE/WATER 1 250ML.BAG IV SCH ×2 (09:22→10:32)
[2017-10-25] MEDS: MUPIROCIN 2% OINT 22 GM TUBE NASAL SCH (09:23)
[2017-10-25] MEDS ORDERED: FUROSEMIDE 10 MG/ML 4 ML VIAL IV STA (09:45)
--- NOTE | 2017-10-25 09:59 | XR ---
EXAMINATION TYPE: XR chest 1V portable DATE OF EXAM: 10/25/2017 COMPARISON: Prior chest x-ray 10/24/2017 HISTORY: Postop cardiac surgery, chest tube TECHNIQUE: Single frontal view of the chest is obtained. FINDINGS: Patient is rotated. Endotracheal tube and NG tube have been removed. Median sternal drain, left chest tube, right jugular central venous sheath and coaxial In[place]-Santos catheter, overlying cardi ac leads again noted. Interval right upper lobe atelectatic changes are present. No sizable pneumotho rax or pleural effusion. Cardiac mediastinal silhouette is stable accounting for differences in techn ique. Epicardial pacing leads noted. Postop changes noted to the cervical spine. Patient is post medi an sternotomy. IMPRESSION: Interval extubation, right upper lobe atelectasis, interval NG tube removal.
[2017-10-25 10:14] LABS: Glucose,Whole Blood 96 mg/dL (75-99)
[2017-10-25 11:11] VITALS: BMI 32.8
--- NOTE | 2017-10-25 12:25 | PN ---
PROGRESS NOTE Mr. Page is a 47-year-old male who presented with myocardial infarction, underwent coronary artery bypass grafting yesterday with a NUÑEZ to the LAD, saphenous vein graft to the PDA and to the left circumflex. He is extubated, complaining of chest wall tenderness. He is in sinus mechanism, hemodynamically stable. He has no evidence of tachyarrhythmia. He has continued to be on aspirin once a day, Lipitor 40 mg daily, Plavix 75 mg daily, and metoprolol tartrate 12.5 mg twice a day. PHYSICAL EXAMINATION: Blood pressure 111/50 with a heart rate 70. Lungs with mild decreased air exchange. No wheezes. HEART: Regular rate and rhythm S1, S2. No S3. No rub appreciated. ABDOMEN: Soft, nontender. EXTREMITIES: No edema. His chest x-ray showed a right upper lobe atelectasis. IMPRESSION: 1. Status post bypass grafting. 2. Chronic pain. 3. Atelectasis, right upper lobe. 4. Prior history of smoking. 5. Hyperlipidemia. RECOMMENDATION: Will continue incentive spirometry. Increase level of activity. Continue the beta yaakov and the statin in addition to the aspirin. Depending on his progress, further recommendation will be made. MMODL / IJN: [id number] /
[2017-10-25] MEDS ORDERED: IPRATROPIUM-ALBUTEROL 3 ML NEB INHALATION PRN (14:06)
[2017-10-25] MEDS ORDERED: BISACODYL 10 MG SUPP RECTAL PRN (14:06)
[2017-10-25] MEDS ORDERED: MAGNESIUM HYDROXIDE 2,400 MG/10 ML CUP PO PRN (14:06)
[2017-10-25] MEDS: LACTATED RINGERS 1,000 ML IV SCH (15:57)
[2017-10-25] MEDS: hydrALAZINE HCL 20 MG/ML 1 ML VIAL IVP PRN ×3 (16:22→22:56)
[2017-10-25] MEDS ORDERED: MORPHINE SULFATE 4MG/4ML SYRG ONE (16:35)
--- NOTE | 2017-10-25 17:16 | P.PN ---
Subjective Progress Note Date: 10/25/17 Progress note being dictated for Dr. Cooley. Interval history:Patient is a 47-year-old male with a known history of substance abuse currently on Suboxone, active cigarette smoking was initially presented to [facility] with complaints of chest pain and shortness of breath while driving and is about to pass out. Patient withdrew to the side and EMS was called. Chest pain is mainly left retrosternal, 10 x 10 severity squeezing-like pain radiating to the neck and associated with shortness of breath and sweating. Patient also has nausea. No episodes of vomiting. Patient was found have ST-T wave changes and was initially taken to [facility]. Initial troponin was negative at 0.017. Troponin was trending up to 0.1 and 0.5 and 1.060. Patient was given a dose of Lovenox at [facility]. After evaluation by cardiology and increasing troponin level and EKG changes with ST elevation patient was eventually transferred to [facility] for immediate cardiac catheterization. Patient was started on heparin drip. Patient has been having hot and cold flashes and sweating for the past 2 weeks and also exertional shortness of breath for the past 2 weeks. Patient is not any medications for hyperlipidemia at home. Patient's father had coronary artery disease/ID at age 70. Patient denied any recent illnesses or sick contacts. Cardiac catheterization showed Diffuse coronary artery disease with a 60-70% ostial stenosis of the left main, total occlusion of the mid LAD and critical lesion involving the distal RCA. There are collaterals from the right to the left anterior descending Due to severe coronary artery disease, and left main CAD, CT surgery was consulted to evaluate for bypass graft. 10/22/2017 having intermittent episodes of midsternal nonradiating chest pain, currently chest pain-free. Telemetry sinus bradycardia. Anticoagulated on heparin drip. Evaluated by cardiothoracic surgery with CABG recommended, pending schedule. Echo reporting normal LV function, EF 55-60%.. 10/23/2017 continues to have recurrent chest pain states throughout the night and this morning. Reports nonradiating, midsternal. Denies nausea, vomiting. Scheduled for CABG tomorrow. 10/24/2017 Review systems unable to obtain as patient sedated and on mechanical ventilation Active Medications Generic Name Dose Route Start Last Admin Trade Name Freq PRN Reason Stop Dose Admin Hydrocodone Bitart/Acetaminophen 2 each 10/25/17 23:59 [place] 5-325 PO Q4HR PRN Severe Pain Hydrocodone Bitart/Acetaminophen 1 each 10/25/17 23:59 [place] 5-325 PO Q4HR PRN Moderate Pain Albuterol/Ipratropium 3 ml 10/24/17 16:00 10/24/17 15:05 Duoneb 0.5 Mg-3 Mg/3 Ml Soln INHALATION 3 ml RT-Q4H [facility] Administration Albuterol/Ipratropium 3 ml 10/25/17 14:06 Duoneb 0.5 Mg-3 Mg/3 Ml Soln INHALATION RT-Q2H PRN Shortness Of Breath Or Wheezing Albuterol/Ipratropium 3 ml 10/25/17 14:06 Duoneb 0.5 Mg-3 Mg/3 Ml Soln INHALATION RT-QID [facility] Aspirin 325 mg 10/25/17 09:00 Aspirin PO DAILY [facility] Atorvastatin Calcium 40 mg 10/25/17 09:00 Lipitor PO DAILY [facility] Benzocaine/Menthol 1 each 10/24/17 14:09 Cepacol Lozenge MUCOUS MEM Q2H PRN Sore Throat Bisacodyl 10 mg 10/25/17 14:06 Dulcolax RECTAL DAILY PRN Constipation Cefazolin Sodium 2 gm 10/24/17 16:00 10/24/17 16:12 Kefzol IVP 10/25/17 08:01 2 gm Q8HR [facility] Administration Clopidogrel Bisulfate 75 mg 10/25/17 09:00 Plavix PO DAILY [facility] Heparin Sodium (Porcine) 5,000 unit 10/24/17 22:06 Heparin SQ Q8HR [facility] Hydralazine HCl 10 mg 10/24/17 14:36 Apresoline IVP Q1HR PRN Blood Pressure - High Acetaminophen 1,000 mg/ IV 100 mls @ 400 mls/hr 10/24/17 18:00 10/24/17 18:11 Solution IVPB 10/25/17 18:01 400 mls/hr Q6HR [facility] Administration Albumin Human 250 ml/ IV 250 mls @ 250 mls/hr 10/24/17 14:09 Solution IVPB 10/26/17 14:10 Q1HR PRN For Volume Calcium Gluconate 2,000 mg/ 120 mls @ 100 mls/hr 10/24/17 14:09 Sodium Chloride IVPB 10/25/17 14:10 ONCE PRN Ionized Calcium less than 4.4 Clevidipine 25 mg/ IV Solution 50 mls @ 2 mls/hr 10/24/17 14:09 10/24/17 18: 24 IV 0 mg/hr .Q24H [facility] 0 mls/hr Protocol Titration 1 MG/HR Lactated Ringer's 1,000 mls @ 50 mls/hr 10/24/17 14:09 10/24/17 14:00 Lactated Ringers IV 50 mls/hr .Q20H [facility] Administration Nitroglycerin/Dextrose 50 mg/ 250 mls @ 1.5 mls/hr 10/24/17 14:09 10/24/17 14 :00 IV Solution IV 5 mcg/min .Q24H [facility] 1.5 mls/hr 5 MCG/MIN Administration Insulin Human Regular 100 unit 101 mls @ 0 mls/hr 10/24/17 14:15 10/24/17 18: 00 / Sodium Chloride IV 1 unit/hr .Q0M [facility] 1.01 mls/hr Protocol Titration Per Protocol Dexmedetomidine HCl 400 mcg/ 104 mls @ 0 mls/hr 10/24/17 15:45 10/24/17 16:20 Sodium Chloride IV 10/25/17 15:36 0.47 mcg/kg/hr .Q0M [facility] 11.9 mls/hr Protocol Administration Titrate Ketorolac Tromethamine 15 mg 10/24/17 18:00 10/24/17 18:12 Toradol IVP 10/28/17 15:24 15 mg Q6HR [facility] Administration Magnesium Hydroxide 2,400 mg 10/25/17 14:06 Milk Of Magnesia PO BID PRN Constipation Metoclopramide HCl 10 mg 10/24/17 14:09 Reglan IVP Q4H PRN Nausea And Vomiting Metoprolol Tartrate 12.5 mg 10/25/17 09:00 Lopressor PO BID [facility] Miscellaneous Information 1 each 10/24/17 14:09 Magnesium Per Protocol MISCELLANE DAILY PRN Per Protocol Protocol Miscellaneous Information 1 each 10/24/17 14:09 Phosphorus Per Protocol MISCELLANE DAILY PRN Per Protocol Protocol Miscellaneous Information 1 each 10/24/17 14:09 Potassium Per Protocol MISCELLANE DAILY PRN Per Protocol Protocol Morphine Sulfate 2 mg 10/24/17 14:09 10/24/17 15:39 Morphine Sulfate (Inj) IVP 2 mg Q2H PRN Administration Severe Pain Ondansetron HCl 4 mg 10/24/17 14:09 Zofran IVP Q6HR PRN Nausea And Vomiting Oxycodone HCl 10 mg 10/24/17 14:09 Oxyir PO 10/25/17 23:58 Q4H PRN Severe Pain Oxycodone HCl 5 mg 10/24/17 14:09 Oxyir PO 10/25/17 23:58 Q4H PRN Moderate Pain Pantoprazole Sodium 40 mg 10/25/17 09:00 Protonix IVP DAILY [facility] Senna/Docusate Sodium 2 each 10/25/17 21:00 Senokot-S PO HS [facility] Sodium Chloride 10 ml 10/24/17 21:00 Saline Flush IV BID [facility] 10/25/2017 status post CABG, postop day #1 .extubated early this morning, maintaining sats on high 90s on on 2 L nasal cannula. [place] discontinued. Chest x-ray reporting right upper lobe atelectatic changes. Continues on beta yaakov , aspirin, statin. Incentive spirometer currently at 500. Objective - Vital Signs Vital signs: Vital Signs Temp 98.7 F 10/25/17 12:00 Pulse 97 10/25/17 17:00 Resp 22 10/25/17 17:00 BP 107/65 10/24/17 06:00 Pulse Ox 92 L 10/25/17 17:00 Intake & Output 10/24/17 10/25/17 10/25/17 18:59 06:59 18:59 Intake Total 531.628 954.720 402 Output Total 5235 1245 1225 Balance -4703.372 -290.280 -823 Weight 95.2 kg 95.2 kg Intake: IV 483 828 402 Cardiac Output (0.9 80 120 20 Sodium Chloride) Lactated Ringers 1,000 ml 250 600 310 @ 20 mls/hr IV .Q24H [facility] Rx#:[id number] Pressure Bag (0.9 Sodium 45 108 72 Chloride) Sodium Chloride 0.9% 1, 75 000 ml @ 75 mls/hr IV . [id number] [facility] Rx#:[id number] Intake, IV Titration 48.628 126.720 Amount Clevidipine Butyrate 25 46.734 6.149 mg In Empty Bag 1 bag @ 1 MG/HR 2 mls/hr IV .Q24H [facility] Rx#:[id number] Dexmedetomidine 400 mcg 114.922 In Sodium Chloride 0.9% 100 ml @ Titrate IV .Q0M [facility] Rx#:[id number] Insulin Regular 100 unit 1.894 5.649 In Sodium Chloride 0.9% 100 ml @ Per Protocol IV .Q0M [facility] Rx#:[id number] Output: Chest Tube Drainage 570 270 180 Chest Tube Left Pleural/ 570 270 180 Mediastinal Urine 3665 975 1045 Estimated Blood Loss 1000 Other: Voiding Method Indwelling Catheter Indwelling Catheter Indwelling Catheter ABP, PAP, CO, CI - Last Documented Arterial Blood Pressure 152/69 Pulmonary Artery Pressure 39/18 Cardiac Output 5.7 Cardiac Index 2.8 - Exam Patient is sitting up in chair comfortably, no acute distress, awake alert and oriented. HEENT: Normocephalic. Neck is supple. Pupils reactive. Nostrils clear. Oral mucosa moist Neck reveals no JVD, carotid bruits, or thyromegaly. CHEST EXAMINATION: Diminished bilaterally, no wheezes, rhonchi or crackles, mediastinal and left pleural chest tubes present. CARDIAC: Normal S1, S2 with no gallops, rubs. No murmurs ABDOMEN: Soft. Bowel sounds normal. No organomegaly. Extremities: reveal no edema. No clubbing or cyanosis Neurologically awake, alert, oriented x3 with well-coordinated movements. No focal deficits noted Skin: No rash or skin lesions. Musculoskeletal: No joint swelling or deformity. Normal range of motion. - Labs CBC & Chem 7: 10/25/17 04:15 10/25/17 04:15 Labs: Abnormal Lab Results - Last 24 Hours (Table) 10/23/17 10/24/17 10/24/17 Range/Units 04:30 17:14 17:15 WBC 13.7 H (3.8-10.6) k/uL Neutrophils # (Manual) 11.60 H (1.3-7.7) k/uL Myelocytes # (Manual) 0.27 H (0) k/uL INR (<1.2) ABG Total CO2 (19-24) mmol/L ABG O2 Saturation (94-97) % Creatinine (0.66-1.25) mg/dL Glucose (74-99) mg/dL POC Glucose (mg/dL) 117 H (75-99) mg/dL AST (17-59) U/L Total Protein (6.3-8.2) g/dL Crossmatch See Detail 10/24/17 10/24/17 10/24/17 Range/Units 18:01 19:10 20:11 WBC (3.8-10.6) k/uL Neutrophils # (Manual) (1.3-7.7) k/uL Myelocytes # (Manual) (0) k/uL INR (<1.2) ABG Total CO2 (19-24) mmol/L ABG O2 Saturation (94-97) % Creatinine (0.66-1.25) mg/dL Glucose (74-99) mg/dL POC Glucose (mg/dL) 125 H 119 H 125 H (75-99) mg/dL AST (17-59) U/L Total Protein (6.3-8.2) g/dL Crossmatch 10/24/17 10/24/17 10/24/17 Range/Units 20:13 21:02 22:12 WBC 14.1 H (3.8-10.6) k/uL Neutrophils # (Manual) 11.90 H (1.3-7.7) k/uL Myelocytes # (Manual) (0) k/uL INR (<1.2) ABG Total CO2 (19-24) mmol/L ABG O2 Saturation (94-97) % Creatinine (0.66-1.25) mg/dL Glucose (74-99) mg/dL POC Glucose (mg/dL) 119 H 127 H (75-99) mg/dL AST (17-59) U/L Total Protein (6.3-8.2) g/dL Crossmatch 10/24/17 10/25/17 10/25/17 Range/Units 23:18 00:05 01:03 WBC (3.8-10.6) k/uL Neutrophils # (Manual) (1.3-7.7) k/uL Myelocytes # (Manual) (0) k/uL INR (<1.2) ABG Total CO2 (19-24) mmol/L ABG O2 Saturation (94-97) % Creatinine (0.66-1.25) mg/dL Glucose (74-99) mg/dL POC Glucose (mg/dL) 116 H 119 H 116 H (75-99) mg/dL AST (17-59) U/L Total Protein (6.3-8.2) g/dL Crossmatch 10/25/17 10/25/17 10/25/17 Range/Units 02:01 02:50 03:17 WBC (3.8-10.6) k/uL Neutrophils # (Manual) (1.3-7.7) k/uL Myelocytes # (Manual) (0) k/uL INR (<1.2) ABG Total CO2 25 H (19-24) mmol/L ABG O2 Saturation 97.9 H (94-97) % Creatinine (0.66-1.25) mg/dL Glucose (74-99) mg/dL POC Glucose (mg/dL) 108 H 114 H (75-99) mg/dL AST (17-59) U/L Total Protein (6.3-8.2) g/dL Crossmatch 10/25/17 10/25/17 10/25/17 Range/Units 04:13 04:15 04:15 WBC 11.1 H (3.8-10.6) k/uL Neutrophils # (Manual) 8.77 H (1.3-7.7) k/uL Myelocytes # (Manual) (0) k/uL INR 1.2 H (<1.2) ABG Total CO2 (19-24) mmol/L ABG O2 Saturation (94-97) % Creatinine (0.66-1.25) mg/dL Glucose (74-99) mg/dL POC Glucose (mg/dL) 117 H (75-99) mg/dL AST (17-59) U/L Total Protein (6.3-8.2) g/dL Crossmatch 10/25/17 10/25/17 10/25/17 Range/Units 04:15 06:07 08:03 WBC (3.8-10.6) k/uL Neutrophils # (Manual) (1.3-7.7) k/uL Myelocytes # (Manual) (0) k/uL INR (<1.2) ABG Total CO2 (19-24) mmol/L ABG O2 Saturation (94-97) % Creatinine 0.60 L (0.66-1.25) mg/dL Glucose 117 H (74-99) mg/dL POC Glucose (mg/dL) 105 H 108 H (75-99) mg/dL AST 68 H (17-59) U/L Total Protein 6.0 L (6.3-8.2) g/dL Crossmatch Assessment and Plan Assessment: Acute Non-ST elevated ID status post cardiac catheterization showing multivessel disease including left main. Status post CABG Asymptomatic bradycardia with heart rate in 50s. Hyperlipidemia with LDL 169 Exertional shortness of breath for the past 2 weeks Nicotine addiction Substance abuse currently on Suboxone -Postoperative atelectasis Plan: Continue on current medication regime ,monitoring and symptomatic treatment. Aggressive pulmonary toileting with incentive spirometer reinforced. Increase ambulation as tolerated. The impression and plan of care has been dictated as directed. : I performed a history and examination of this patient, discussed the same with the dictator. I agree with the dictator's note ,documented as a scribe. Any additional findings or plans will be noted.
[2017-10-25] MEDS: INSULIN ASPART 100 UNIT/ML 1 ML 10 ML VIAL SQ SCH ×2 (17:50→22:00)
[2017-10-25 17:52] LABS: Glucose,Whole Blood 126 mg/dL (75-99)
[2017-10-25 20:45] LABS: Glucose,Whole Blood 197 mg/dL (75-99)
[2017-10-25] MEDS: SENNOSIDES-DOCUSATE SODIUM 1 EACH TAB PO SCH (20:57)
[2017-10-25 23:34] LABS: Glucose,Whole Blood 108 mg/dL (75-99)
[2017-10-25] MEDS ORDERED: HYDROcodone/APAP 5-325MG 1 EACH TAB PO PRN ×2 (23:59)
[2017-10-26] MEDS: MORPHINE SULFATE 4MG/4ML SYRG IVP PRN ×2 (00:20→05:10)
[2017-10-26] MEDS: hydrALAZINE HCL 20 MG/ML 1 ML VIAL IVP PRN ×2 (00:24→03:27)
[2017-10-26 04:38] LABS: Ionized Calcium 4.9 mg/dL (4.5-5.3)
[2017-10-26 04:52] LABS: ALT 39 U/L (21-72); AST 52 U/L (17-59); Alkaline Phosphatase 50 U/L (38-126); Anion Gap 14 mmol/L; Blood Urea Nitrogen 10 mg/dL (9-20); Calcium 9.2 mg/dL (8.4-10.2); Carbon Dioxide 22 mmol/L (22-30); Chloride 106 mmol/L (98-107); Glucose 119 mg/dL (74-99); Magnesium 1.7 mg/dL (1.6-2.3); Potassium 3.7 mmol/L (3.5-5.1); Sodium 142 mmol/L (137-145); Total Bilirubin 0.8 mg/dL (0.2-1.3); Total Protein 6.3 g/dL (6.3-8.2)
[2017-10-26 04:53] LABS: HCT 43.3 % (39.0-53.0); HGB 14.6 gm/dL (13.0-17.5); MCHC 33.7 g/dL (31.0-37.0); MCV 89.2 fL (80.0-100.0); Mean Platelet Volume 7.9; Platelet Count 192 k/uL (150-450); RBC 4.85 m/uL (4.30-5.90); RDW 14.3 % (11.5-15.5); WBC 13.3 k/uL (3.8-10.6)
[2017-10-26 05:12] LABS: Monocytes # (M) 1.46 k/uL (0-1.0); Neutrophils # (M) 9.84 k/uL (1.3-7.7); Neutrophils % (M) 74 %; Nucleated Red Blood Cells 0 /100 WBC (0-0); Total Cells Counted 100
[2017-10-26] MEDS ORDERED: POTASSIUM CHLORIDE ER 20 MEQ TAB.ER PO SCH (06:00)
[2017-10-26] MEDS: MAGNESIUM SULFATE-D5W PMX 1 GM in DEXTROSE/WATER 1 100ML.BAG IVPB SCH ×2 (06:07→08:15)
[2017-10-26] MEDS: KETOROLAC 30 MG/ML 1 ML VIAL IVP SCH ×4 (06:07→23:14)
[2017-10-26 07:35] LABS: Glucose,Whole Blood 135 mg/dL (75-99)
[2017-10-26] MEDS: IPRATROPIUM-ALBUTEROL 3 ML NEB INHALATION SCH ×4 (07:46→19:48)
[2017-10-26] MEDS: HYDROcodone/APAP 7.5-325MG 1 EACH TAB PO PRN ×3 (07:46→23:17)
[2017-10-26] MEDS: INSULIN ASPART 100 UNIT/ML 1 ML 10 ML VIAL SQ SCH ×4 (07:48→22:13)
[2017-10-26] MEDS: HEPARIN SODIUM,PORCINE 5,000 UNIT/ML 1 ML VIAL SQ SCH ×3 (08:15→23:15)
[2017-10-26] MEDS: METOPROLOL TARTRATE 12.5 MG TAB PO SCH (08:15)
[2017-10-26] MEDS: PANTOPRAZOLE 40 MG TABLET PO SCH (08:15)
[2017-10-26] MEDS: ASPIRIN 325 MG TAB PO SCH (08:15)
[2017-10-26] MEDS: ATORVASTATIN 40 MG TAB PO SCH (08:15)
[2017-10-26] MEDS: CLOPIDOGREL 75 MG TAB PO SCH (08:16)
--- NOTE | 2017-10-26 08:43 | XR ---
EXAMINATION TYPE: XR chest 1V portable DATE OF EXAM: 10/26/2017 COMPARISON: Prior chest x-ray 10/25/2017 HISTORY: Chest tube, postop cardiac surgery TECHNIQUE: Single frontal view of the chest is obtained. FINDINGS: There is been some interval improvement in aeration in the right upper lobe. Right jugular central venous sheath is in place, Cochrane-Santos catheter has been removed. Left chest tube remains in p lace, patient is post median sternotomy, postop changes noted to the cervical thoracic spine as on pr ior. There are overlying cardiac leads. Patchy density is present at the left lung base. Right hemidi aphragm somewhat elevated. Heart size is stable. IMPRESSION: There is some interval improvement in aeration in the right upper lobe. Residual atelect atic changes are present however. Additional follow-up is recommended.
--- NOTE | 2017-10-26 11:11 | PN ---
PROGRESS NOTE Mr. Page is a 47-year-old male, status post coronary artery bypass grafting, history of chronic pain. He is complaining of some discomfort in the chest related to his incision. Otherwise, he is feeling well. He is denying any change in his breathing. No dizziness. No palpitation. Continues to be in sinus mechanism. He continues to be on aspirin once a day, Lipitor 40 mg daily, Plavix 75 mg daily, metoprolol tartrate 25 mg twice a day. PHYSICAL EXAMINATION: Blood pressure 120/70 with the heart rate in the 90s. LUNGS: With mild decrease in breath sounds. No wheezes. HEART: Regular rate and rhythm, S1, S2. No S3. No rub appreciated. ABDOMEN: Soft, nontender. EXTREMITIES: No edema. LAB DATA: Lab data revealed BUN and creatinine of 10 and 0.64, potassium 3.7, hemoglobin 14.6. IMPRESSION: 1. Status post coronary artery bypass grafting, stable. 2. History of chronic pain, stable. 3. Prior history of smoking. RECOMMENDATION: He will continue on present therapy. Increase incentive spirometry. Increase level of activity. MMODL / IJN: [id number] /
[2017-10-26 12:23] LABS: Glucose,Whole Blood 94 mg/dL (75-99)
--- NOTE | 2017-10-26 12:59 | P.PN ---
Subjective Progress Note Date: 10/26/17 Principal diagnosis: Diffuse coronary artery disease with 60-70% ostial stenosis of the left main, total occlusion of the mid LAD and critical lesion involving the distal RCA. Non-STEMI. Preoperative bradycardia. Current tobacco dependence with preoperative FEV1 96% of predicted. History of prescription drug abuse currently on Suboxone. History of syncope History of remote alcohol abuse. History of hyperlipidemia. History of marijuana use. Family history of coronary artery disease. POD #2 urgent coronary artery bypass grafting 3 vessels with placement of his left internal mammary artery to his left anterior descending coronary artery, reverse greater saphenous vein graft off the aorta to the posterior descending coronary artery, reverse greater saphenous vein graft to the circumflex coronary artery, endoscopic vein harvesting and intraoperative transesophageal echocardiogram. Patient currently up in the chair in no acute distress. Does complain of sternal pain and pain at chest tube insertion sites. Does not want to take deep breaths. Objective - Vital Signs Vital signs: Vital Signs Temp 97.7 F 10/26/17 12:00 Pulse 85 10/26/17 12:00 Resp 20 10/26/17 12:00 BP 131/84 10/26/17 12:00 Pulse Ox 95 10/26/17 12:00 Intake & Output 10/25/17 10/26/17 10/26/17 18:59 06:59 18:59 Intake Total 678 1992 210 Output Total 1355 1750 395 Balance -677 242 -185 Weight 95.2 kg 90.8 kg 90.8 kg Intake: IV 428 312 110 Cardiac Output (0.9 20 Sodium Chloride) Lactated Ringers 1,000 ml 330 240 80 @ 20 mls/hr IV .Q24H [facility] Rx#:[id number] Pressure Bag (0.9 Sodium 78 72 30 Chloride) Intake, IV Titration 250 0 100 Amount ACETAMINOPHEN IV (For NPO 250 ) 1,000 mg In Empty Bag 1 bag @ 400 mls/hr IVPB Q6HR [facility] Rx#:[id number] Clevidipine Butyrate 25 0 mg In Empty Bag 1 bag @ 1 MG/HR 2 mls/hr IV .Q24H [facility] Rx#:[id number] Magnesium Sulfate-D5w Pmx 100 1 gm In Dextrose/Water 1 100ml.bag @ 100 mls/hr IVPB Q1H [facility] Rx#: [id number] Oral 1680 Output: Chest Tube Drainage 190 200 60 Chest Tube Left Pleural/ 190 200 60 Mediastinal Urine 1165 1550 335 Other: Voiding Method Indwelling Catheter Indwelling Catheter Indwelling Catheter # Bowel Movements 0 0 ABP, PAP, CO, CI - Last Documented Arterial Blood Pressure 131/67 Pulmonary Artery Pressure 39/18 Cardiac Output 5.7 Cardiac Index 2.8 - Constitutional General appearance: Present: cooperative, no acute distress - Respiratory Details: Lungs sounds diminished bilaterally. Respirations even, nonlabored. Currently on 2 L nasal cannula with oxygen saturations 98%. Able to achieve 1000 on his incentive spirometry. Mediastinal/left pleural chest tube to continuous wall suction, 60 mL serous drainage overnight, 250 mL in the last 24 hours, no air leak present. - Cardiovascular Details: Telemetry. Sternum stable. Ventricular epicardial pacemaker wires present, grounded. Palpable peripheral pulses bilaterally. No edema present. No calf pain or tenderness noted. Right internal jugular Cordis, left radial arterial line present. Heart hugger in place with patient demonstrating appropriate use. Antiembolism stockings, SCDs present. - Gastrointestinal Gastrointestinal Comment(s): Abdomen soft, nontender, nondistended. Active bowel sounds 4 quadrants. Tolerating diet. - Genitourinary Genitourinary Comment(s): Gooden present draining clear, yellow urine. Output 75-200 mL/h overnight. - Integumentary Integumentary Comment(s): Skin is warm and dry with evidence of good perfusion. Anterior chest incision well approximated and covered with dry intact dressing. Left lower extremity EVH site well approximated - Neurologic Neurologic: Present: CNII-XII intact - Musculoskeletal Musculoskeletal: Present: gait normal, strength equal bilaterally - Psychiatric Psychiatric: Present: A&O x's 3, appropriate affect, intact judgment & insight - Allied health notes Allied health notes reviewed: nursing - Labs CBC & Chem 7: 10/26/17 04:14 10/26/17 04:14 Labs: Abnormal Lab Results - Last 24 Hours (Table) 10/25/17 10/25/17 10/25/17 Range/Units 17:50 20:41 23:32 WBC (3.8-10.6) k/uL Neutrophils # (Manual) (1.3-7.7) k/uL Monocytes # (Manual) (0-1.0) k/uL Creatinine (0.66-1.25) mg/dL Glucose (74-99) mg/dL POC Glucose (mg/dL) 126 H 197 H 108 H (75-99) mg/dL 10/26/17 10/26/17 10/26/17 Range/Units 04:14 04:14 07:32 WBC 13.3 H (3.8-10.6) k/uL Neutrophils # (Manual) 9.84 H (1.3-7.7) k/uL Monocytes # (Manual) 1.46 H (0-1.0) k/uL Creatinine 0.64 L (0.66-1.25) mg/dL Glucose 119 H (74-99) mg/dL POC Glucose (mg/dL) 135 H (75-99) mg/dL - Imaging and Cardiology Chest x-ray: report reviewed, image reviewed Assessment and Plan (1) Hyperlipidemia Current Visit: Yes Status: Chronic Code(s): E78.5 - HYPERLIPIDEMIA, UNSPECIFIED SNOMED Code(s): 45340854 (2) History of ETOH abuse Current Visit: No Status: Resolved Code(s): Z87.898 - PERSONAL HISTORY OF OTHER SPECIFIED CONDITIONS SNOMED Code(s): 508172187 (3) Marijuana use, episodic Current Visit: Yes Status: Chronic Code(s): F12.90 - CANNABIS USE, UNSPECIFIED, UNCOMPLICATED SNOMED Code(s): 119839323 (4) History of prescription drug abuse Current Visit: No Status: Resolved Code(s): F19.21 - OTHER PSYCHOACTIVE SUBSTANCE DEPENDENCE, IN REMISSION SNOMED Code(s): 734572160 (5) Nicotine dependence Current Visit: Yes Status: Chronic Code(s): F17.200 - NICOTINE DEPENDENCE, UNSPECIFIED, UNCOMPLICATED SNOMED Code(s): 10639308 (6) ST elevation myocardial infarction (STEMI) Current Visit: Yes Status: Acute Code(s): I21.3 - ST ELEVATION (STEMI) MYOCARDIAL INFARCTION OF [facility] SITE SNOMED Code(s): 058438230 (7) Sinus bradycardia Current Visit: Yes Status: Chronic Code(s): R00.1 - BRADYCARDIA, UNSPECIFIED SNOMED Code(s): 49315893 Plan: 1. Continue aspirin, statin, Plavix, beta yaakov. Will increase beta yaakov as tolerated. 2. Wean O2 as tolerated. Encourage incentive spirometry use 10 times every hour. Continued smoking cessation strongly encouraged. 3. Will discontinue chest tubes, Gooden, arterial line, Cordis. Discontinue epicardial pacemaker wires, patient to remain on bedrest for 1 hour post- removal. 4. Will monitor daily labs and x-rays. 5. GI/DVT prophylaxis. 6. Pain control with ordered medications. 7. Diabetic management per primary care service. 8. Increase activity, ambulate in hallway. PT/OT/chronic rehab following. 9. We'll transfer out of 6 E. selective care today. 10. More recommendations to follow. Time with Patient: Greater than 30
[2017-10-26] MEDS: LACTATED RINGERS 1,000 ML IV SCH (15:42)
[2017-10-26] MEDS: CLEVIDIPINE BUTYRATE 25 MG in EMPTY BAG 1 BAG IV SCH (15:42)
[2017-10-26 16:55] LABS: Glucose,Whole Blood 96 mg/dL (75-99)
[2017-10-26] MEDS: METOPROLOL TARTRATE 25 MG TAB PO SCH (20:25)
[2017-10-26] MEDS: SENNOSIDES-DOCUSATE SODIUM 1 EACH TAB PO SCH (20:25)
[2017-10-26 21:06] LABS: Glucose,Whole Blood 113 mg/dL (75-99)
--- NOTE | 2017-10-26 21:15 | P.PN ---
Subjective Progress Note Date: 10/26/17 Progress note being dictated for Dr. Cooley. Interval history:Patient is a 47-year-old male with a known history of substance abuse currently on Suboxone, active cigarette smoking was initially presented to [facility] with complaints of chest pain and shortness of breath while driving and is about to pass out. Patient withdrew to the side and EMS was called. Chest pain is mainly left retrosternal, 10 x 10 severity squeezing-like pain radiating to the neck and associated with shortness of breath and sweating. Patient also has nausea. No episodes of vomiting. Patient was found have ST-T wave changes and was initially taken to [facility]. Initial troponin was negative at 0.017. Troponin was trending up to 0.1 and 0.5 and 1.060. Patient was given a dose of Lovenox at [facility]. After evaluation by cardiology and increasing troponin level and EKG changes with ST elevation patient was eventually transferred to [facility] for immediate cardiac catheterization. Patient was started on heparin drip. Patient has been having hot and cold flashes and sweating for the past 2 weeks and also exertional shortness of breath for the past 2 weeks. Patient is not any medications for hyperlipidemia at home. Patient's father had coronary artery disease/[place] at age 70. Patient denied any recent illnesses or sick contacts. Cardiac catheterization showed Diffuse coronary artery disease with a 60-70% ostial stenosis of the left main, total occlusion of the mid LAD and critical lesion involving the distal RCA. There are collaterals from the right to the left anterior descending Due to severe coronary artery disease, and left main CAD, CT surgery was consulted to evaluate for bypass graft. 10/22/2017 having intermittent episodes of midsternal nonradiating chest pain, currently chest pain-free. Telemetry sinus bradycardia. Anticoagulated on heparin drip. Evaluated by cardiothoracic surgery with CABG recommended, pending schedule. Echo reporting normal LV function, EF 55-60%.. 10/23/2017 continues to have recurrent chest pain states throughout the night and this morning. Reports nonradiating, midsternal. Denies nausea, vomiting. Scheduled for CABG tomorrow. 10/24/2017 Review systems unable to obtain as patient sedated and on mechanical ventilation Active Medications Generic Name Dose Route Start Last Admin Trade Name Freq PRN Reason Stop Dose Admin Hydrocodone Bitart/Acetaminophen 2 each 10/25/17 23:59 Willis 5-325 PO Q4HR PRN Severe Pain Hydrocodone Bitart/Acetaminophen 1 each 10/25/17 23:59 Willis 5-325 PO Q4HR PRN Moderate Pain Albuterol/Ipratropium 3 ml 10/24/17 16:00 10/24/17 15:05 Duoneb 0.5 Mg-3 Mg/3 Ml Soln INHALATION 3 ml RT-Q4H [facility] Administration Albuterol/Ipratropium 3 ml 10/25/17 14:06 Duoneb 0.5 Mg-3 Mg/3 Ml Soln INHALATION RT-Q2H PRN Shortness Of Breath Or Wheezing Albuterol/Ipratropium 3 ml 10/25/17 14:06 Duoneb 0.5 Mg-3 Mg/3 Ml Soln INHALATION RT-QID [facility] Aspirin 325 mg 10/25/17 09:00 Aspirin PO DAILY [facility] Atorvastatin Calcium 40 mg 10/25/17 09:00 Lipitor PO DAILY [facility] Benzocaine/Menthol 1 each 10/24/17 14:09 Cepacol Lozenge MUCOUS MEM Q2H PRN Sore Throat Bisacodyl 10 mg 10/25/17 14:06 Dulcolax RECTAL DAILY PRN Constipation Cefazolin Sodium 2 gm 10/24/17 16:00 10/24/17 16:12 Kefzol IVP 10/25/17 08:01 2 gm Q8HR [facility] Administration Clopidogrel Bisulfate 75 mg 10/25/17 09:00 Plavix PO DAILY [facility] Heparin Sodium (Porcine) 5,000 unit 10/24/17 22:06 Heparin SQ Q8HR [facility] Hydralazine HCl 10 mg 10/24/17 14:36 Apresoline IVP Q1HR PRN Blood Pressure - High Acetaminophen 1,000 mg/ IV 100 mls @ 400 mls/hr 10/24/17 18:00 10/24/17 18:11 Solution IVPB 10/25/17 18:01 400 mls/hr Q6HR [facility] Administration Albumin Human 250 ml/ IV 250 mls @ 250 mls/hr 10/24/17 14:09 Solution IVPB 10/26/17 14:10 Q1HR PRN For Volume Calcium Gluconate 2,000 mg/ 120 mls @ 100 mls/hr 10/24/17 14:09 Sodium Chloride IVPB 10/25/17 14:10 ONCE PRN Ionized Calcium less than 4.4 Clevidipine 25 mg/ IV Solution 50 mls @ 2 mls/hr 10/24/17 14:09 10/24/17 18: 24 IV 0 mg/hr .Q24H [facility] 0 mls/hr Protocol Titration 1 MG/HR Lactated Ringer's 1,000 mls @ 50 mls/hr 10/24/17 14:09 10/24/17 14:00 Lactated Ringers IV 50 mls/hr .Q20H [facility] Administration Nitroglycerin/Dextrose 50 mg/ 250 mls @ 1.5 mls/hr 10/24/17 14:09 10/24/17 14 :00 IV Solution IV 5 mcg/min .Q24H [facility] 1.5 mls/hr 5 MCG/MIN Administration Insulin Human Regular 100 unit 101 mls @ 0 mls/hr 10/24/17 14:15 10/24/17 18: 00 / Sodium Chloride IV 1 unit/hr .Q0M [facility] 1.01 mls/hr Protocol Titration Per Protocol Dexmedetomidine HCl 400 mcg/ 104 mls @ 0 mls/hr 10/24/17 15:45 10/24/17 16:20 Sodium Chloride IV 10/25/17 15:36 0.47 mcg/kg/hr .Q0M [facility] 11.9 mls/hr Protocol Administration Titrate Ketorolac Tromethamine 15 mg 10/24/17 18:00 10/24/17 18:12 Toradol IVP 10/28/17 15:24 15 mg Q6HR [facility] Administration Magnesium Hydroxide 2,400 mg 10/25/17 14:06 Milk Of Magnesia PO BID PRN Constipation Metoclopramide HCl 10 mg 10/24/17 14:09 Reglan IVP Q4H PRN Nausea And Vomiting Metoprolol Tartrate 12.5 mg 10/25/17 09:00 Lopressor PO BID [facility] Miscellaneous Information 1 each 10/24/17 14:09 Magnesium Per Protocol MISCELLANE DAILY PRN Per Protocol Protocol Miscellaneous Information 1 each 10/24/17 14:09 Phosphorus Per Protocol MISCELLANE DAILY PRN Per Protocol Protocol Miscellaneous Information 1 each 10/24/17 14:09 Potassium Per Protocol MISCELLANE DAILY PRN Per Protocol Protocol Morphine Sulfate 2 mg 10/24/17 14:09 10/24/17 15:39 Morphine Sulfate (Inj) IVP 2 mg Q2H PRN Administration Severe Pain Ondansetron HCl 4 mg 10/24/17 14:09 Zofran IVP Q6HR PRN Nausea And Vomiting Oxycodone HCl 10 mg 10/24/17 14:09 Oxyir PO 10/25/17 23:58 Q4H PRN Severe Pain Oxycodone HCl 5 mg 10/24/17 14:09 Oxyir PO 10/25/17 23:58 Q4H PRN Moderate Pain Pantoprazole Sodium 40 mg 10/25/17 09:00 Protonix IVP DAILY [facility] Senna/Docusate Sodium 2 each 10/25/17 21:00 Senokot-S PO HS [facility] Sodium Chloride 10 ml 10/24/17 21:00 Saline Flush IV BID [facility] 10/25/2017 status post CABG, postop day #1 .extubated early this morning, maintaining sats on high 90s on on 2 L nasal cannula. Edmond discontinued. Chest x-ray reporting right upper lobe atelectatic changes. Continues on beta yaakov , aspirin, statin. Incentive spirometer currently at 500. 10/26/17 clean transferred out to telemetry unit. Chest tubes and Cordis discontinued. Chest x-ray reporting right upper lobe aeration with interval improvement, residual atelectatic changes. Ambulating, shallow breathing. Incentive spirometer up to 1000. Objective - Vital Signs Vital signs: Vital Signs Temp 97.9 F 10/26/17 16:00 Pulse 82 10/26/17 20:06 Resp 18 10/26/17 16:00 BP 128/80 10/26/17 16:00 Pulse Ox 96 10/26/17 16:00 Intake & Output 10/26/17 10/26/17 10/27/17 06:59 18:59 06:59 Intake Total 1991 410 Output Total 3779 9995 Balance 242 -835 Weight 90.8 kg 90.8 kg Intake: IV 312 110 Lactated Ringers 1,000 ml 240 80 @ 20 mls/hr IV .Q24H [facility] Rx#:[id number] Pressure Bag (0.9 Sodium 72 30 Chloride) Intake, IV Titration 0 100 Amount Clevidipine Butyrate 25 0 mg In Empty Bag 1 bag @ 1 MG/HR 2 mls/hr IV .Q24H [facility] Rx#:[id number] Magnesium Sulfate-D5w Pmx 100 1 gm In Dextrose/Water 1 100ml.bag @ 100 mls/hr IVPB Q1H [facility] Rx#: [id number] Oral 1680 200 Output: Chest Tube Drainage 200 60 Chest Tube Left Pleural/ 200 60 Mediastinal Urine 1550 1185 Other: Voiding Method Indwelling Catheter Urinal # Voids 1 # Bowel Movements 0 0 ABP, PAP, CO, CI - Last Documented Arterial Blood Pressure 131/67 Pulmonary Artery Pressure 39/18 Cardiac Output 5.7 Cardiac Index 2.8 - Exam Patient is sitting up in chair comfortably, no acute distress, awake alert and oriented. HEENT: Normocephalic. Neck is supple. Pupils reactive. Nostrils clear. Oral mucosa moist Neck reveals no JVD, carotid bruits, or thyromegaly. CHEST EXAMINATION: Diminished bilaterally, no wheezes, rhonchi or crackles CARDIAC: Normal S1, S2 with no gallops, rubs. No murmurs ABDOMEN: Soft. Bowel sounds normal. No organomegaly. Extremities: reveal no edema. No clubbing or cyanosis Neurologically awake, alert, oriented x3 with well-coordinated movements. No focal deficits noted Skin: No rash or skin lesions. Musculoskeletal: No joint swelling or deformity. Normal range of motion. - Labs CBC & Chem 7: 10/26/17 04:14 10/26/17 14:37 Labs: Abnormal Lab Results - Last 24 Hours (Table) 10/25/17 10/26/17 10/26/17 Range/Units 23:32 04:14 04:14 WBC 13.3 H (3.8-10.6) k/uL Neutrophils # (Manual) 9.84 H (1.3-7.7) k/uL Monocytes # (Manual) 1.46 H (0-1.0) k/uL Creatinine 0.64 L (0.66-1.25) mg/dL Glucose 119 H (74-99) mg/dL POC Glucose (mg/dL) 108 H (75-99) mg/dL 10/26/17 10/26/17 Range/Units 07:32 21:05 WBC (3.8-10.6) k/uL Neutrophils # (Manual) (1.3-7.7) k/uL Monocytes # (Manual) (0-1.0) k/uL Creatinine (0.66-1.25) mg/dL Glucose (74-99) mg/dL POC Glucose (mg/dL) 135 H 113 H (75-99) mg/dL Assessment and Plan Assessment: Acute Non-ST elevated [place] status post cardiac catheterization showing multivessel disease including left main. Status post CABG Asymptomatic bradycardia with heart rate in 50s. Hyperlipidemia with LDL 169 Exertional shortness of breath for the past 2 weeks Nicotine addiction Substance abuse currently on Suboxone -Postoperative atelectasis Plan: Continue on current medication regime ,monitoring and symptomatic treatment. Awaiting transfer out of telemetry unit. Aggressive pulmonary toileting with incentive spirometer reinforced. Increase ambulation as tolerated. The impression and plan of care has been dictated as directed. : I performed a history and examination of this patient, discussed the same with the dictator. I agree with the dictator's note ,documented as a scribe. Any additional findings or plans will be noted.
[2017-10-27] MEDS: KETOROLAC 30 MG/ML 1 ML VIAL IVP SCH ×2 (00:03→05:23)
[2017-10-27 02:24] LABS: Glucose,Whole Blood 107 mg/dL (75-99)
[2017-10-27 05:39] LABS: Glucose,Whole Blood 91 mg/dL (75-99)
[2017-10-27 06:39] LABS: HCT 43.4 % (39.0-53.0); HGB 14.3 gm/dL (13.0-17.5); MCH 30.2 pg (25.0-35.0); MCV 91.5 fL (80.0-100.0); Platelet Count 188 k/uL (150-450); RBC 4.74 m/uL (4.30-5.90); RDW 14.2 % (11.5-15.5); WBC 10.1 k/uL (3.8-10.6)
[2017-10-27] MEDS: INSULIN ASPART 100 UNIT/ML 1 ML 10 ML VIAL SQ SCH ×4 (06:43→21:26)
[2017-10-27 06:44] LABS: ALT 28 U/L (21-72); AST 30 U/L (17-59); Albumin 3.8 g/dL (3.5-5.0); Alkaline Phosphatase 47 U/L (38-126); Anion Gap 14 mmol/L; Blood Urea Nitrogen 13 mg/dL (9-20); Calcium 9.3 mg/dL (8.4-10.2); Carbon Dioxide 24 mmol/L (22-30); Chloride 105 mmol/L (98-107); Glucose 98 mg/dL (74-99); Phosphorus 4.3 mg/dL (2.5-4.5); Potassium 4.4 mmol/L (3.5-5.1); Sodium 143 mmol/L (137-145); Total Bilirubin 0.6 mg/dL (0.2-1.3); Total Protein 6.3 g/dL (6.3-8.2)
[2017-10-27] MEDS: PANTOPRAZOLE 40 MG TABLET PO SCH (06:49)
[2017-10-27] MEDS: HYDROcodone/APAP 7.5-325MG 1 EACH TAB PO PRN ×3 (06:51→18:19)
[2017-10-27 07:42] LABS: Lymphocytes # (M) 2.42 k/uL (1.0-4.8); Monocytes # (M) 1.11 k/uL (0-1.0); Neutrophils # (M) 6.36 k/uL (1.3-7.7); Neutrophils % (M) 63 %; Nucleated Red Blood Cells 0 /100 WBC (0-0); Total Cells Counted 100
[2017-10-27 07:43] LABS: Poikilocytosis (M) Present; Polychromasia Present
--- NOTE | 2017-10-27 07:44 | XR ---
EXAMINATION TYPE: XR chest 2V DATE OF EXAM: 10/27/2017 HISTORY: post cardiac surgery. REFERENCE: Previous study dated 10/26/2017. FINDINGS: There has been a previous ACDF in the lower cervical spine. The patient's left pleural drain and right internal jugular sheath have been removed. There are atelectatic changes in the right upper lobe. There is also platelike atelectasis at the lef t lung base. No definite pneumothorax is seen. The heart is mildly enlarged. No definite pleural flu id is seen. IMPRESSION: CONTINUING ATELECTASIS, BOTH LUNGS.
[2017-10-27] MEDS: HEPARIN SODIUM,PORCINE 5,000 UNIT/ML 1 ML VIAL SQ SCH ×3 (08:28→23:32)
[2017-10-27] MEDS: METOPROLOL TARTRATE 25 MG TAB PO SCH ×3 (08:29→20:27)
[2017-10-27] MEDS: CLOPIDOGREL 75 MG TAB PO SCH (08:29)
[2017-10-27] MEDS: ATORVASTATIN 40 MG TAB PO SCH (08:29)
[2017-10-27] MEDS: ASPIRIN 325 MG TAB PO SCH (08:29)
[2017-10-27] MEDS: IPRATROPIUM-ALBUTEROL 3 ML NEB INHALATION SCH ×4 (08:54→20:33)
[2017-10-27] MEDS ORDERED: MUPIROCIN 2% OINT 22 GM TUBE NASAL SCH (09:00)
--- NOTE | 2017-10-27 09:59 | P.PN ---
Subjective Progress Note Date: 10/27/17 Principal diagnosis: Diffuse coronary artery disease with 60-70% ostial stenosis of the left main, total occlusion of the mid LAD and critical lesion involving the distal RCA. Non-STEMI. Preoperative bradycardia. Current tobacco dependence with preoperative FEV1 96% of predicted. History of prescription drug abuse currently on Suboxone. History of syncope History of remote alcohol abuse. History of hyperlipidemia. History of marijuana use. Family history of coronary artery disease. POD #3 urgent coronary artery bypass grafting 3 vessels with placement of his left internal mammary artery to his left anterior descending coronary artery, reverse greater saphenous vein graft off the aorta to the posterior descending coronary artery, reverse greater saphenous vein graft to the circumflex coronary artery, endoscopic vein harvesting and intraoperative transesophageal echocardiogram. Patient currently up in the chair in no acute distress. States his pain is much better controlled now that all of his tubes are out. Denies shortness of breath. Was transferred out of ICU to [address] [place] [address] last night. He has been ambulating in the hallway already. Objective - Vital Signs Vital signs: Vital Signs Temp 96.2 F L 10/27/17 08:00 Pulse 80 10/27/17 09:07 Resp 18 10/27/17 08:00 BP 136/89 10/27/17 08:00 Pulse Ox 97 10/27/17 08:00 Intake & Output 10/26/17 10/27/17 10/27/17 18:59 06:59 18:59 Intake Total 410 200 120 Output Total 1245 1250 Balance -835 -1050 120 Weight 90.8 kg 90.9 kg Intake: IV 110 Lactated Ringers 1,000 ml 80 @ 20 mls/hr IV .Q24H [facility] Rx#:[id number] Pressure Bag (0.9 Sodium 30 Chloride) Intake, IV Titration 100 Amount Magnesium Sulfate-D5w Pmx 100 1 gm In Dextrose/Water 1 100ml.bag @ 100 mls/hr IVPB Q1H [facility] Rx#: [id number] Oral 200 200 120 Output: Chest Tube Drainage 60 Chest Tube Left Pleural/ 60 Mediastinal Urine 1185 1250 Other: Voiding Method Urinal Urinal # Voids 1 1 # Bowel Movements 0 ABP, PAP, CO, CI - Last Documented Arterial Blood Pressure 131/67 Pulmonary Artery Pressure 39/18 Cardiac Output 5.7 Cardiac Index 2.8 - Constitutional General appearance: Present: cooperative, no acute distress - Respiratory Details: Lungs sounds diminished bilaterally. Respirations even, nonlabored. Currently on room air with oxygen saturations 94%. Able to achieve 2000 on his incentive spirometry. - Cardiovascular Details: S1, S2 present. Regular rate and rhythm, sinus rhythm on telemetry. Sternum stable. Palpable peripheral pulses bilaterally. No edema present. No calf pain or tenderness noted. Heart hugger in place with patient demonstrating appropriate use. Antiembolism stockings, SCDs present. - Gastrointestinal Gastrointestinal Comment(s): Abdomen soft, nontender, nondistended. Active bowel sounds 4 quadrants. Tolerating diet. Positive flatus, negative bowel movement since surgery. - Genitourinary Genitourinary Comment(s): Gooden discontinued yesterday. Voiding clear, yellow urine. - Integumentary Integumentary Comment(s): Skin is warm and dry with evidence of good perfusion. Anterior chest incision well approximated and covered with dry intact dressing. Left lower extremity EVH site well approximated. - Neurologic Neurologic: Present: CNII-XII intact - Musculoskeletal Musculoskeletal: Present: gait normal, strength equal bilaterally - Psychiatric Psychiatric: Present: A&O x's 3, appropriate affect, intact judgment & insight - Allied health notes Allied health notes reviewed: nursing - Labs CBC & Chem 7: 10/27/17 05:37 10/27/17 05:37 Labs: Abnormal Lab Results - Last 24 Hours (Table) 10/26/17 10/27/17 10/27/17 Range/Units 21:05 02:22 05:37 Monocytes # (Manual) 1.11 H (0-1.0) k/uL POC Glucose (mg/dL) 113 H 107 H (75-99) mg/dL - Imaging and Cardiology Chest x-ray: report reviewed, image reviewed Assessment and Plan (1) Hyperlipidemia Current Visit: Yes Status: Chronic Code(s): E78.5 - HYPERLIPIDEMIA, UNSPECIFIED SNOMED Code(s): 37493918 (2) History of ETOH abuse Current Visit: No Status: Resolved Code(s): Z87.898 - PERSONAL HISTORY OF OTHER SPECIFIED CONDITIONS SNOMED Code(s): 276116573 (3) Marijuana use, episodic Current Visit: Yes Status: Chronic Code(s): F12.90 - CANNABIS USE, UNSPECIFIED, UNCOMPLICATED SNOMED Code(s): 522736027 (4) History of prescription drug abuse Current Visit: No Status: Resolved Code(s): F19.21 - OTHER PSYCHOACTIVE SUBSTANCE DEPENDENCE, IN REMISSION SNOMED Code(s): 116807675 (5) Nicotine dependence Current Visit: Yes Status: Chronic Code(s): F17.200 - NICOTINE DEPENDENCE, UNSPECIFIED, UNCOMPLICATED SNOMED Code(s): 08441819 (6) ST elevation myocardial infarction (STEMI) Current Visit: Yes Status: Acute Code(s): I21.3 - ST ELEVATION (STEMI) MYOCARDIAL INFARCTION OF [facility] SITE SNOMED Code(s): 625810142 (7) Sinus bradycardia Current Visit: Yes Status: Chronic Code(s): R00.1 - BRADYCARDIA, UNSPECIFIED SNOMED Code(s): 99423997 Plan: 1. Continue aspirin, statin, Plavix, beta yaakov. Will increase beta yaakov as tolerated. 2. Encourage incentive spirometry use 10 times every hour. Continued smoking cessation strongly encouraged. Patient needs aggressive pulmonary toileting. 3. Will monitor daily labs and x-rays. 4. GI/DVT prophylaxis. 5. Pain control with ordered medications. 6. Diabetic management per primary care service. 7. Increase activity, ambulate in hallway. PT/OT/chronic rehab following. 8. More recommendations to follow. Discharge planning in progress. Anticipate discharge to home with home care soon. Time with Patient: Greater than 30
[2017-10-27 11:40] LABS: Glucose,Whole Blood 91 mg/dL (75-99)
--- NOTE | 2017-10-27 11:51 | PN ---
PROGRESS NOTE Mr. Page is a 47-year-old male who presented with a myocardial infarction, underwent cardiac catheterization, underwent coronary artery bypass grafting. He is doing well this morning. His breathing is stable. He still has some chest soreness, but better. He is ambulating better. His energy is better. He continues to be in sinus mechanism. He has no dizziness or palpitation. He continues to be on aspirin once a day, Lipitor 40 mg daily, Plavix 75 mg daily, metoprolol tartrate 25 mg 3 times a day. PHYSICAL EXAMINATION: Blood pressure 136/80 with a heart rate in the 80s. LUNGS: Mild decrease in breath sounds at the bases. HEART: Regular rate and rhythm. S1, S2. No S3. No rub. ABDOMEN: Soft, nontender. EXTREMITIES: No significant edema. LAB DATA: BUN and creatinine of 13 and 0.8, potassium 4.4, hemoglobin of 14.3. IMPRESSION: 1. Status post coronary artery bypass grafting, stable. 2. History of chronic tobacco use. 3. History of hyperlipidemia. RECOMMENDATION: From the cardiac standpoint, we will continue the patient on medical therapy, increase his level of activity. If he remains stable, I would expect he should be able to be discharged home soon and follow as an outpatient with Dr. Mendoza. MMODL / IJN: [id number] /
--- NOTE | 2017-10-27 14:51 | P.PN ---
Subjective Progress Note Date: 10/27/17 On 10/27/2017 seeing this patient for a follow-up. The patient got transferred out of the intensive care unit. The patient is doing very well. Surgical wound site is dry clean and intact. The patient is currently on room air. Chest tubes are all taken out. Sternum stable clean and intact. No nausea or vomiting. He is still using incentive spirometer. He will was stable at 14.3. No other significant events over the past 24 hours. He is currently postop day #3 and he underwent three-vessel bypass surgery with NUÑEZ to LAD. He is currently on a telemetry unit. Objective - Vital Signs Vital signs: Vital Signs Temp 99.0 F 10/27/17 11:38 Pulse 85 10/27/17 11:38 Resp 18 10/27/17 11:38 BP 119/67 10/27/17 11:38 Pulse Ox 95 10/27/17 11:38 Intake & Output 10/26/17 10/27/17 10/27/17 18:59 06:59 18:59 Intake Total 410 200 120 Output Total 1245 1250 Balance -835 -1050 120 Weight 90.8 kg 90.9 kg Intake: IV 110 Lactated Ringers 1,000 ml 80 @ 20 mls/hr IV .Q24H [facility] Rx#:[id number] Pressure Bag (0.9 Sodium 30 Chloride) Intake, IV Titration 100 Amount Magnesium Sulfate-D5w Pmx 100 1 gm In Dextrose/Water 1 100ml.bag @ 100 mls/hr IVPB Q1H [facility] Rx#: [id number] Oral 200 200 120 Output: Chest Tube Drainage 60 Chest Tube Left Pleural/ 60 Mediastinal Urine 1185 1250 Other: Voiding Method Urinal Urinal # Voids 1 1 1 # Bowel Movements 0 0 ABP, PAP, CO, CI - Last Documented Arterial Blood Pressure 131/67 Pulmonary Artery Pressure 39/18 Cardiac Output 5.7 Cardiac Index 2.8 - Exam - Constitutional General appearance: Present: cooperative, no acute distress - Respiratory Details: Lungs sounds diminished bilaterally. Respirations even, nonlabored. Currently on room air with oxygen saturations 94%. Able to achieve 2000 on his incentive spirometry. - Cardiovascular Details: S1, S2 present. Regular rate and rhythm, sinus rhythm on telemetry. Sternum stable. Palpable peripheral pulses bilaterally. No edema present. No calf pain or tenderness noted. Heart hugger in place with patient demonstrating appropriate use. Antiembolism stockings, SCDs present. - Gastrointestinal Gastrointestinal Comment(s): Abdomen soft, nontender, nondistended. Active bowel sounds 4 quadrants. Tolerating diet. Positive flatus, negative bowel movement since surgery. - Genitourinary Genitourinary Comment(s): Gooden discontinued yesterday. Voiding clear, yellow urine. - Integumentary Integumentary Comment(s): Skin is warm and dry with evidence of good perfusion. Anterior chest incision well approximated and covered with dry intact dressing. Left lower extremity EVH site well approximated. - Neurologic Neurologic: Present: CNII-XII intact - Musculoskeletal Musculoskeletal: Present: gait normal, strength equal bilaterally - Psychiatric Psychiatric: Present: A&O x's 3, appropriate affect, intact judgment & insight - Labs CBC & Chem 7: 10/27/17 05:37 10/27/17 05:37 Labs: Abnormal Lab Results - Last 24 Hours (Table) 10/26/17 10/27/17 10/27/17 Range/Units 21:05 02:22 05:37 Monocytes # (Manual) 1.11 H (0-1.0) k/uL POC Glucose (mg/dL) 113 H 107 H (75-99) mg/dL Assessment and Plan Plan: Assessment: #1. Severe three-vessel coronary artery disease, and the patient is post three- vessel bypass surgery. Patient is postop day #3. Hemodynamically stable and the patient is doing extremely well and ambulating and there has been no other significant events over the past 24 hours. Currently is on telemetry unit. He is pulling approximately 2000 on his incentive spirometer. Chest x-ray shows atelectatic changes in both lungs otherwise no other acute abnormalities noted. #2. Non-ST elevated [place] #3. Previous history of heavy tobacco use, based on FEV1 is noted of 96% of predicted. The patient is doing well on his incentive spirometer #4. History of prescription drug abuse, currently on Suboxone #5. History of hyperlipidemia Plan Continue aspirin and Plavix and beta blockers and statins. The patient continues to use incentive spirometer. He is ambulating. Pulmonary toileting. We'll continue to follow. Good recovery postop day #3.
[2017-10-27 16:56] LABS: Glucose,Whole Blood 101 mg/dL (75-99)
--- NOTE | 2017-10-27 17:33 | PN ---
PROGRESS NOTE DATE OF SERVICE: 10/27/2017. INTERVAL HISTORY: This 47-year-old gentleman who was admitted after acute non ST elevation myocardial infarction and CABG is being closely monitored. The patient is slowly improving. No chest pain. No palpitations. No fever. EXAM: Alert and oriented x3. Pulse 80, blood pressure is 120/82, respirations 17, temp is normal, pulse ox 90% on room air. HEENT: Conjunctivae normal. NECK: No jugular venous distention. CARDIOVASCULAR: S1, S2 muffled. RESPIRATORY: Breath sounds diminished in the bases. A few rhonchi, no crackles. ABDOMEN: Is soft, nontender. No mass palpable. LEGS: No edema, no cyanosis. NERVOUS SYSTEM: No focal deficits. LABS: CBC and BMP within normal limits. ASSESSMENT: 1. Status post non-ST elevation myocardial infarction and multivessel disease and CABG. 2. Asymptomatic bradycardia. 3. Hyperlipidemia. 4. Excision shortness of breath. 5. History of nicotine dependence. 6. History of substance abuse, currently on Suboxone. RECOMMENDATIONS AND DISCUSSION: I recommend to continue current management, continue with monitoring and symptomatic treatment at this time. I would monitor the patient closely with Cardiology and Cardiothoracic Surgery. Otherwise, guarded prognosis. Further recommendations to follow. MMODL / IJN: [id number] / TORI
[2017-10-27] MEDS: SENNOSIDES-DOCUSATE SODIUM 1 EACH TAB PO SCH (20:27)
[2017-10-27 20:47] LABS: Glucose,Whole Blood 95 mg/dL (75-99)
[2017-10-28] MEDS: HYDROcodone/APAP 7.5-325MG 1 EACH TAB PO PRN ×3 (00:27→17:56)
[2017-10-28 02:16] LABS: Glucose,Whole Blood 103 mg/dL (75-99)
[2017-10-28 05:59] LABS: Glucose,Whole Blood 113 mg/dL (75-99)
[2017-10-28] MEDS: INSULIN ASPART 100 UNIT/ML 1 ML 10 ML VIAL SQ SCH ×4 (06:09→22:57)
[2017-10-28 06:15] LABS: HCT 42.6 % (39.0-53.0); HGB 14.3 gm/dL (13.0-17.5); MCH 30.8 pg (25.0-35.0); MCHC 33.6 g/dL (31.0-37.0); MCV 91.8 fL (80.0-100.0); Mean Platelet Volume 8.1; Platelet Count 228 k/uL (150-450); RBC 4.64 m/uL (4.30-5.90); RDW 14.1 % (11.5-15.5); WBC 9.6 k/uL (3.8-10.6)
[2017-10-28 06:22] LABS: ALT 29 U/L (21-72); AST 20 U/L (17-59); Albumin 3.9 g/dL (3.5-5.0); Alkaline Phosphatase 44 U/L (38-126); Anion Gap 13 mmol/L; Blood Urea Nitrogen 18 mg/dL (9-20); Calcium 9.3 mg/dL (8.4-10.2); Carbon Dioxide 24 mmol/L (22-30); Chloride 106 mmol/L (98-107); Glucose 109 mg/dL (74-99); Potassium 4.2 mmol/L (3.5-5.1); Sodium 143 mmol/L (137-145); Total Bilirubin 0.5 mg/dL (0.2-1.3); Total Protein 6.3 g/dL (6.3-8.2)
--- NOTE | 2017-10-28 06:24 | XR ---
EXAMINATION TYPE: XR chest 2V DATE OF EXAM: 10/28/2017 HISTORY: post cardiac surgery. REFERENCE: Previous study dated 10/27/2017. FINDINGS: There has been a previous ACDF in the lower cervical spine. There has been a midline sterno sana. There continues to BE platelike atelectasis in the left midlung and also in the right upper lob e. This is essentially unchanged from previous. Heart size is within normal limits. There is minimal blunting of the left CP angle. IMPRESSION: 1. CONTINUING AREAS OF PLATELIKE ATELECTASIS BILATERALLY. 2. I COULD NOT EXCLUDE A SMALL LEFT EFFUSION.
[2017-10-28] MEDS: PANTOPRAZOLE 40 MG TABLET PO SCH (06:34)
[2017-10-28] MEDS: IPRATROPIUM-ALBUTEROL 3 ML NEB INHALATION SCH ×4 (08:42→20:01)
--- NOTE | 2017-10-28 08:46 | P.PN ---
Subjective Progress Note Date: 10/28/17 Principal diagnosis: Diffuse coronary artery disease with 60-70% ostial stenosis of the left main, total occlusion of the mid LAD and critical lesion involving the distal RCA. Non-STEMI. Preoperative bradycardia. Current tobacco dependence with preoperative FEV1 96% of predicted. History of prescription drug abuse currently on Suboxone. History of syncope History of remote alcohol abuse. History of hyperlipidemia. History of marijuana use. Family history of coronary artery disease. POD #4 urgent coronary artery bypass grafting 3 vessels with placement of his left internal mammary artery to his left anterior descending coronary artery, reverse greater saphenous vein graft off the aorta to the posterior descending coronary artery, reverse greater saphenous vein graft to the circumflex coronary artery, endoscopic vein harvesting and intraoperative transesophageal echocardiogram. Patient currently up in the chair in no acute distress. States his pain is much better controlled. Denies shortness of breath. He did have difficulty sleeping last night, trying to sleep on his side, did feel clicking in his chest bone. He has been ambulating in the hallway. Objective - Vital Signs Vital signs: Vital Signs Temp 98.1 F 10/28/17 03:29 Pulse 78 10/28/17 03:32 Resp 17 10/28/17 03:32 BP 128/83 10/28/17 03:29 Pulse Ox 94 L 10/28/17 03:29 Intake & Output 10/27/17 10/28/17 10/28/17 18:59 06:59 18:59 Intake Total 480 500 240 Output Total 300 300 Balance 180 200 240 Weight 89.9 kg Intake: Oral 480 500 240 Output: Urine 300 300 Other: Voiding Method Toilet Urinal # Voids 1 1 # Bowel Movements 0 1 ABP, PAP, CO, CI - Last Documented Arterial Blood Pressure 131/67 Pulmonary Artery Pressure 39/18 Cardiac Output 5.7 Cardiac Index 2.8 - Constitutional General appearance: Present: cooperative, no acute distress - Respiratory Details: Lungs sounds diminished bilaterally. Respirations even, nonlabored. Currently on room air with oxygen saturations 94%. Able to achieve 2000 on his incentive spirometry. Strong cough. - Cardiovascular Details: S1, S2 present. Regular rate and rhythm, sinus rhythm on telemetry. Sternum has some clicking with strong coughing. Palpable peripheral pulses bilaterally. No edema present. No calf pain or tenderness noted. Heart hugger in place with patient demonstrating appropriate use. Antiembolism stockings, SCDs present. - Gastrointestinal Gastrointestinal Comment(s): Abdomen soft, nontender, nondistended. Active bowel sounds 4 quadrants. Tolerating diet. Positive bowel movement. - Genitourinary Genitourinary Comment(s): Continues to void clear, yellow urine. - Integumentary Integumentary Comment(s): Skin is warm and dry with evidence of good perfusion. Anterior chest incision well approximated and covered with dry intact dressing. Left lower extremity EVH site well approximated. - Neurologic Neurologic: Present: CNII-XII intact - Musculoskeletal Musculoskeletal: Present: gait normal, strength equal bilaterally - Psychiatric Psychiatric: Present: A&O x's 3, appropriate affect, intact judgment & insight - Allied health notes Allied health notes reviewed: nursing - Labs CBC & Chem 7: 10/28/17 05:33 10/28/17 05:33 Labs: Abnormal Lab Results - Last 24 Hours (Table) 10/27/17 10/28/17 10/28/17 Range/Units 16:31 02:12 05:33 Glucose 109 H (74-99) mg/dL POC Glucose (mg/dL) 101 H 103 H (75-99) mg/dL 10/28/17 Range/Units 05:58 Glucose (74-99) mg/dL POC Glucose (mg/dL) 113 H (75-99) mg/dL - Imaging and Cardiology Chest x-ray: report reviewed, image reviewed Assessment and Plan (1) Hyperlipidemia Current Visit: Yes Status: Chronic Code(s): E78.5 - HYPERLIPIDEMIA, UNSPECIFIED SNOMED Code(s): 34758683 (2) History of ETOH abuse Current Visit: No Status: Resolved Code(s): Z87.898 - PERSONAL HISTORY OF OTHER SPECIFIED CONDITIONS SNOMED Code(s): 333067548 (3) Marijuana use, episodic Current Visit: Yes Status: Chronic Code(s): F12.90 - CANNABIS USE, UNSPECIFIED, UNCOMPLICATED SNOMED Code(s): 175748513 (4) History of prescription drug abuse Current Visit: No Status: Resolved Code(s): F19.21 - OTHER PSYCHOACTIVE SUBSTANCE DEPENDENCE, IN REMISSION SNOMED Code(s): 782309178 (5) Nicotine dependence Current Visit: Yes Status: Chronic Code(s): F17.200 - NICOTINE DEPENDENCE, UNSPECIFIED, UNCOMPLICATED SNOMED Code(s): 93708049 (6) ST elevation myocardial infarction (STEMI) Current Visit: Yes Status: Acute Code(s): I21.3 - ST ELEVATION (STEMI) MYOCARDIAL INFARCTION OF [facility] SITE SNOMED Code(s): 420761430 (7) Sinus bradycardia Current Visit: Yes Status: Chronic Code(s): R00.1 - BRADYCARDIA, UNSPECIFIED SNOMED Code(s): 71206793 Plan: 1. Continue aspirin, statin, Plavix, beta yaakov. Will increase beta yaakov as tolerated. 2. Encourage incentive spirometry use 10 times every hour. Continued smoking cessation strongly encouraged. Patient needs aggressive pulmonary toileting. 3. Reinforced sternal precautions. Patient should not delay on his side. 4. Will monitor daily labs and x-rays. 5. GI/DVT prophylaxis. 6. Pain control with ordered medications. 7. Diabetic management per primary care service. 8. Increase activity, ambulate in hallway. PT/OT/chronic rehab following. 9. More recommendations to follow. Discharge planning in progress. Anticipate discharge to home with home care soon. Time with Patient: Greater than 30
[2017-10-28] MEDS: HEPARIN SODIUM,PORCINE 5,000 UNIT/ML 1 ML VIAL SQ SCH ×3 (09:05→23:59)
[2017-10-28] MEDS: ASPIRIN 325 MG TAB PO SCH (09:08)
[2017-10-28] MEDS: CLOPIDOGREL 75 MG TAB PO SCH (09:08)
[2017-10-28] MEDS: METOPROLOL TARTRATE 25 MG TAB PO SCH ×3 (09:09→20:34)
[2017-10-28] MEDS: ATORVASTATIN 40 MG TAB PO SCH (09:09)
--- NOTE | 2017-10-28 11:00 | PN ---
PROGRESS NOTE HISTORY: Mr. Page is a 47-year-old male who presented with myocardial infarction, underwent cardiac bypass grafting. He is doing well this morning. He is feeling stronger. His breathing is stable. He denies any chest pain except some incisional pain. He has no dizziness or palpitation. He continues to be in sinus mechanism. He continues to be at this time on aspirin once a day, Lipitor 40 mg daily, Plavix 75 mg daily. Metoprolol tartrate 25 mg 3 times a day. PHYSICAL EXAMINATION: Blood pressure 128/80 with a heart rate in the 70s. LUNGS: Clear. Regular rhythm S1, S2. No S3 with a rub. ABDOMEN: Soft, nontender. EXTREMITIES: No edema. LAB DATA: Revealed a BUN and creatinine of 18 and 0.8. Hemoglobin of 14.3. IMPRESSION: 1. Status post coronary artery bypass grafting. 2. Prior history of smoking. 3. Status post myocardial infarction. RECOMMENDATION: From the cardiac standpoint, we will continue to increase his level of activity and incentive spirometry. I am hopeful that he should be able to be discharged home in the next 24 to 48 hours. MMODL / IJN: [id number] /
[2017-10-28 11:54] LABS: Glucose,Whole Blood 96 mg/dL (75-99)
--- NOTE | 2017-10-28 11:54 | P.PN ---
Subjective Progress Note Date: 10/28/17 On 10/28/2017, the patient is being seen for a follow-up. The patient is postop day #4. He is ambulating. He is moving around without any major difficulties. His chest wall is dry clean and intact. Surgical wound sites are all clean. The pain is under good control for now. The chest x-ray from today shows atelectatic changes in the right upper lobe and the left midlung and these are typical postop atelectatic change. He continues to use the incentive spirometer. No hemoptysis. No pleurisy. No chest pain. No other significant events overnight. He was able to take a shower today. Vitals are all stable. He is afebrile. Is tolerating his diet. He has adequate bowel sounds. Pulse ox on room air is 97%. Objective - Vital Signs Vital signs: Vital Signs Temp 98.8 F 10/28/17 08:00 Pulse 84 10/28/17 09:01 Resp 16 10/28/17 08:00 BP 131/83 10/28/17 08:00 Pulse Ox 97 10/28/17 08:00 Intake & Output 10/27/17 10/28/17 10/28/17 18:59 06:59 18:59 Intake Total 480 500 240 Output Total 300 300 Balance 180 200 240 Weight 89.9 kg Intake: Oral 480 500 240 Output: Urine 300 300 Other: Voiding Method Toilet Urinal # Voids 1 1 # Bowel Movements 0 1 ABP, PAP, CO, CI - Last Documented Arterial Blood Pressure 131/67 Pulmonary Artery Pressure 39/18 Cardiac Output 5.7 Cardiac Index 2.8 - Exam - Constitutional General appearance: Present: cooperative, no acute distress - Respiratory Details: Lungs sounds diminished bilaterally. Respirations even, nonlabored. Currently on room air with oxygen saturations 97%. Able to achieve 2000 on his incentive spirometry. - Cardiovascular Details: S1, S2 present. Regular rate and rhythm, sinus rhythm on telemetry. Sternum stable. Palpable peripheral pulses bilaterally. No edema present. No calf pain or tenderness noted. Heart hugger in place with patient demonstrating appropriate use. Antiembolism stockings, SCDs present. - Gastrointestinal Gastrointestinal Comment(s): Abdomen soft, nontender, nondistended. Active bowel sounds 4 quadrants. Tolerating diet. Positive flatus, negative bowel movement since surgery. - Genitourinary Genitourinary Comment(s): Gooden discontinued yesterday. Voiding clear, yellow urine. - Integumentary Integumentary Comment(s): Skin is warm and dry with evidence of good perfusion. Anterior chest incision well approximated and covered with dry intact dressing. Left lower extremity EVH site well approximated. - Neurologic Neurologic: Present: CNII-XII intact - Musculoskeletal Musculoskeletal: Present: gait normal, strength equal bilaterally - Psychiatric Psychiatric: Present: A&O x's 3, appropriate affect, intact judgment & insight - Labs CBC & Chem 7: 10/28/17 05:33 10/28/17 05:33 Labs: Abnormal Lab Results - Last 24 Hours (Table) 10/27/17 10/28/17 10/28/17 Range/Units 16:31 02:12 05:33 Glucose 109 H (74-99) mg/dL POC Glucose (mg/dL) 101 H 103 H (75-99) mg/dL 10/28/17 Range/Units 05:58 Glucose (74-99) mg/dL POC Glucose (mg/dL) 113 H (75-99) mg/dL Assessment and Plan Plan: Assessment: #1. Severe three-vessel coronary artery disease, and the patient is post three- vessel bypass surgery. Patient is postop day #4. The patient has postoperative atelectatic changes in the right upper lobe with a left lower lobe. Nevertheless he continues using incentive spirometer. His oxygenation is improved and the patient is up to 97% on room air. No respiratory difficulties for now. He is having some limited chest wall pain related to the surgical scar. Otherwise, he was unable to stable. Blood pressure and vitals are all stable. #2. Non-ST elevated [place], post-bypass surgery #3. Previous history of heavy tobacco use, based on FEV1 is noted of 96% of predicted. The patient is doing well on his incentive spirometer #4. History of prescription drug abuse, currently on Suboxone #5. History of hyperlipidemia Plan Continue aspirin and Plavix and beta blockers and statins. The patient continues to use incentive spirometer. Adequate postop recovery with some limited atelectatic changes in the lungs as evident on today's chest x-ray. Normal oxygenation. Continue supportive care. We'll continue to follow.
[2017-10-28 16:51] LABS: Glucose,Whole Blood 86 mg/dL (75-99)
--- NOTE | 2017-10-28 17:49 | PN ---
PROGRESS NOTE DATE OF SERVICE: 10/28/2016. INTERIM HISTORY: This 47-year-old gentleman was admitted after ST segment elevation myocardial infarction, CABG is improving significantly. No chest pain. No palpitations. No fever. EXAM: Alert and oriented x3. Pulse 82. Blood pressure is 100/77, respirations 16, temperature is 98.6, pulse ox 98% on room air. HEENT: Conjunctivae normal. Neck: No jugular venous distention. Cardiovascular: S1 S2 muffled. Respiratory: Bilateral scattered rhonchi. Abdomen is soft, nontender. Legs: No edema. No swelling. CENTRAL NERVOUS SYSTEM: No focal deficits. LABS: CBC and BMP within normal limits. ASSESSMENT: 1. Status post acute non-ST segment elevation myocardial infarction, multivessel disease and coronary artery bypass grafting. 2. Symptomatic bradycardia. 3. Hyperlipidemia. 4. Exertional shortness of breath. 5. History nicotine dependence. RECOMMENDATIONS AND DISCUSSION: Recommend to continue current medications, management and symptomatic treatment. Incentive spirometry. Increase ambulation. DVT prophylaxis. The rest of the recommendations per the cardiovascular surgery. Further recommendations to follow. MMODL / IJN: [id number] /
[2017-10-28 20:10] VITALS: RESP 18
[2017-10-28] MEDS: SENNOSIDES-DOCUSATE SODIUM 1 EACH TAB PO SCH (20:33)
[2017-10-28 20:48] LABS: Glucose,Whole Blood 129 mg/dL (75-99)
[2017-10-29] MEDS: HYDROcodone/APAP 7.5-325MG 1 EACH TAB PO PRN ×3 (00:02→17:12)
[2017-10-29 02:46] LABS: Glucose,Whole Blood 102 mg/dL (75-99)
[2017-10-29 03:58] LABS: HCT 44.5 % (39.0-53.0); MCH 30.6 pg (25.0-35.0); MCHC 33.6 g/dL (31.0-37.0); MCV 91.1 fL (80.0-100.0); Mean Platelet Volume 7.1; Platelet Count 265 k/uL (150-450); RBC 4.89 m/uL (4.30-5.90); RDW 13.8 % (11.5-15.5); WBC 9.6 k/uL (3.8-10.6)
[2017-10-29 04:11] LABS: ALT 27 U/L (21-72); AST 18 U/L (17-59); Albumin 4.1 g/dL (3.5-5.0); Alkaline Phosphatase 48 U/L (38-126); Anion Gap 14 mmol/L; Blood Urea Nitrogen 20 mg/dL (9-20); Calcium 9.7 mg/dL (8.4-10.2); Carbon Dioxide 23 mmol/L (22-30); Chloride 106 mmol/L (98-107); Glucose 111 mg/dL (74-99); Potassium 4.6 mmol/L (3.5-5.1); Sodium 143 mmol/L (137-145); Total Bilirubin 0.6 mg/dL (0.2-1.3); Total Protein 6.7 g/dL (6.3-8.2)
[2017-10-29 06:40] LABS: Glucose,Whole Blood 97 mg/dL (75-99)
[2017-10-29] MEDS: PANTOPRAZOLE 40 MG TABLET PO SCH (06:52)
[2017-10-29] MEDS: INSULIN ASPART 100 UNIT/ML 1 ML 10 ML VIAL SQ SCH ×4 (06:58→20:41)
[2017-10-29] MEDS: IPRATROPIUM-ALBUTEROL 3 ML NEB INHALATION SCH ×4 (08:03→19:52)
--- NOTE | 2017-10-29 08:10 | XR ---
EXAMINATION TYPE: XR chest 2V DATE OF EXAM: 10/29/2017 COMPARISON: Prior chest x-ray 10/28/2017 HISTORY: Status post cardiac surgery TECHNIQUE: Frontal and lateral views of the chest are obtained. FINDINGS: Patient is rotated. Postop change noted at the cervicothoracic junction. No evident pneumo thorax. Patchy basilar density persists, patient is post median sternotomy. Perihilar increased densi ty also noted. Cardiac mediastinal silhouette, pulmonary vascularity and melvin not significantly lakhani ed. There are overlying cardiac leads. IMPRESSION: Suspect some residual atelectatic change.
[2017-10-29] MEDS: ATORVASTATIN 40 MG TAB PO SCH (10:00)
[2017-10-29] MEDS: METOPROLOL TARTRATE 25 MG TAB PO SCH (10:00)
[2017-10-29] MEDS: CLOPIDOGREL 75 MG TAB PO SCH (10:00)
[2017-10-29] MEDS: ASPIRIN 325 MG TAB PO SCH (10:00)
[2017-10-29] MEDS: HEPARIN SODIUM,PORCINE 5,000 UNIT/ML 1 ML VIAL SQ SCH ×2 (10:00→17:12)
--- NOTE | 2017-10-29 10:24 | P.PN ---
Subjective Progress Note Date: 10/29/17 Principal diagnosis: Status post CABG This is a 47-year-old who is status post coronary artery bypass grafting surgery , he was seen and examined this morning on the telemetry unit. He has a ready been up ambulating in the hallway today. Complaining of some incisional discomfort at the time of my examination this morning. Patient was noted on the monitor to have 1 run of nonsustained ventricular tachycardia, 10 beats. Magnesium level on the 1.7. Potassium 4.6. Blood pressure 106/78 with a heart rate in the 70s. Reaching 2000 on his incentive spirometer. Chest x-ray performed this morning reveal some residual atelectatic change. Objective - Vital Signs Vital signs: Vital Signs Temp 97.7 F 10/29/17 04:00 Pulse 74 10/29/17 04:00 Resp 18 10/29/17 04:00 BP 106/79 10/29/17 04:00 Pulse Ox 74 L 10/29/17 04:00 Intake & Output 10/28/17 10/29/17 10/29/17 18:59 06:59 18:59 Intake Total 600 240 Output Total 100 Balance 500 240 Weight 90.2 kg Intake: Oral 600 240 Output: Urine 100 Other: Voiding Method Toilet Toilet Urinal Urinal # Bowel Movements 1 ABP, PAP, CO, CI - Last Documented Arterial Blood Pressure 131/67 Pulmonary Artery Pressure 39/18 Cardiac Output 5.7 Cardiac Index 2.8 - Exam PHYSICAL EXAMINATION: HEENT: Head is atraumatic, normocephalic. Pupils equal, round. Neck is supple. There is no elevated jugular venous pressure. HEART EXAMINATION: Heart S1, S2 normal. No murmur or gallop heard. CHEST EXAMINATION: Lungs are clear to auscultation and precussion. No chest wall tenderness is noted on palpation or with deep breathing. Mild incisional pain ABDOMEN: Soft, nontender. Bowel sounds are heard. No organomegaly noted. EXTREMITIES: 2+ peripheral pulses with no evidence of peripheral edema and no calf tenderness noted. NEUROLOGIC patient is awake, alert and oriented -3. . - Labs CBC & Chem 7: 10/29/17 03:46 10/29/17 03:46 Labs: Abnormal Lab Results - Last 24 Hours (Table) 04/22/18 04/23/18 04/23/18 Range/Units 20:46 02:36 03:46 Glucose 111 H (74-99) mg/dL POC Glucose (mg/dL) 129 H 102 H (75-99) mg/dL Assessment and Plan Plan: Assessment and plan #1 status post coronary artery bypass grafting surgery #2 non-ST elevation ID #3 nicotine dependence #4 history of chronic pain with prescription drug abuse history # 5 hyperlipidemia #6 run of nonsustained ventricular tachycardia Plan We will increase the current dose of beta yaakov to 50 mg one tablet by mouth twice a day, continue the rest of the patient's medication. DNP note has been reviewed, I agree with a documented findings and plan of care. Patient was seen and examined.
[2017-10-29] MEDS: MAGNESIUM SULFATE-D5W PMX 1 GM in DEXTROSE/WATER 1 100ML.BAG IVPB SCH ×2 (11:40→12:44)
[2017-10-29 11:45] LABS: Glucose,Whole Blood 103 mg/dL (75-99)
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
--- NOTE | 2017-10-29 14:34 | P.PN ---
Subjective Progress Note Date: 10/29/17 Principal diagnosis: Status post triple-vessel coronary artery disease bypass grafting postoperative day #5. On 10/28/2017, the patient is being seen for a follow-up. The patient is postop day #4. He is ambulating. He is moving around without any major difficulties. His chest wall is dry clean and intact. Surgical wound sites are all clean. The pain is under good control for now. The chest x-ray from today shows atelectatic changes in the right upper lobe and the left midlung and these are typical postop atelectatic change. He continues to use the incentive spirometer. No hemoptysis. No pleurisy. No chest pain. No other significant events overnight. He was able to take a shower today. Vitals are all stable. He is afebrile. Is tolerating his diet. He has adequate bowel sounds. Pulse ox on room air is 97%. On 10/29/2017, patient was seen on follow-up, his postoperative day #5. Doing well, relatively asymptomatic, chest x-ray is reassuring. Patient denies any cough wheezing or shortness of breath. Already ambulating nicely, and quite compliant with his incentive spirometer. Objective - Vital Signs Vital signs: Vital Signs Temp 97.7 F 10/29/17 04:00 Pulse 74 10/29/17 04:00 Resp 18 10/29/17 04:00 BP 106/79 10/29/17 04:00 Pulse Ox 74 L 10/29/17 04:00 Intake & Output 10/28/17 10/29/17 10/29/17 18:59 06:59 18:59 Intake Total 600 480 Output Total 100 Balance 500 480 Weight 90.2 kg Intake: Oral 600 480 Output: Urine 100 Other: Voiding Method Toilet Toilet Urinal Urinal # Voids 2 # Bowel Movements 0 ABP, PAP, CO, CI - Last Documented Arterial Blood Pressure 131/67 Pulmonary Artery Pressure 39/18 Cardiac Output 5.7 Cardiac Index 2.8 - Exam - Constitutional General appearance: Present: cooperative, no acute distress - Respiratory Details: Lungs sounds diminished bilaterally. Respirations even, nonlabored. Currently on room air with oxygen saturations 97%. Continues to do well with incentive spirometry. - Cardiovascular Details: S1, S2 present. Regular rate and rhythm, sinus rhythm on telemetry. Sternum stable. - Gastrointestinal Gastrointestinal Comment(s): Abdomen soft, nontender, nondistended. Active bowel sounds 4 quadrants. Tolerating diet. Positive flatus, negative bowel movement since surgery. - Genitourinary Genitourinary Comment(s): Gooden discontinued yesterday. Voiding clear, yellow urine. - Integumentary Integumentary Comment(s): Skin is warm and dry with evidence of good perfusion. Anterior chest incision well approximated and covered with dry intact dressing. Left lower extremity EVH site well approximated. - Neurologic Neurologic: Present: CNII-XII intact - Musculoskeletal Musculoskeletal: Present: gait normal, strength equal bilaterally - Psychiatric Psychiatric: Present: A&O x's 3, appropriate affect, intact judgment & insight - Labs CBC & Chem 7: 10/29/17 03:46 10/29/17 03:46 Labs: Abnormal Lab Results - Last 24 Hours (Table) 10/28/17 10/29/17 10/29/17 Range/Units 20:46 02:36 03:46 Glucose 111 H (74-99) mg/dL POC Glucose (mg/dL) 129 H 102 H (75-99) mg/dL 10/29/17 Range/Units 11:40 Glucose (74-99) mg/dL POC Glucose (mg/dL) 103 H (75-99) mg/dL Assessment and Plan Assessment: #1. Severe three-vessel coronary artery disease, and the patient is post three- vessel bypass surgery. Patient is postop day #5. chest x-ray was reviewed, and seems to be improving. #2. Non-ST elevated ND, post-bypass surgery #3. Previous history of heavy tobacco use, based on FEV1 is noted of 96% of predicted. The patient is doing well on his incentive spirometer #4. History of prescription drug abuse, currently on Suboxone #5. History of hyperlipidemia Recommendation: Continue present meds continue bronchodilators, continue incentive spirometry, and continue ambulation. We'll continue to follow. Time with Patient: Less than 30
[2017-10-29 17:06] LABS: Glucose,Whole Blood 128 mg/dL (75-99)
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
[2017-10-29 20:45] VITALS: BP 114/72; PULSE 90; TEMP 98.1
[2017-10-29] MEDS: SENNOSIDES-DOCUSATE SODIUM 1 EACH TAB PO SCH (20:48)
[2017-10-29] MEDS ORDERED: METOPROLOL TARTRATE 50 MG TAB PO SCH (21:00)
== END 2017-10-29 20:52 | disposition home health service (06) | DRG 234 ==
LOC: 6SEL 22:39 → 6ICU 10-21 13:46 → 6SEL 10-26 19:14
PROVIDERS: ADMIT Internal Medicine; ATTEND Thoracic Surgery (Cardiothoracic Vascular Surgery)
PROC: 021109W Bypass Coronary Artery, Two Arteries from Aorta with Autologous Venous Tissue, Open Approach (ICD-10-PCS; 2017-10-24)
PROC: 06BN4ZZ Excision of Left Femoral Vein, Percutaneous Endoscopic Approach (ICD-10-PCS; 2017-10-24)
PROC: B2151ZZ Fluoroscopy of Left Heart using Low Osmolar Contrast (ICD-10-PCS; 2017-10-24)
PROC: B2111ZZ Fluoroscopy of Multiple Coronary Arteries using Low Osmolar Contrast (ICD-10-PCS; 2017-10-24)
PROC: B54DZZ3 Ultrasonography of Bilateral Lower Extremity Veins, Intravascular (ICD-10-PCS; 2017-10-24)
PROC: B2131ZZ Fluoroscopy of Multiple Coronary Artery Bypass Grafts using Low Osmolar Contrast (ICD-10-PCS; 2017-10-24)
PROC: 4A023N7 Measurement of Cardiac Sampling and Pressure, Left Heart, Percutaneous Approach (ICD-10-PCS; principal; 2017-10-24 09:00)
PROC: 02100Z9 Bypass Coronary Artery, One Artery from Left Internal Mammary, Open Approach (ICD-10-PCS; 2017-10-24 09:00)
DX: I21.4 Non-ST elevation (NSTEMI) myocardial infarction (principal); I47.2 Ventricular tachycardia; T17.890A Other foreign object in other parts of respiratory tract causing asphyxiation, initial encounter; I31.3 Pericardial effusion (noninflammatory); J98.11 Atelectasis; I07.1 Rheumatic tricuspid insufficiency; E78.5 Hyperlipidemia, unspecified; F17.210 Nicotine dependence, cigarettes, uncomplicated; I25.10 Atherosclerotic heart disease of native coronary artery without angina pectoris; R00.1 Bradycardia, unspecified; G89.29 Other chronic pain; I10 Essential (primary) hypertension; T44.7X5A Adverse effect of beta-adrenoreceptor antagonists, initial encounter; F12.90 Cannabis use, unspecified, uncomplicated; Z79.891 Long term (current) use of opiate analgesic; Z82.49 Family history of ischemic heart disease and other diseases of the circulatory system; Z98.1 Arthrodesis status; Z79.899 Other long term (current) drug therapy; Z71.6 Tobacco abuse counseling
CPT/HCPCS: 71045; 71046; 80048; 80053; 80061; 80074; 81003; 82330; 82805; 83036; 83735; 83880; 84100; 84132; 84443; 84484; 85025; 85027; 85520; 85610; 85730; 86850; 86891; 86900; 86901; 86920; 87070; 87086; 93005; 93306; 93458; 93880; 93922; 93970; 94002; 94003; 94150; 94640

== ENCOUNTER → 2017-11-22 | Outpatient (CLI) | payer OTHER ==
[2017-11-22 07:56] LABS: Albumin 4.4 g/dL (3.5-5.0); Bilirubin, Delta 0.3 mg/dL (0.0-0.2); Bilirubin,Unconjugated 0.1 mg/dL (0.0-1.1); Total Bilirubin 0.4 mg/dL (0.2-1.3); Total Protein 7.4 g/dL (6.3-8.2)
== END | disposition home or self-care (01) ==
LOC: LABWHC1 07:06
PROVIDERS: ATTEND Internal Medicine Cardiovascular Disease
DX: E78.5 Hyperlipidemia, unspecified (principal); I25.10 Atherosclerotic heart disease of native coronary artery without angina pectoris
CPT/HCPCS: 36415; 80061; 80076

== ENCOUNTER → 2019-09-03 | Outpatient (CLI) | payer OTHER ==
[2019-09-03 12:06] LABS: Albumin 4.8 g/dL (3.80-4.90); Albumin/Globulin Ratio 2.09 (1.60-3.17); Bilirubin, Conjugated 0.2 mg/dL (0.20-0.40); Bilirubin,Unconjugated 0.5 mg/dL; Chol/HDL Ratio 6.18; Globulin 2.3 g/dL (1.6-3.3); Total Bilirubin 0.7 mg/dL (0.2-1.2); Total Protein 7.1 g/dL (6.2-8.2)
== END | disposition home or self-care (01) ==
LOC: LABWHC1 06:48
PROVIDERS: ATTEND Internal Medicine Cardiovascular Disease
DX: E78.5 Hyperlipidemia, unspecified (principal); I25.10 Atherosclerotic heart disease of native coronary artery without angina pectoris
CPT/HCPCS: 36415; 80061; 80076

== ENCOUNTER 2022-02-13 07:30 | Day surgery (SDC) | payer OTHER ==
[2022-02-10 09:04] VITALS: BMI 30.4
[~2022-02-13 07:30] MED LIST: ALPRAZolam 0.25 MG TAB PO PRN; ALPRAZolam 0.5 MG TAB PO PRN; ASPIRIN 325 MG TAB PO ONE; ATORVASTATIN 80 MG TAB PO ONE; HEPARIN SODIUM,PORCINE 10,000 UNIT in SODIUM CHLORIDE 0.9% 1,000 ML IRRIGATION PRN; HEPARIN SODIUM,PORCINE 2,500 UNIT in SODIUM CHLORIDE 0.9% 250 ML IRRIGATION PRN; NITROGLYCERIN SL TABS 0.4 MG TAB SUBLINGUAL PRN; SODIUM CHLORIDE 0.9% 1,000 ML in EMPTY BAG 1 BAG IV SCH
[2022-02-13 08:01] VITALS: TEMP 97
[2022-02-13 08:11] LABS: HCT 48.3 % (39.0-53.0); MCH 31.3 pg (25.0-35.0); MCHC 33.2 g/dL (31.0-37.0); MCV 94.3 fL (80.0-100.0); Mean Platelet Volume 8.2; Platelet Count 262 k/uL (150-450); RBC 5.13 m/uL (4.30-5.90); RDW 13.8 % (11.5-15.5); WBC 7.6 k/uL (3.8-10.6)
[2022-02-13 08:37] LABS: African American GFR (CKD) >90 (>60 ml/min/1.73 sqM); Anion Gap 6 mmol/L; Blood Urea Nitrogen 17 mg/dL (9-20); Calcium 9.2 mg/dL (8.4-10.2); Carbon Dioxide 23 mmol/L (22-30); Chloride 112 mmol/L (98-107); Glucose 109 mg/dL (74-99); Non-African American GFR(CKD) >90 (>60 ml/min/1.73 sqM); Potassium 4.3 mmol/L (3.5-5.1); Sodium 141 mmol/L (137-145)
[2022-02-13] MEDS ORDERED: fentaNYL (PF) 50 MCG/ML 2 ML AMP ONE (09:17)
[2022-02-13] MEDS: MIDAZOLAM 2 MG/2 ML VIAL IV ONE ×2 (09:30→09:36)
[2022-02-13] MEDS ORDERED: fentaNYL (PF) 50 MCG/ML 2 ML AMP IV ONE (09:30)
[2022-02-13] MEDS ORDERED: LIDOCAINE 1% INJ 10MG/ML (30 ML VIAL-PF) SQ ONE (09:33)
[2022-02-13 09:47] LABS: Eosinophils # (M) 0.15 k/uL (0-0.7); Lymphocytes # (M) 3.34 k/uL (1.0-4.8); Monocytes # (M) 0.61 k/uL (0-1.0); Neutrophils % (M) 46 %; Nucleated Red Blood Cells 0 /100 WBC (0-0); RBC Morphology Normal; Total Cells Counted 100
[2022-02-13] MEDS ORDERED: IOPAMIDOL-370 125ML BTL INJ ONE (09:52)
[2022-02-13] MEDS ORDERED: SODIUM CHLORIDE 0.9% 1,000 ML IV ONE (09:53)
[2022-02-13] MEDS ORDERED: RX INFO: IV CONTRAST WAS GIVEN 1 EACH MISC MISCELLANE PRN (10:07)
[2022-02-13] MEDS ORDERED: SODIUM CHLORIDE 0.9% 1,000 ML IV SCH (10:15)
[2022-02-13 17:32] VITALS: BP 145/82; PULSE 48; RESP 16
--- NOTE | 2022-02-13 21:38 | CC ---
CARDIAC CATHETERIZATION REPORT INDICATION: Chest pain with stress test showing ischemia involving anterolateral wall. PROCEDURE NOTE: After obtaining informed consent, left heart catheterization, coronary angiogram and selective injection of the bypass grafts was performed via the right femoral artery using standard Marnie catheters. A Tucker catheter was used to engage the bypass graft to the right and the right Marnie was used to engage the NUÑEZ and the venous graft to the circ. The patient tolerated the procedure well without any obvious immediate complications. The patient received moderate conscious sedation. Total sedation time was 27 minutes. A femoral angiogram was performed and Angio-Seal was deployed for hemostasis. FINDINGS: 1. Hemodynamics: Left ventricular end-diastolic pressure is 15 mm. There is no significant gradient across the aortic valve. 2. Left ventriculogram: Left ventriculogram was not performed. 3. Angiographic data: a.Right coronary artery: Right coronary artery is totally occluded in its proximal portion. b.Left main coronary artery is a normal-sized vessel, divides into left anterior descending coronary artery and circumflex coronary artery. LAD is totally occluded proximally. Circ itself seems to show some mild nonobstructive disease and large OM branch that was noted before has become occluded. SELECTIVE INJECTION OF THE BYPASS GRAFTS: 1. NUÑEZ to LAD is patent. Proximal and distal anastomotic sites are free of disease and atka LAD is free of disease. 2. Venous graft to the OM branch appears patent. Both the proximal and distal anastomotic sites and the body of the graft appears free of significant disease. SELECTIVE INJECTION OF THE BYPASS GRAFT TO THE RCA: The proximal and distal anastomotic sites are free of disease. The body of the graft is free of disease and the atka PDA and PLV appear free of significant focal stenosis. CONCLUSION: 1. [place] 3 vessel coronary artery disease as described above. 2. Patent NUÑEZ to LAD, patent venous graft to the right coronary artery and patent venous graft to the atka circumflex coronary artery. PLAN: The patient's stress test is a false-positive stress test and his management is going to be in the form of risk factor modification. MMODL / IJN: [id number] /
== END 2022-02-13 15:25 | disposition home or self-care (01) ==
LOC: CATHCVL 07:30
PROVIDERS: ATTEND Internal Medicine Cardiovascular Disease
DX: I25.10 Atherosclerotic heart disease of native coronary artery without angina pectoris (principal); E78.5 Hyperlipidemia, unspecified; Z82.49 Family history of ischemic heart disease and other diseases of the circulatory system
CPT/HCPCS: 93459; 80048; 85025; C1769 ×2; C1760; C1894; J2250; J2001; J3010; Q9967

== ENCOUNTER 2023-12-24 03:59 | Inpatient (IN) | payer OTHER ==
[2023-12-24] MEDS: ASPIRIN 81 MG PO STA (04:07)
[2023-12-24] MEDS: HEPARIN SODIUM 1,000 UN/ML (10ML VL) IV ONE (04:10)
[2023-12-24] MEDS: MORPHINE SULFATE 4 MG/ML SYRINGE IV STA (04:12)
[2023-12-24] MEDS ORDERED: HEPARIN SOD,PORK IN 0.45% NACL 25,000 UNIT in 0.45% NACL 1 250ML.BAG IV SCH (04:15)
--- NOTE | 2023-12-24 04:18 | ED ---
Chest Pain HPI - General Chief Complaint: Chest Pain Stated Complaint: STEMI Time Seen by Provider: 12/24/23 04:00 Source: EMS Mode of arrival: EMS - History of Present Illness MD Complaint: chest pain Onset/Timin -: hour(s) Onset: awoke with symptoms Pain Location: substernal Pain Radiation: none Severity: severe Quality: aching Consistency: constant Improves With: nothing Worsens With: nothing Anginal Symptoms: nausea, diaphoresis, dyspnea Treatments Prior to Arrival: aspirin - Related Data Home Medications Medication Instructions Recorded Confirmed Buprenorphine/Naloxone 8Mg/2Mg 1 - 2 film SUBLINGUAL DIRECTED 12/24/23 12/24/23 [Suboxone 8-2Mg Film] Previous Rx's Medication Instructions Recorded Aspirin 81 mg PO DAILY tab 12/26/23 Atorvastatin [Lipitor] 80 mg PO HS #90 tab 12/26/23 Nitroglycerin Sl Tabs [Nitrostat] 0.4 mg SUBLINGUAL Q5M PRN #25 tab 12/26/23 Ticagrelor [Brilinta] 90 mg PO BID #180 tab 12/26/23 lisinopriL [Zestril] 2.5 mg PO DAILY #180 tab 12/26/23 Allergies Allergy/AdvReac Type Severity Reaction Status Date / Time No Known Allergies Allergy Verified 12/24/23 04:03 Review of Systems ROS Statement: Those systems with pertinent positive or pertinent negative responses have been documented in the HPI. ROS Other: All systems not noted in ROS Statement are negative. Constitutional: Denies: fever, chills Respiratory: Reports: dyspnea. Denies: cough Cardiovascular: Reports: chest pain. Denies: palpitations, edema, syncope Gastrointestinal: Reports: nausea. Denies: abdominal pain, vomiting, diarrhea, melena, hematochezia Genitourinary: Denies: dysuria, hematuria Musculoskeletal: Denies: back pain Skin: Denies: rash Neurological: Denies: headache, weakness, numbness Hematological/Lymphatic: Denies: easy bleeding EKG Findings - EKG Results: EKG: interpreted by DENISE, sinus rhythm EKG shows: bradycardia (48 bpm) - VT, Pacemaker, Normal: Myocardial infarction: inferior VT (acute or recent) Past Medical History Past Medical History: Coronary Artery Disease (CAD), Chest Pain / Angina, Hypertension, Myocardial Infarction (VT), Osteoarthritis (OA) Additional Past Medical History / Comment(s): arthritis in back., See Cardiology H & P. Last Myocardial Infarction Date:: 10/2017 History of Any Multi-Drug Resistant Organisms: None Reported Past Surgical History: Coronary Bypass/CABG, Heart Catheterization, Orthopedic Surgery Additional Past Surgical History / Comment(s): cervical fusion, hand surgery- reattachment of his right thumb., CABG-([facility] 10/2017) Past Anesthesia/Blood Transfusion Reactions: No Reported Reaction Past Psychological History: No Psychological Hx Reported Smoking Status: Former smoker Past Alcohol Use History: None Reported Past Drug Use History: Cocaine, Marijuana, Prescription Drug Abuse - Past Family History Family Family Medical History: Coronary Artery Disease (CAD) Additional Family Medical History / Comment(s): . General Exam Limitations: no limitations General appearance: alert, in no apparent distress Head exam: Present: atraumatic, normocephalic Eye exam: Present: normal appearance. Absent: scleral icterus, conjunctival injection ENT exam: Present: normal oropharynx Neck exam: Present: normal inspection Respiratory exam: Present: normal lung sounds bilaterally. Absent: respiratory distress, wheezes, rales, rhonchi, stridor, accessory muscle use Cardiovascular Exam: Present: normal rhythm, bradycardia, normal heart sounds. Absent: systolic murmur, diastolic murmur, rubs, gallop GI/Abdominal exam: Present: soft. Absent: distended, tenderness, guarding, rebound, rigid, mass Extremities exam: Present: normal inspection, normal capillary refill. Absent: pedal edema, calf tenderness Back exam: Present: normal inspection. Absent: CVA tenderness (R), CVA tenderness (L) Neurological exam: Present: alert. Absent: oriented X3, CN II-XII intact Psychiatric exam: Present: normal affect. Absent: agitated, anxious Skin exam: Present: warm, dry, intact, cyanosis. Absent: rash Course Vital Signs 12/24/23 12/24/23 12/24/23 04:00 04:05 04:10 Temperature 97.6 F Pulse Rate 44 L 49 L 47 L Respiratory 18 16 16 Rate Blood Pressure 109/96 111/77 118/93 O2 Sat by Pulse 95 98 95 Oximetry 12/24/23 12/24/23 12/24/23 04:15 04:20 04:25 Temperature Pulse Rate 46 L 43 L 43 L Respiratory 16 18 16 Rate Blood Pressure 118/94 108/80 112/87 O2 Sat by Pulse 96 98 96 Oximetry Chest Pain MDM - MDM The patient had chest x-ray that I interpreted as negative for acute infiltrate, pneumothorax, congestive heart failure Was pt. sent in by a medical professional or institution (, ANGE, PRESS OFFICER, urgent care, hospital, or care home...) When possible be specific @ -[No] Did you speak to anyone other than the patient for history (EMS, parent, family, police, friend...)? What history was obtained from this source @ -[No] Did you review nursing and triage notes (agree or disagree)? Why? @ -[I reviewed and agree with nursing and triage notes] Were old charts reviewed (outside hosp., previous admission, EMS record, old EKG, old radiological studies, urgent care reports/EKG's, care home records)? Report findings @ -[No old charts were reviewed] Differential Diagnosis (chest pain, altered mental status, abdominal pain women, abdominal pain men, vaginal bleeding, weakness, fever, dyspnea, syncope, headache, dizziness, GI bleed, back pain, seizure, CVA, palpatations, mental health, musculoskeletal)? @ -[Differential Chest Pain: Stable Angina, Unstable Angina, STEMI, NSTEMI Aortic Dissection, Pneumothorax, Musculoskeletal, Esophageal Spasm GERD, Cholecystitis, Pancreatitis, Zoster, this is not meant to be an all-inclusive list. EKG interpreted by me (3pts min.). @ -[I interpreted as showing acute STEMI as above] X-rays interpreted by me (1pt min.). @ -[N I interpreted as above CT interpreted by me (1pt min.). @ -[None done] U/S interpreted by me (1pt. min.). @ -[None done] What testing was considered but not performed or refused? (CT, X-rays, U/S, labs)? Why? @ -[None] What meds were considered but not given or refused? Why? @ -[None] Did you discuss the management of the patient with other professionals (professionals i.e. ANGE Bonilla, PRESS OFFICER, lab, RT, psych nurse, social work therapist, electronic scale assembler and tester, teacher, army senior officer, human services case manager)? Give summary @ -[Case was discussed with cardiology on-call and the River Rafting Guide was activated. Case discussed with admitting physician Was smoking cessation discussed for >3mins.? @ -[Yes Was critical care preformed (if so, how long)? @ -[Yes, 30 minutes Were there social determinants of health that impacted care today? How? (Homelessness, low income, unemployed, alcoholism, drug addiction, transpo rtation, low edu. Level, literacy, decrease access to med. care, penitentiary, rehab)? @ -[No] Was there de-escalation of care discussed even if they declined (Discuss DNR or withdrawal of care, Hospice)? DNR status @ -[No] What co-morbidities impacted this encounter? (DM, HTN, Smoking, COPD, CAD, Cancer, CVA, ARF, Chemo, Hep., AIDS, mental health diagnosis, sleep apnea, morbid obesity)? @ -[Previous coronary artery bypass/smoking Was patient admitted / discharged? Hospital course, mention meds given and route, prescriptions, significant lab abnormalities, going to OR and other pertinent info. @ -[Patient is 53-year-old man here for chest pain found to have acute ST elevation VT. Undiagnosed new problem with uncertain prognosis? @ -[No] Drug Therapy requiring intensive monitoring for toxicity (Heparin, Nitro, Insulin, Cardizem)? @ -[Heparin Were any procedures done? @ -[No] Diagnosis/symptom? @ -[Acute ST elevation VT Acute, or Chronic, or Acute on Chronic? @ -[Acute Uncomplicated (without systemic symptoms) or Complicated (systemic symptoms)? @ -[Uncomplicated Side effects of treatment? @ -[No] Exacerbation, Progression, or Severe Exacerbation? @ -[No] Poses a threat to life or bodily function? How? (Chest pain, [place], VT, pneumonia, PE, COPD, DKA, ARF, appy, cholecystitis, CVA, Diverticulitis, Homicidal, Suicidal, threat to staff... and all critical care pts) @ -[Yes Disposition Clinical Impression: ST elevation myocardial infarction (STEMI) Disposition: ADMITTED IP TO THIS HOSP Condition: Good Is patient prescribed a controlled substance at d/c from ED?: No
[2023-12-24] MEDS: NITROGLYCERIN SL TABS 0.4 MG TAB SUBLINGUAL PRN (04:23)
[2023-12-24] MEDS: SODIUM CHLORIDE 0.9% 1,000 ML IV ONE ×3 (04:25→06:23)
--- NOTE | 2023-12-24 04:43 | XR ---
EXAM: XR Chest, 1 View CLINICAL HISTORY: ITS.REASON XR Reason: chest pain TECHNIQUE: Frontal view of the chest. COMPARISON: CXR October 29, 2017. FINDINGS: Lungs: Unremarkable. No consolidation. Pleural space: Unremarkable. No pneumothorax. Heart: Cardiomegaly. Mediastinum: Unremarkable. Normal mediastinal contour. Bones/joints: Sternotomy wires. No acute fracture. IMPRESSION: No consolidation.
[2023-12-24] MEDS: LIDOCAINE 1% INJ 10MG/ML (20 ML MDV) SQ ONE (04:46)
[2023-12-24] MEDS: MIDAZOLAM 2 MG/2 ML VIAL IVP ONE (04:47)
[2023-12-24] MEDS: ATROPINE SULFATE 0.1 MG/ML 10ML SYRINGE IVP ONE ×2 (04:47→04:49)
[2023-12-24] MEDS ORDERED: fentaNYL (PF) 50 MCG/ML 2 ML AMP ONE (04:51)
[2023-12-24] MEDS: fentaNYL (PF) 50 MCG/ML 2 ML AMP IVP ONE (04:55)
[2023-12-24 05:05] LABS: ALT 29 U/L (4-49); AST 37 U/L (17-59); African American GFR (CKD) >90 (>60 ml/min/1.73 sqM); Albumin 4.2 g/dL (3.5-5.0); Alkaline Phosphatase 51 U/L (38-126); Anion Gap 8 mmol/L; Blood Urea Nitrogen 22 mg/dL (9-20); Calcium 8.9 mg/dL (8.4-10.2); Carbon Dioxide 22 mmol/L (22-30); Chloride 108 mmol/L (98-107); Glucose 149 mg/dL (74-99); Magnesium 1.8 mg/dL (1.6-2.3); Non-African American GFR(CKD) >90 (>60 ml/min/1.73 sqM); Potassium 4.5 mmol/L (3.5-5.1); Sodium 138 mmol/L (137-145); Total Protein 6.9 g/dL (6.3-8.2)
[2023-12-24] MEDS ORDERED: TICAGRELOR 90 MG TAB ONE (05:09)
[2023-12-24 05:11] LABS: HCT 49.1 % (39.0-53.0); HGB 15.8 gm/dL (13.0-17.5); MCH 30.9 pg (25.0-35.0); MCHC 32.2 g/dL (31.0-37.0); Mean Platelet Volume 8.1; Platelet Count 231 k/uL (150-450); RBC 5.11 m/uL (4.30-5.90); RDW 14.1 % (11.5-15.5); WBC 9.5 k/uL (3.8-10.6)
[2023-12-24] MEDS: TICAGRELOR 90 MG TAB PO ONE (05:14)
[2023-12-24] MEDS: HEPARIN SODIUM 1,000 UN/ML (10ML VL) IVP ONE ×3 (05:14→05:42)
[2023-12-24 05:20] LABS: Prothrombin Time 11.2 sec (10.0-12.5)
[2023-12-24 05:21] LABS: Partial Thromboplastin Time 23.7 sec (22.0-30.0)
--- NOTE | 2023-12-24 05:31 | P.CRDCN ---
History of Present Illness Consult date: 12/24/23 History of present illness: HISTORY OF PRESENTING ILLNESS 53-year-old male with past medical history of smoking, substance abuse on Suboxone, concerns of noncompliance. He in October 2027 patient presented to [facility] with concerns of STEMI. Heart catheterization at that time showed multivessel disease. He ended up getting three-vessel CABG with NUÑEZ to LAD, SVG to PDA and SVG to OM In 2021 he was seen on outpatient basis and had an abnormal Lexiscan for which she had a cardiac catheterization done. It showed severe [place] vessel disease with patent NUÑEZ to LAD SVG to OM and SVG to PDA. Today patient presents to the hospital with substernal chest pain that woke him up from sleep. He describes his pain 10/10, substernal radiated to his back. He is also diaphoretic and reports a sense of impending doom. He reports symptoms are similar to what it was in 2018. Patient reports that he is not taking his cardiac medications at this time. He has not seen any air press operator recently. On admission his ECG showed complete heart block with junctional rhythm heart rate 43 bpm, ST elevations in 2 3 aVF along with reciprocal ST changes in anterolateral leads. CXR does not show signs of pulmonary congestion or consolidation He denies any bleeding diathesis. He denies any history of stroke. REVIEW OF SYSTEMS 14 point review of system is negative except what is mentioned above in HPI. PHYSICAL EXAMINATION Vital signs reviewed. Patient is in acute distress Head: Normocephalic. Eyes: Sclerae nonicteric. Neck: Brisk carotid upstroke, no jugular venous distention. Lungs: Clear to auscultation. Heart: Regular rate and rhythm, S1-S2, no S3, no murmur or rub. Abdomen: Soft nontender, positive bowel sounds. Extremities: No edema, intact distal pulses. Neuro: Alert, oritented, no focal deficits. Detailed neuro exam was not performed. ASSESSMENT Acute inferior wall STEMI Prior history of CAD status post CABG in 2018 with NUÑEZ to LAD SVG to PDA SVG to OM Cardiac testing Echo 2021 EF 55%, no major valvular abnormality Cath 2021, severe [place] vessel disease, patent NUÑEZ SVG to OM and PDA. PLAN Plan for emergent cardiac catheterization procedure risk factors of possible ID and stroke were discussed with the patient. Patient agreed to proceed to the Paint Crew Supervisor understanding the risk factors Further recommendation to follow cardiac cath results Alejandro Cobb MD, FACC, RPVI Thank you for allowing [facility] to participate in this patient's care. Feel free to reach out in case of any followup questions. Past Medical History Past Medical History: Coronary Artery Disease (CAD), Chest Pain / Angina, Hypertension, Myocardial Infarction (ID), Osteoarthritis (OA) Additional Past Medical History / Comment(s): arthritis in back., See Cardiology H & P. Last Myocardial Infarction Date:: 10/2017 History of Any Multi-Drug Resistant Organisms: None Reported Past Surgical History: Coronary Bypass/CABG, Heart Catheterization, Orthopedic Surgery Additional Past Surgical History / Comment(s): cervical fusion, hand surgery- reattachment of his right thumb., CABG-([facility] 10/2017) Past Anesthesia/Blood Transfusion Reactions: No Reported Reaction Past Psychological History: No Psychological Hx Reported Smoking Status: Former smoker Past Alcohol Use History: None Reported Past Drug Use History: Cocaine, Marijuana, Prescription Drug Abuse - Past Family History Family Family Medical History: Coronary Artery Disease (CAD) Additional Family Medical History / Comment(s): . Medications and Allergies Home Medications Medication Instructions Recorded Confirmed Type Aspirin [Adult Low Dose Aspirin EC] 81 mg PO DAILY 02/10/22 02/13/22 History Atorvastatin [Lipitor] 40 mg PO HS 02/10/22 02/13/22 History Nitroglycerin Sl Tabs [Nitrostat] 0.4 mg SUBLINGUAL Q5M PRN 02/10/22 02/10/22 History Metoprolol Tartrate [Lopressor] 25 mg PO BID 02/13/22 02/13/22 History Allergies Allergy/AdvReac Type Severity Reaction Status Date / Time No Known Allergies Allergy Verified 12/24/23 04:03 Physical Exam Vitals: Vital Signs Temp Pulse Resp BP Pulse Ox 12/24/23 04:30 43 L 18 115/86 96 12/24/23 04:25 43 L 16 112/87 96 12/24/23 04:20 43 L 18 108/80 98 12/24/23 04:15 46 L 16 118/94 96 12/24/23 04:10 47 L 16 118/93 95 12/24/23 04:05 49 L 16 111/77 98 12/24/23 04:00 97.6 F 44 L 18 109/96 95 Intake and Output 12/23/23 12/23/23 12/24/23 14:59 22:59 06:59 Other: Weight 90.718 kg Results Coagulation 12/24/23 Range/Units 04:12 PT 11.2 (10.0-12.5) sec APTT 23.7 (22.0-30.0) sec Current Medications Generic Name Dose Route Start Last Admin Trade Name Freq PRN Reason Stop Dose Admin Heparin Sodium/Sodium Chloride 250 mls @ 10 mls/hr 12/24/23 04:15 25,000 unit/ Sodium Chloride IV .Q24H [facility] Protocol 11.023 UNITS/KG/HR Nitroglycerin 0.4 mg 12/24/23 04:04 12/24/23 04:23 Nitroglycerin Sl Tabs 0.4 Mg Tab SUBLINGUAL 0.4 mg Q5M PRN Administration Chest Pain Intake and Output 12/23/23 12/23/23 12/24/23 14:59 22:59 06:59 Other: Weight 90.718 kg Patient Weight 12/24/23 06:59 Weight 90.718 kg
--- NOTE | 2023-12-24 05:39 | P.CARDCATH ---
Date of Procedure: 12/24/23 Description of Procedure: DIAGNOSTIC CORONARY ANGIOGRAPHY and LEFT HEART CATH REPORT PROCEDURES PERFORMED: Left heart catheterization Selective coronary angiography Moderate conscious sedation 20 mins Right common femoral access Right common femoral arteriogram INDICATION: Acute inferior wall STEMI Prior history of CABG in 2018 with NUÑEZ to LAD, SVG to PDA SVG to OM. Last heart cath in 2021 did not show any occlusion of grafts but had severe [place] vessel disease. This time presented with substernal chest pain. Admission ECG shows ST elevation in inferior lead along with complete heart block with junctional rhythm. CONSENT: I have discussed the risks, benefits and alternative therapies for the above-mentioned procedure, sedation/analgesia and necessary blood product administration (if indicated, as they pertain to this patient). The patient has indicated understanding and acceptance of the risks and procedures discussed. Conscious Sedation: Patient's ECG, heart rate, blood pressure, pulse oximetry was monitored throughout the duration of procedure under the direct supervision. [1] mg Versed and 25 mg Fentanyl were used for induction of moderate conscious sedation. Total duration of 20 minutes. PROCEDURE:After the risks, benefits and alternatives of the above mentioned procedure explained in detail with the patient, informed consent was obtained. Patient was taken to the catheterization lab and prepped and draped in usual sterile fashion. Ultrasound was used to identify the right common femoral artery. 1% lidocaine was infiltrated over the right common femoral artery. Using ultrasound arterial access was obtained using micropuncture needle. A 6-Romanian sheath was placed in the right coomon femoral artery using modified Seldinger technique. J tipped wire was advanced under fluoroscopic guidance. Right common femoral artery angiogram was performed. The sheath placement was appropriate. Over the wire JR4 diagnostic catheter was advanced in the aortic root. Along with the wire, the catheter was manipulated to cross the aortic valve to enter the LV. The wire was removed and the catheter was placed. LV pressures were obtained. A pullback was performed. The catheter was manipulated to selectively engage the right coronary ostium. Right coronary angiogram was performed in different angiographic projections. The catheter was disengaged and manipulated to selectively engage the SVG graft to the PDA. Angiogram was performed in different angiographic projections. The catheter was disengaged and manipulated to enter the left subclavian artery. Nonselective left subclavian artery angiogram was performed to opacify the NUÑEZ graft. NUÑEZ angiogram was performed. After review of images, decision was made to proceed with emergent intervention of 100% occlusion of SVG to PDA. Left coronary angiogram and SVG to OM angiogram was not performed and will be performed after intervention to be the door to balloon time. HEMODYNAMICS: Aortic Pressure: 158/91 mmHg. LV pressure: 158/20 mmHg. LVEDP 30 mmHg. SELECTIVE CORONARY ARTERIOGRAPHY: RIGHT CORONARY ARTERY: Severe obstructive disease with 100% occlusion in mid RCA. This is unchanged from prior exam in 2021 GRAFT ANGIOGRAPHY: Saphenous vein graft to PDA: 100% thrombotic occlusion of mid saphenous vein graft with KAMAR 0 flow. NUÑEZ graft to LAD: Widely patent. Anastomosed to mid LAD. LAD beyond the site of anastomosis has diffuse severe disease. Overall poor distal runoff. IMPRESSION: 100% thrombotic occlusion of mid SVG to PDA with KAMAR 0 flow Patent NUÑEZ to LAD Severe [place] RCA disease , unchanged from 2021 PLAN: Plan for emergent PCI of SVG to PDA Left coronary angiogram and angiogram of vein graft to OM to be performed after intervention Performing Physician Alejandro Cobb MD [facility], RPVI Thank you for allowing [facility] to participate in this patient's care. Feel free to reach out in case of any followup questions.
[2023-12-24] MEDS: IOPAMIDOL-370 200ML BTL INJ ONE (05:59)
[2023-12-24 06:10] LABS: Eosinophils # (M) 0.38 k/uL (0-0.7); Lymphocytes # (M) 5.42 k/uL (1.0-4.8); Monocytes # (M) 0.67 k/uL (0-1.0); Neutrophils # (M) 3.04 k/uL (1.3-7.7); Neutrophils % (M) 32 %; Nucleated Red Blood Cells 0 /100 WBC (0-0); Total Cells Counted 100
[2023-12-24 06:12] LABS: Tear Drop Cells Present
[2023-12-24] MEDS: IOPAMIDOL-370 100ML BTL INJ ONE (06:22)
[2023-12-24] MEDS ORDERED: RX INFO: IV CONTRAST WAS GIVEN 1 EACH MISC MISCELLANE PRN (06:26)
[2023-12-24] MEDS ORDERED: NITROGLYCERIN SL TABS 0.4 MG TAB SUBLINGUAL PRN (06:26)
[2023-12-24] MEDS ORDERED: MAG HYDROX/AL HYDROX/SIMETH 30 ML CUP PO PRN (06:26)
[2023-12-24] MEDS ORDERED: ZOLPIDEM 5 MG TAB PO PRN (06:26)
[2023-12-24] MEDS ORDERED: ATROPINE SULFATE 0.1 MG/ML 10ML SYRINGE IV PRN (06:26)
--- NOTE | 2023-12-24 06:37 | P.CARDCATH ---
Date of Procedure: 12/24/23 Description of Procedure: PERCUTANEOUS TRANSLUMINAL CORONARY ANGIOPLASTY CLINICAL INFORMATION: The patient is a 53-year-old male, history of CAD, status post CABG in 2018, noncompliance who has not been followed on a regular basis and presented with an acute inferior wall myocardial infarction, underwent c ardiac catheterization by Dr. Cobb and was found to have acutely occluded SVG to the RCA. Recommendations were made regarding angioplasty and stenting. The procedure as well as the risks and the complications were discussed with the patient who was in full understanding and agreement. PROCEDURE: A 6 B[place]udian RCB guiding catheter was introduced into the system. After cannulating the ostium to the RCA, a 0.014 whisper J-wire was advanced across the lesion and positioned distally with the help of a fine cross. Subsequently the wire was exchanged to a 0.014 BMW J-wire. Following that a 2.5 x 12 trek balloon was advanced and inflated at 8 atmosphere. 3 inflation in the graft were done. Following that an export catheter was introduced and 2 runs were done with removal of large amount of thrombotic material. Following that a 3.0 x 38 mm Xience brayan point stent was deployed. It was dilated at 16 santiago. After removing the balloon a 3.5 x 45 mm Xience brayan point stent was deployed distal to the first 1 at 16 santiago. After removing the balloon and [place] IVUS catheter was introduced and images were obtained. Subsequently a 4.0 x 20 mm NC trek balloon was advanced and inflations through both stents at 10 santiago were done. After the last inflation, after appropriate wait, the balloon and the guidewire were withdrawn back into the guiding catheter. Images were obtained and repeated. Those images reveal stable successful stenting. After removing the catheter the 6 Bermudian right Marnie catheter was used to cannulate the SVG to the OM and subsequently a 6 Bermudian 4 bend left Marnie was used to obtain images to the left coronary system. Images were obtained. At that point, the guiding catheter, the balloon, and guidewire were removed. The sheath was removed. Hemostasis was obtained with Angio-Seal. There were no immediate complications. The patient was returned to the room in stable condition. Of note, the patient received 5000 units of heparin as well as lewis grelor. His ACT was followed. There was no immediate complications. His pain resolved at the end of the procedure and there was resolution of his ST segment elevation RESULTS: Successful stenting of the SVG to the RCA with reduction of stenosis from 100% to less than 5% with IVUS imaging and KAMAR-3 flow Chronically occluded SVG to the OM. Chronically occluded mid LAD with diffuse proximal disease Diffuse severe disease in the left circumflex subtotally occluded proximal circumflex. To the OM 1 and 2. RECOMMENDATIONS: The patient will continue on aspirin and Brilinta without any interruption for 1 year in addition to aggressive coronary risks modifications, attempting to maintain LDL below 70 mg/dL. The importance of smoking cessation was discussed with him the findings and recommendations were discussed with the patient and the family, they are in full understanding and agreement. Duration of sedation: 71 minutes
[2023-12-24 06:43] LABS: Glucose,Whole Blood 173 mg/dL (70-110)
[2023-12-24] MEDS: TICAGRELOR 90 MG TAB PO SCH (09:37)
[2023-12-24] MEDS: ASPIRIN 81 MG PO SCH (09:37)
[2023-12-24 11:37] LABS: Chol/HDL Ratio 6.29 Ratio; LDL Cholesterol,Calculated 124.5 mg/dL (0.0-131.0)
--- NOTE | 2023-12-24 11:53 | CA ---
Transthoracic Echo Report Name: Oswaldo Page Age: 53 Gender: M : 1970 Exam Date: 12/24/2023 08:53 Exam Location: [facility] Ht (in): 68 Wt (lb): 200 Ordering Physician: Alejandro Cobb MD ([id number]) Attending/Referring Phys: Cnc Applications Engineer Mary Kay Lilly RDCS Procedure CPT: Indications: inferior stemi Cardiac Hx: Technical Quality: Technically difficult study Contrast 1: Definity Total Dose (mL): 2 Contrast 2: Total Dose (mL): MEASUREMENTS (Male / Female) Normal Values 2D ECHO LV Diastolic Diameter PLAX 4.6 cm 4.2 - 5.9 / 3.9 - 5.3 cm LV Systolic Diameter PLAX 3.7 cm IVS Diastolic Thickness 1.4 cm 0.6 - 1.0 / 0.6 - 0.9 cm LVPW Diastolic Thickness 1.4 cm 0.6 - 1.0 / 0.6 - 0.9 cm LV Relative Wall Thickness 0.6 RV Internal Dim ED PLAX 4.1 cm LV Diastolic Volume MOD BP 94.8 cm??? 67 - 155 / 56 - 104 cm??? LV Systolic Volume MOD BP 60.6 cm??? 22 - 58 / 19 - 49 cm??? LV Ejection Fraction MOD BP 36.1 % >= 55 % LV Cardiac Index MOD BP 1166.0 cm???/min???m??? LV Diastolic Volume MOD 4C 98.0 cm??? LV Systolic Volume MOD 4C 63.4 cm??? LV Ejection Fraction MOD 4C 35.3 % LV Cardiac Index MOD 4C 1179.1 cm???/min???m??? LV Diastolic Length 4C 8.5 cm LV Systolic Length 4C 8.0 cm LV Diastolic Volume MOD 2C 84.2 cm??? LV Systolic Volume MOD 2C 58.3 cm??? LV Ejection Fraction MOD 2C 30.7 % LV Cardiac Index MOD 2C 881.9 cm???/min???m??? LV Diastolic Length 2C 9.3 cm LV Systolic Length 2C 8.2 cm LA Volume 60.3 cm??? 18 - 58 / 22 - 52 cm??? LA Volume Index 28.6 cm???/m??? 16 - 28 cm???/m??? M-MODE LV Diastolic Diameter MM 6.9 cm 4.2 - 5.9 / 3.9 - 5.3 cm LV Systolic Diameter MM 5.0 cm LV Cardiac Index MM Teich 4474.3 cm???/min???m??? IVS Diastolic Thickness MM 0.6 cm 0.6 - 1.0 / 0.6 - 0.9 cm LVPW Diastolic Thickness MM 0.7 cm 0.6 - 1.0 / 0.6 - 0.9 cm LV Relative Wall Thickness MM 0.2 0.24 - 0.42 / 0.22 - 0.42 LV Mass Index MM 96.4 g/m??? 49 - 115 / 43 - 95 g/m??? Aortic Root Diameter MM 2.7 cm LA Systolic Diameter MM 4.5 cm LA Ao Ratio MM 1.7 DOPPLER AV Peak Velocity 148.2 cm/s AV Peak Gradient 8.8 mmHg AV Mean Velocity 102.9 cm/s AV Mean Gradient 4.8 mmHg AV Velocity Time Integral 34.9 cm LVOT Peak Velocity 91.1 cm/s LVOT Peak Gradient 3.3 mmHg LVOT Velocity Time Integral 21.1 cm MV Area PHT 2.6 cm??? Mitral E Point Velocity 73.5 cm/s Mitral A Point Velocity 59.9 cm/s Mitral E to A Ratio 1.2 MV Deceleration Time 290.7 ms MV E' Velocity 7.7 cm/s Mitral E to MV E' Ratio 9.5 TR Peak Velocity 173.4 cm/s TR Peak Gradient 12.0 mmHg Right Ventricular Systolic Press 17.0 mmHg FINDINGS Left Ventricle Mildly increased septal wall thickness. Severely increased left ventricular diastolic diameter. Mildly increased left ventricular systolic volume. Moderately decreased left ventricular ejection fraction. Reduced global left ventricular systolic function. Left ventricular ejection fraction is estimated at 40 %. Grade 1 diastolic dysfunction. Right Ventricle Normal right ventricular size and function. Right ventricular systolic pressure within normal limits. Right Atrium Right atrium not well visualized. Left Atrium Mildly increased left atrial volume. Mitral Valve Structurally normal mitral valve. Mitral annular calcification. Moderate mitral regurgitation. Aortic Valve Trileaflet aortic valve. No aortic valve stenosis or regurgitation. Thickened aortic valve without stenosis. Tricuspid Valve Structurally normal tricuspid valve. Mild tricuspid regurgitation. Pulmonic Valve Structurally normal pulmonic valve. Pericardium No pericardial effusion. Aorta Normal size aortic root and proximal ascending aorta. CONCLUSIONS Technically difficult study for interpretation Impaired LV systolic function with EF around 40% with mid ventricle and basal hypokinesia Moderate mitral regurgitation Previewed by: Dr. Neri Starkey MD (Electronically Signed) Final Date: 24 December 2023 11:52
[2023-12-24 11:57] VITALS: BMI 30.4
--- NOTE | 2023-12-24 13:00 | P.HPIM ---
History of Present Illness H&P Date: 12/24/23 History of present illness; patient is a 53-year-old gentleman with past medical history significant for coronary disease s/p CABG, hypertension who presented to the ER for chest pain. Patient stated that he was all right last night when he was woken up from sleep with chest pain that was central location, sharp, 10 x 10 intensity, radiating to his back, no complaint of nausea or vomiting but com plaining of diaphoresis at the time. Patient was concerned that this pain was similar to his previous episode when he had the CABG. Because of the chest pain, patient came to the ER Hello Initial lab work done in the ER showed WBC 9.5, hemoglobin 15.8, platelet count 231, sodium 1 3, potassium 4.5, BUN 22, creatinine 0.74, glucose 149, troponin 0.115 EKG done in the ER showed heart rate of 43, ST segment elevation was noticeable in leads II, III and aVF. Systems Admin was activated and patient went for urgent cardiac cath. Cardiac cath was done with successful stenting of the SVG to the RCA with reduction of stenosis from 100% to less than 5% with IVUS imaging and KAMAR-3 flow,Chronically occluded SVG to the OM.Chronically occluded mid LAD with diffuse proximal disease, Diffuse severe disease in the left circumflex subtotally occluded proximal circumflex. To the OM 1 and 2. Patient admitted to internal medicine service REVIEW OF SYSTEMS: CONSTITUTIONAL: No fever, no malaise, no fatigue. HEENT: No recent visual problems or hearing problems. Denied any sore throat. CARDIOVASCULAR: As mentioned above PULMONARY: No shortness of breath, no cough, no hemoptysis. GASTROINTESTINAL: No diarrhea, no nausea, no vomiting, no abdominal pain. NEUROLOGICAL: No headaches, no weakness, no numbness. HEMATOLOGICAL: Denies any bleeding or petechiae. GENITOURINARY: Denies any burning micturition, frequency, or urgency. MUSCULOSKELETAL/RHEUMATOLOGICAL: Denies any joint pain, swelling, or any muscle pain. ENDOCRINE: Denies any polyuria or polydipsia. The rest of the 14-point review of systems is negative. PHYSICAL EXAMINATION: GENERAL: The patient is alert and oriented x3, not in any acute distress. Well developed, well nourished. HEENT: Pupils are round and equally reacting to light. EOMI. No scleral icterus. No conjunctival pallor. Normocephalic, atraumatic. No pharyngeal erythema. No thyromegaly. CARDIOVASCULAR: S1 and S2 present. No murmurs, rubs, or gallops. PULMONARY: Chest is clear to auscultation, no wheezing or crackles. ABDOMEN: Soft, nontender, nondistended, normoactive bowel sounds. No palpable organomegaly. MUSCULOSKELETAL: No joint swelling or deformity. EXTREMITIES: No cyanosis, clubbing, or pedal edema. NEUROLOGICAL: Gross neurological examination did not reveal any focal deficits. SKIN: No rashes. Assessment and plan Acute inferior wall STEMI History of CAD status post CABG in 2018 with NUÑEZ to LAD SVG to PDA SVG to OM Bradycardia Hypertension Hyperlipidemia History of substance abuse Monitor vital signs Monitor CBC Monitor CMP Continue telemetry monitoring S/p successful stenting of the SVG to the RCA with reduction of stenosis from 100% to less than 5% with IVUS imaging and KAMAR-3 flow,Chronically occluded SVG to the OM.Chronically occluded mid LAD with diffuse proximal disease, Diffuse severe disease in the left circumflex subtotally occluded proximal circumflex. To the OM 1 and 2. Continue dual antiplatelet therapy in the form of aspirin and Brilinta Continue lisinopril Cardiology following Labs and medication were reviewed.. Continue same treatment. Continue with symptomatic treatment. Resume home medication. Monitor labs and vitals. DVT and GI prophylaxis. Further recommendations as per clinical course of the patient Dictation was produced using [employer] dictation software. please excuse any gramm atical, word or spelling errors. Past Medical History Past Medical History: Coronary Artery Disease (CAD), Chest Pain / Angina, Hypertension, Myocardial Infarction (VT), Osteoarthritis (OA) Additional Past Medical History / Comment(s): arthritis in back., See Cardiology H & P. Last Myocardial Infarction Date:: 10/2017 History of Any Multi-Drug Resistant Organisms: None Reported Past Surgical History: Coronary Bypass/CABG, Heart Catheterization, Orthopedic S urgery Additional Past Surgical History / Comment(s): cervical fusion, hand surgery- reattachment of his right thumb., CABG-([facility] 10/2017) Past Anesthesia/Blood Transfusion Reactions: No Reported Reaction Past Psychological History: No Psychological Hx Reported Smoking Status: Former smoker Past Alcohol Use History: None Reported Past Drug Use History: Cocaine, Marijuana, Prescription Drug Abuse - Past Family History Family Family Medical History: Coronary Artery Disease (CAD) Additional Family Medical History / Comment(s): . Medications and Allergies Home Medications Medication Instructions Recorded Confirmed Type Buprenorphine/Naloxone 8Mg/2Mg 1 - 2 film SUBLINGUAL DIRECTED 12/24/23 12/24/23 History [Suboxone 8-2Mg Film] Allergies Allergy/AdvReac Type Severity Reaction Status Date / Time No Known Allergies Allergy Verified 12/24/23 04:03 Physical Exam Vitals: Vital Signs Temp Pulse Resp BP Pulse Ox 12/24/23 10:00 61 12 143/94 95 12/24/23 09:00 58 L 12 118/80 95 12/24/23 08:00 97.4 F L 59 L 13 144/85 96 12/24/23 07:05 54 L 144/85 91 L 12/24/23 07:00 96.7 F L 60 16 144/85 92 L 12/24/23 06:55 59 L 10 L 144/85 90 L 12/24/23 06:50 67 19 90 L 12/24/23 06:49 65 14 90 L 12/24/23 04:35 115/87 12/24/23 04:30 43 L 18 115/86 96 12/24/23 04:25 43 L 16 112/87 96 12/24/23 04:20 43 L 18 108/80 98 12/24/23 04:15 46 L 16 118/94 96 12/24/23 04:10 47 L 16 118/93 95 12/24/23 04:05 49 L 16 111/77 98 12/24/23 04:00 97.6 F 44 L 18 109/96 95 Intake and Output 12/23/23 12/24/23 12/24/23 22:59 06:59 14:59 Intake Total 950 270 Output Total 1300 Balance 950 -1030 Intake: IV 950 270 Sodium Chloride 0.9% 1, 270 000 ml In Empty Bag 1 bag @ 1 ML/KG/HR 90.718 mls/ hr IV .[id number] [facility] Rx#: [id number] Output: Urine 1300 Other: Voiding Method Urinal Weight 90.718 kg Results CBC & Chem 7: 12/24/23 04:12 12/24/23 04:12 Labs: Abnormal Lab Results - Last 24 Hours (Table) 12/24/23 12/24/23 12/24/23 Range/Units 04:12 04:12 04:12 Lymphocytes # (Manual) 5.42 H (1.0-4.8) k/uL Chloride 108 H (98-107) mmol/L BUN 22 H (9-20) mg/dL Glucose 149 H (74-99) mg/dL POC Glucose (mg/dL) (70-110) mg/dL Troponin I 0.115 H* (0.000-0.034) ng/mL 12/24/23 Range/Units 06:40 Lymphocytes # (Manual) (1.0-4.8) k/uL Chloride (98-107) mmol/L BUN (9-20) mg/dL Glucose (74-99) mg/dL POC Glucose (mg/dL) 173 H (70-110) mg/dL Troponin I (0.000-0.034) ng/mL
[2023-12-24] MEDS: NON FORMULARY DRUG (Buprenorphine/Naloxone 8mg/2mg 1 EACH Film) SUBLINGUAL SCH (14:42)
[2023-12-24] MEDS: SODIUM CHLORIDE 0.9% 1,000 ML in EMPTY BAG 1 BAG IV SCH (14:42)
[2023-12-24] MEDS: ATORVASTATIN 80 MG TAB PO SCH (20:19)
--- NOTE | 2023-12-25 07:56 | P.PN ---
Subjective Progress Note Date: 12/25/23 PROGRESS NOTE The patient is a 53-year-old male, with known history of CAD, status post CABG who presented with an acute inferior wall myocardial infarction and underwent stenting of the acutely occluded SVG to the PDA. He has chronically occluded SVG to the OM with patent NUÑEZ to the LAD. He is feeling well this morning. He denies any chest discomfort. His breathing is stable. He has episodes of sinus bradycardia. His blood pressure is on the low side but stable. He had no evidence of malignant arrhythmia. His echocardiogram showed ejection fraction of around 40% with mid ventricular and basal hypokinesis and moderate mitral regurgitation. Medications: Aspirin, Lipitor 80 mg daily, Brilinta 90 mg twice a day, Zestril 2.5 mg daily. PHYSICAL EXAMINATION: Blood pressure 110/70 heart rate 54 LUNGS: Clear to auscultation HEART: Regular rate and rhythm, S1, S2. No S3. Systolic ejection murmur ABDOMEN: Soft, nontender, no organomegaly EXTREMETIES: No edema, right groin no hematoma LAB: Pending IMPRESSION: 1. Status post STEMI with acutely occluded SVG to the PDA status post stenting 2. Status post CABG with chronically occluded SVG to the OM 3. History of hyperlipidemia 4. History of noncompliance 5. Ischemic cardiomyopathy PLAN: 1. Increase physical activity 2. Transfer to telemetry 3. Continue holding beta-yaakov for now because of sinus bradycardia 4. If stable probable discharge home in 24 hours Objective - Vital Signs Vital signs: Vital Signs Temp 98.1 F 12/25/23 04:00 Pulse 51 L 12/25/23 07:00 Resp 13 12/25/23 07:00 BP 94/77 12/25/23 07:00 Pulse Ox 94 L 12/25/23 07:00 FiO2 Intake & Output 12/24/23 12/25/23 12/25/23 18:59 06:59 18:59 Intake Total 1330 650 Output Total 1650 700 0 Balance -320 -50 0 Weight 90.718 kg 88.1 kg Intake: IV 630 Sodium Chloride 0.9% 1, 630 000 ml In Empty Bag 1 bag @ 1 ML/KG/HR 90.718 mls/ hr IV .Q11H2M MARICRUZ Rx#: [id number] Oral 700 650 Output: Urine 1650 700 0 Other: Voiding Method Urinal Urinal # Voids 1 - Labs CBC & Chem 7: 12/24/23 04:12 12/24/23 04:12 Labs: Abnormal Lab Results - Last 24 Hours (Table) 12/24/23 Range/Units 04:12 Triglycerides 227.00 H (0.00-149.00) mg/dL Cholesterol 202.00 H (0.00-200.00) mg/dL VLDL Cholesterol, Calc 45.40 H (5.00-40.00) mg/dL HDL Cholesterol 32.10 L (40.00-60.00) mg/dL
[2023-12-25 12:17] LABS: African American GFR (CKD) >90 (>60 ml/min/1.73 sqM); Anion Gap 6 mmol/L; Blood Urea Nitrogen 12 mg/dL (9-20); Calcium 9.1 mg/dL (8.4-10.2); Carbon Dioxide 23 mmol/L (22-30); Chloride 111 mmol/L (98-107); Glucose 97 mg/dL (74-99); Non-African American GFR(CKD) >90 (>60 ml/min/1.73 sqM); Potassium 4.5 mmol/L (3.5-5.1); Sodium 140 mmol/L (137-145)
--- NOTE | 2023-12-25 14:31 | P.PN ---
Subjective Progress Note Date: 12/25/23 patient is a 53-year-old gentleman with past medical history significant for coronary disease s/p CABG, hypertension who presented to the ER for chest pain. Patient stated that he was all right last night when he was woken up from sleep with chest pain that was central location, sharp, 10 x 10 intensity, radiating to his back, no complaint of nausea or vomiting but complaining of diaphoresis at the time. Patient was concerned that this pain was similar to his previous episode when he had the CABG. Because of the chest pain, patient came to the ER Hello Initial lab work done in the ER showed WBC 9.5, hemoglobin 15.8, platelet count 231, sodium 1 3, potassium 4.5, BUN 22, creatinine 0.74, glucose 149, troponin 0.115 EKG done in the ER showed heart rate of 43, ST segment elevation was noticeable in leads II, III and aVF. Retail Support Specialist was activated and patient went for urgent cardiac cath. Cardiac cath was done with successful stenting of the SVG to the RCA with reduction of stenosis from 100% to less than 5% with IVUS imaging and KAMAR-3 flow,Chronically occluded SVG to the OM.Chronically occluded mid LAD with diffuse proximal disease, Diffuse severe disease in the left circumflex subtotally occluded proximal circumflex. To the OM 1 and 2. Patient admitted to internal medicine service 12/24. Patient seen and examined. Denies any chest pain. Denies any lightness or dizziness. REVIEW OF SYSTEMS: CONSTITUTIONAL: No fever, no malaise,. CARDIOVASCULAR: No chest pain, no palpitations, no syncope. PULMONARY: No shortness of breath, no cough, GASTROINTESTINAL: No diarrhea, no nausea, no vomiting, no abdominal pain. NEUROLOGICAL: No headaches, no weakness, PHYSICAL EXAMINATION: GENERAL: The patient is alert and oriented x3, not in any acute distress. Well developed, well nourished. HEENT: Pupils are round and equally reacting to light. EOMI. No scleral icterus. No conjunctival pallor. Normocephalic, atraumatic. No pharyngeal erythema. No thyromegaly. CARDIOVASCULAR: S1 and S2 present. No murmurs, rubs, or gallops. PULMONARY: Chest is clear to auscultation, no wheezing or crackles. ABDOMEN: Soft, nontender, nondistended, normoactive bowel sounds. No palpable organomegaly. MUSCULOSKELETAL: No joint swelling or deformity. EXTREMITIES: No cyanosis, clubbing, or pedal edema. NEUROLOGICAL: Gross neurological examination did not reveal any focal deficits. SKIN: No rashes. Assessment and plan Acute inferior wall STEMI History of CAD status post CABG in 2018 with NUÑEZ to LAD SVG to PDA SVG to OM Bradycardia Hypertension Hyperlipidemia History of substance abuse Monitor vital signs Monitor CBC Monitor CMP Continue telemetry monitoring S/p successful stenting of the SVG to the RCA with reduction of stenosis from 100% to less than 5% with IVUS imaging and KAMAR-3 flow,Chronically occluded SVG to the OM.Chronically occluded mid LAD with diffuse proximal disease, Diffuse severe disease in the left circumflex subtotally occluded proximal circumflex. To the OM 1 and 2. Continue dual antiplatelet therapy in the form of aspirin and Brilinta Beta-blockers on hold secondary to bradycardia Continue lisinopril Cardiology following Labs and medication were reviewed.. Continue same treatment. Continue with symptomatic treatment. Resume home medication. Monitor labs and vitals. DVT and GI prophylaxis. Further recommendations as per clinical course of the patient Dictation was produced using [employer] dictation software. please excuse any g rammatical, word or spelling errors. Objective - Vital Signs Vital signs: Vital Signs Temp 98.1 F 12/25/23 04:00 Pulse 60 12/25/23 08:00 Resp 15 12/25/23 08:00 BP 91/60 12/25/23 08:00 Pulse Ox 96 12/25/23 08:00 FiO2 Intake & Output 12/24/23 12/25/23 12/25/23 18:59 06:59 18:59 Intake Total 1330 650 Output Total 1650 700 0 Balance -320 -50 0 Weight 90.718 kg 88.1 kg Intake: IV 630 Sodium Chloride 0.9% 1, 630 000 ml In Empty Bag 1 bag @ 1 ML/KG/HR 90.718 mls/ hr IV .Q11H2M [facility]ICRUZ Rx#: [id number] Oral 700 650 Output: Urine 1650 700 0 Other: Voiding Method Urinal Urinal # Voids 1 - Labs CBC & Chem 7: 12/24/23 04:12 12/25/23 11:30 Labs: Abnormal Lab Results - Last 24 Hours (Table) 06/17/24 Range/Units 04:12 Triglycerides 227.00 H (0.00-149.00) mg/dL Cholesterol 202.00 H (0.00-200.00) mg/dL VLDL Cholesterol, Calc 45.40 H (5.00-40.00) mg/dL HDL Cholesterol 32.10 L (40.00-60.00) mg/dL
[2023-12-26 06:26] LABS: ALT 37 U/L (4-49); AST 65 U/L (17-59); African American GFR (CKD) >90 (>60 ml/min/1.73 sqM); Albumin 3.8 g/dL (3.5-5.0); Alkaline Phosphatase 62 U/L (38-126); Anion Gap 4 mmol/L; Blood Urea Nitrogen 14 mg/dL (9-20); Calcium 8.8 mg/dL (8.4-10.2); Carbon Dioxide 23 mmol/L (22-30); Chloride 110 mmol/L (98-107); Glucose 102 mg/dL (74-99); Non-African American GFR(CKD) >90 (>60 ml/min/1.73 sqM); Potassium 3.9 mmol/L (3.5-5.1); Sodium 137 mmol/L (137-145); Total Bilirubin 0.8 mg/dL (0.2-1.3); Total Protein 6.2 g/dL (6.3-8.2)
[2023-12-26 06:34] LABS: HCT 51.6 % (39.0-53.0); HGB 16.5 gm/dL (13.0-17.5); MCH 30.8 pg (25.0-35.0); MCHC 31.9 g/dL (31.0-37.0); MCV 96.3 fL (80.0-100.0); Mean Platelet Volume 8.3; Platelet Count 221 k/uL (150-450); RBC 5.36 m/uL (4.30-5.90); RDW 14.2 % (11.5-15.5); WBC 9.1 k/uL (3.8-10.6)
[2023-12-26 07:23] LABS: Band Neutrophils % 1 %; Eosinophils # (M) 0.18 k/uL (0-0.7); Lymphocytes # (M) 4.46 k/uL (1.0-4.8); Monocytes # (M) 0.36 k/uL (0-1.0); Neutrophils % (M) 44 %; Nucleated Red Blood Cells 0 /100 WBC (0-0); Total Cells Counted 100
--- NOTE | 2023-12-26 07:42 | P.PN ---
Subjective Progress Note Date: 12/26/23 PROGRESS NOTE The patient is a 53-year-old male, with known history of CAD, status post CABG who presented with an acute inferior wall myocardial infarction and underwent stenting of the acutely occluded SVG to the PDA. He has chronically occluded SVG to the OM with patent NUÑEZ to the LAD. He is feeling well this morning. He denies any chest discomfort. His breathing is stable. He has episodes of sinus bradycardia. His blood pressure is on the low side but stable. He had no evidence of malignant arrhythmia. His echocardiogram showed ejection fraction of around 40% with mid ventricular and basal hypokinesis and moderate mitral regurgitation. December 25: The patient is doing well this morning. He denies any symptoms of chest discomfort. His breathing is stable. He denies any dizziness or palpitations. He denies any nausea. He continues to be in sinus mechanism with sinus bradycardia. His blood pressure is on the low side but he has no significant hypotension. His urinary output is stable. Medications: Aspirin, Lipitor 80 mg daily, Brilinta 90 mg twice a day, Zestril 2.5 mg daily. PHYSICAL EXAMINATION: Blood pressure 99/70 heart rate 51 LUNGS: Clear to auscultation HEART: Regular rate and rhythm, S1, S2. No S3. Systolic ejection murmur ABDOMEN: Soft, nontender, no organomegaly EXTREMETIES: No edema, LAB: Hemoglobin 16.5, potassium 3.9, BUN 14, creatinine 0.67 Pending IMPRESSION: 1. Status post STEMI with acutely occluded SVG to the PDA status post stenting 2. Status post CABG with chronically occluded SVG to the OM 3. History of hyperlipidemia 4. History of noncompliance 5. Ischemic cardiomyopathy PLAN: 1. Increase physical activity 2. Continue medical therapy 3. Continue holding beta-yaakov for now because of sinus bradycardia 4. Discharge home today, follow-up in 1 week. 5. Dual antiplatelet treatment for 1 year Objective - Vital Signs Vital signs: Vital Signs Temp 98.0 F 12/26/23 04:00 Pulse 51 L 12/26/23 04:00 Resp 13 12/26/23 04:00 BP 83/59 12/26/23 04:00 Pulse Ox 97 12/26/23 04:00 FiO2 Intake & Output 12/25/23 12/26/23 12/26/23 18:59 06:59 18:59 Intake Total 700 350 Output Total 1200 0 0 Balance -500 350 0 Intake: Oral 700 350 Output: Urine 1200 0 0 Other: Voiding Method Urinal Urinal # Voids 1 1 - Labs CBC & Chem 7: 12/26/23 05:54 12/26/23 05:54 Labs: Abnormal Lab Results - Last 24 Hours (Table) 12/25/23 12/26/23 Range/Units 11:30 05:54 Chloride 111 H 110 H (98-107) mmol/L Creatinine 0.58 L (0.66-1.25) mg/dL Glucose 102 H (74-99) mg/dL AST 65 H (17-59) U/L Total Protein 6.2 L (6.3-8.2) g/dL
[2023-12-26 07:55] VITALS: TEMP 98.1
[2023-12-26 11:30] VITALS: BP 126/69; PULSE 49; RESP 15
--- NOTE | 2023-12-26 12:47 | P.DS ---
Providers Date of admission: 12/24/23 04:15 Expected date of discharge: 12/26/23 Attending physician: Erich Morales Consults: 12/24/23 06:26 Consult Physician Routine Consulting Provider: [facility] Consult Reason/Comments: Post Interventional Patient Do you want consulting provider notified?: Already Contacted Primary care physician: Stated None Hospital Course: Discharge diagnoses; Acute inferior wall STEMI History of CAD status post CABG in 2018 with NUÑEZ to LAD SVG to PDA SVG to OM Bradycardia Hypertension Hyperlipidemia History of substance abuse Hospital course; patient is a 53-year-old gentleman with past medical history significant for coronary disease s/p CABG, hypertension who presented to the ER for chest pain. Patient stated that he was all right last night when he was woken up from sleep with chest pain that was central location, sharp, 10 x 10 intensity, radiating to his back, no complaint of nausea or vomiting but complaining of diaphoresis at the time. Patient was concerned that this pain was similar to his previous episode when he had the CABG. Because of the chest pain, patient came to the ER Hello Initial lab work done in the ER showed WBC 9.5, hemoglobin 15.8, platelet count 231, sodium 1 3, potassium 4.5, BUN 22, creatinine 0.74, glucose 149, troponin 0.115 EKG done in the ER showed heart rate of 43, ST segment elevation was noticeable in leads II, III and aVF. Recovery Specialist was activated and patient went for urgent cardiac cath. Cardiac cath was done with successful stenting of the SVG to the RCA with reduction of stenosis from 100% to less than 5% with IVUS imaging and KAMAR-3 flow,Chronically occluded SVG to the OM.Chronically occluded mid LAD with diffuse proximal disease, Diffuse severe disease in the left circumflex subtotally occluded proximal circumflex. To the OM 1 and 2. Patient admitted to internal medicine service 12/24. Patient seen and examined. Denies any chest pain. Denies any lightness or dizziness. 12/25. Patient seen and examined. Cardiology cleared the patient for discharge on aspirin, Brilinta, patient is not being discharged on any beta-yaakov because of bradycardia. Outpatient follow-up with cardiology and PCP PHYSICAL EXAMINATION: GENERAL: The patient is alert and oriented x3, not in any acute distress. Well developed, well nourished. HEENT: Pupils are round and equally reacting to light. EOMI. No scleral icterus. No conjunctival pallor. Normocephalic, atraumatic. No pharyngeal erythema. No thyromegaly. CARDIOVASCULAR: S1 and S2 present. No murmurs, rubs, or gallops. PULMONARY: Chest is clear to auscultation, no wheezing or crackles. ABDOMEN: Soft, nontender, nondistended, normoactive bowel sounds. No palpable organomegaly. MUSCULOSKELETAL: No joint swelling or deformity. EXTREMITIES: No cyanosis, clubbing, or pedal edema. NEUROLOGICAL: Gross neurological examination did not reveal any focal deficits. SKIN: No rashes. Dictation was produced using [employer] dictation software. please excuse any grammatical, word or spelling errors. Patient Condition at Discharge: Good Plan - Discharge Summary Discharge Rx Participant: No New Discharge Prescriptions: New Ticagrelor [Brilinta] 90 mg PO BID #180 tab Nitroglycerin Sl Tabs [Nitrostat] 0.4 mg SUBLINGUAL Q5M PRN #25 tab PRN Reason: Chest Pain Aspirin 81 mg PO DAILY tab Atorvastatin [Lipitor] 80 mg PO HS #90 tab lisinopriL [Zestril] 2.5 mg PO DAILY #180 tab Continue Buprenorphine/Naloxone 8Mg/2Mg [Suboxone 8-2Mg Film] 1 - 2 film SUBLINGUAL DIRECTED Discharge Medication List Buprenorphine/Naloxone 8Mg/2Mg [Suboxone 8-2Mg Film] 1 - 2 film SUBLINGUAL DIRECTED 12/24/23 [History] Aspirin 81 mg PO DAILY tab 12/26/23 [Rx] Atorvastatin [Lipitor] 80 mg PO HS #90 tab 12/26/23 [Rx] Nitroglycerin Sl Tabs [Nitrostat] 0.4 mg SUBLINGUAL Q5M PRN #25 tab 12/26/23 [Rx] Ticagrelor [Brilinta] 90 mg PO BID #180 tab 12/26/23 [Rx] lisinopriL [Zestril] 2.5 mg PO DAILY #180 tab 12/26/23 [Rx] Follow up Appointment(s)/Referral(s): Alejandro Cobb MD [Medical Doctor] - 01/02/24 10:00 am (May be seeing Dr. Pandya) None,Stated [Primary Care Provider] - 1-2 days Patient Instructions/Handouts: Heart Attack (DC), Heart Healthy Diet (DC) Discharge/Stand Alone Forms: [facility] PCPs Discharge Disposition: HOME SELF-CARE
== END 2023-12-26 13:10 | disposition home or self-care (01) | DRG 174 ==
LOC: EC 03:59 → 2SICU 04:15
PROVIDERS: ADMIT Internal Medicine; ATTEND Internal Medicine
PROC: 027135Z Dilation of Coronary Artery, Two Arteries with Two Drug-eluting Intraluminal Devices, Percutaneous Approach (ICD-10-PCS; principal; 2023-12-24 04:31)
PROC: B241ZZ3 Ultrasonography of Multiple Coronary Arteries, Intravascular (ICD-10-PCS; principal; 2023-12-24 04:31)
PROC: 4A023N7 Measurement of Cardiac Sampling and Pressure, Left Heart, Percutaneous Approach (ICD-10-PCS; 2023-12-24 04:31)
PROC: B2131ZZ Fluoroscopy of Multiple Coronary Artery Bypass Grafts using Low Osmolar Contrast (ICD-10-PCS; 2023-12-24 04:31)
PROC: B2111ZZ Fluoroscopy of Multiple Coronary Arteries using Low Osmolar Contrast (ICD-10-PCS; 2023-12-24 04:31)
DX: I21.19 ST elevation (STEMI) myocardial infarction involving other coronary artery of inferior wall (principal); I25.10 Atherosclerotic heart disease of native coronary artery without angina pectoris; I25.2 Old myocardial infarction; I25.5 Ischemic cardiomyopathy; F14.11 Cocaine abuse, in remission; F12.11 Cannabis abuse, in remission; E78.5 Hyperlipidemia, unspecified; I10 Essential (primary) hypertension; I25.810 Atherosclerosis of coronary artery bypass graft(s) without angina pectoris; I34.0 Nonrheumatic mitral (valve) insufficiency; I44.2 Atrioventricular block, complete; Z79.82 Long term (current) use of aspirin; Z79.899 Other long term (current) drug therapy; Z87.891 Personal history of nicotine dependence; Z91.199 Patient's noncompliance with other medical treatment and regimen due to unspecified reason
CPT/HCPCS: 71045; 76937; 80048; 80053; 80061; 83735; 84484; 85025; 85610; 85730; 92978; 93005; 93306; 93459; 96374; 96375; 99291

== ENCOUNTER 2024-02-28 16:56 | Emergency (ER) | payer OTHER | END 2024-02-28 18:40 | disposition left against medical advice (07) | LOC: EC 16:56 | CPT/HCPCS: 93005; 99284 ==